=== PATIENT | male | born 1950 | race Caucasian/White ===

== ENCOUNTER → 2018-05-06 | Outpatient (CLI) | payer MEDICARE, SELFPAY ==
[~2018-05-06] MED LIST: AMOX500 PO; ASPI81CH PO; Amiodarone HCl200 MG PO; CEPH500 PO; CLOP75 PO; ESZO3 PO; FLUC200 PO; HYDR1TAB94 PO; LEVSOD88 PO; LORA.5 PO; MIRT15 PO
[2018-05-06 11:12] LABS: BASOPHILS ABSOLUTE AUTO 0.06 K/mm3 (0.00-0.23); BASOPHILS PERCENT AUTO 1 % (0-2); EOSINOPHILS ABSOLUTE AUTO 0.07 K/mm3 (0.00-0.68); EOSINOPHILS PERCENT AUTO 1 % (0-6); Hematocrit 46.6 % (37.0-53.0); Hemoglobin 16.5 g/dL (13.5-17.5); IMMATURE GRAN ABSOLUTE AUTO 0.09 K/mm3 (0.00-0.10); IMMATURE GRAN PERCENT AUTO 1 % (0-1); LYMPHOCYTES ABSOLUTE AUTO 0.84 K/mm3 (0.84-5.20); LYMPHOCYTES PERCENT AUTO 11 % (21-46); MONOCYTES ABSOLUTE AUTO 0.58 K/mm3 (0.16-1.47); MONOCYTES PERCENT AUTO 8 % (4-13); Mean Corpuscular HGB 35.6 pg (26.0-34.0); Mean Corpuscular HGB Conc 35.4 g/dL (31.5-36.5); Mean Corpuscular Volume 101 fL (80-100); Mean Platelet Volume 10.2 fL (9.1-12.4); NEUTROPHILS ABSOLUTE AUTO 6.08 K/mm3 (1.96-9.15); NEUTROPHILS PERCENT AUTO 79 % (41-73); Platelet Count 187 K/mm3 (150-400); RDW Coefficient Variation 13.1 % (11.7-14.2); RDW Standard Deviation 48.6 fL (35.1-46.3); Red Blood Cell Count 4.63 M/mm3 (4.30-5.90); White Blood Cell Count 7.72 K/mm3 (4.00-11.30)
[2018-05-06 11:30] LABS: Alanine Aminotransfer (ALT/SGP 28 U/L (12-78); Albumin, Blood 4.1 g/dL (3.4-5.0); Albumin/Globulin Ratio 1.2 (0.8-1.8); Alk Phos 86 U/L (40-126); Anion Gap 10 mmol/L (6-16); Aspartate Aminotrans (AST/SGOT 27 U/L (12-37); Bilirubin, Total 0.5 mg/dL (0.1-1.0); Blood Urea Nitrogen 14 mg/dL (8-24); Bun/Creatinine Ratio 9.1 (12.0-20.0); CO2, Blood 26 mmol/L (21-32); Calcium, Blood 9.1 mg/dL (8.5-10.1); Chloride, Blood 102 mmol/L (98-108); Creatinine, Blood 1.54 mg/dL (0.60-1.20); Globulin, Blood 3.5 g/dL (2.2-4.0); Glomerular Filtration Rate 46 (60-); Glucose, Blood 103 mg/dL (70-99); Potassium, Blood 4.2 mmol/L (3.5-5.5); Sodium, Blood 138 mmol/L (136-145); Thyroid Stimulating Hormone 5.384 uIU/mL (0.360-4.800); Total Protein, Blood 7.6 g/dL (6.4-8.2)
[2018-05-06 11:31] LABS: Troponin I <0.017 ng/mL (0.000-0.040)
== END ==
LOC: LAB EV 11:01 → LAB SHORT 11:01
PROVIDERS: Emergency Medicine
DX: R00.2 Palpitations (principal)
CPT/HCPCS: 80053; 84443; 84484; 85025

== ENCOUNTER 2020-09-15 16:15 | Emergency (ER) | payer MEDICARE ==
[~2020-09-15] VITALS: Ht 177.8 cm; Wt 68.0 kg
[2020-09-15 17:04] LABS: BASOPHILS ABSOLUTE AUTO 0.06 K/mm3 (0.00-0.23); BASOPHILS PERCENT AUTO 1 % (0-2); EOSINOPHILS ABSOLUTE AUTO 0.13 K/mm3 (0.00-0.68); EOSINOPHILS PERCENT AUTO 1 % (0-6); Hemoglobin 16.1 g/dL (13.5-17.5); IMMATURE GRAN ABSOLUTE AUTO 0.07 K/mm3 (0.00-0.10); IMMATURE GRAN PERCENT AUTO 1 % (0-1); LYMPHOCYTES ABSOLUTE AUTO 3.13 K/mm3 (0.84-5.20); LYMPHOCYTES PERCENT AUTO 33 % (21-46); MONOCYTES ABSOLUTE AUTO 0.82 K/mm3 (0.16-1.47); MONOCYTES PERCENT AUTO 9 % (4-13); Mean Corpuscular HGB 35.8 pg (26.0-34.0); Mean Corpuscular Volume 102 fL (80-100); Mean Platelet Volume 10.2 fL (9.1-12.4); NEUTROPHILS ABSOLUTE AUTO 5.42 K/mm3 (1.96-9.15); NEUTROPHILS PERCENT AUTO 56 % (41-73); Platelet Count 160 K/mm3 (150-400); RDW Coefficient Variation 13.5 % (11.7-14.2); RDW Standard Deviation 51.3 fL (35.1-46.3); White Blood Cell Count 9.63 K/mm3 (4.00-11.30)
[2020-09-15 17:20] LABS: Albumin, Blood 4.1 g/dL (3.4-5.0); Albumin/Globulin Ratio 1.3 (0.8-1.8); Bilirubin, Total 0.4 mg/dL (0.1-1.0); Calcium, Blood 9.8 mg/dL (8.5-10.1); Creatinine, Blood 1.43 mg/dL (0.60-1.20); Globulin, Blood 3.2 g/dL (2.2-4.0); Potassium, Blood 4.2 mmol/L (3.5-5.5); Total Protein, Blood 7.3 g/dL (6.4-8.2); Troponin I 0.024 ng/mL (0.000-0.040)
[2021-01-06] MEDS ORDERED: 1/2 NS 250ml250 ML (15:48)
[2021-01-06] MEDS ORDERED: ATOR10 PO (15:48)
[2021-01-06] MEDS ORDERED: ENTRESTO 24 MG1 EACH PO (15:48)
[2021-01-06] MEDS ORDERED: Aspir 8181 MG PO (15:49)
[2021-01-06] MEDS ORDERED: TRAZ100 PO (15:49)
== END 2020-09-15 22:00 | disposition home or self-care (01) ==
LOC: ER 16:15
PROVIDERS: Physician Assistant
DX: I10 Essential (primary) hypertension (principal); Z79.899 Other long term (current) drug therapy; Z87.891 Personal history of nicotine dependence
CPT/HCPCS: 36415; 71046; 80053; 84484; 85025; 93005; 93010; 99285-25

== ENCOUNTER 2021-01-07 07:23 | Day surgery (SDC) | payer MEDICARE ==
[~2021-01-07] VITALS: Ht 177.8 cm; Wt 69.2 kg
[~2021-01-07 07:23] MED LIST changes: +1/2 NS 250ml250 ML; +ATOR10 PO; +Aspir 8181 MG PO; +ENTRESTO 24 MG1 EACH PO; +TRAZ100 PO
[2021-01-07] MEDS ORDERED: Isosorbide Mono30 MG PO (10:01)
--- NOTE | 2021-01-07 12:30 | NUR ---
PT DRESSED, TR BAND REMOVED, SITE CLEANSED. CLOTH DOT PLACED, NO BLEEDING NOTED. SALINE LOCK REMOVED WITH CATHETER INTACT. RIGHT ARM PLACED IN SLING. DISCHARGE INSTRUCTIONS REVIEWED WITH PT. PT VERBALIZES UNDERSTANDING OF INSTRUCTIONS. PT TO PRIVATE VEHICLE PER W/C.
== END 2021-01-07 12:30 | disposition home or self-care (01) ==
LOC: MHTC 07:23
DX: I13.0 Hypertensive heart and chronic kidney disease with heart failure and stage 1 through stage 4 chronic kidney disease, or unspecified chronic kidney disease (principal); I50.21 Acute systolic (congestive) heart failure; R94.30 Abnormal result of cardiovascular function study, unspecified; I47.2 Ventricular tachycardia; I48.0 Paroxysmal atrial fibrillation; E78.5 Hyperlipidemia, unspecified; N18.9 Chronic kidney disease, unspecified; E03.9 Hypothyroidism, unspecified; Z87.891 Personal history of nicotine dependence; Z95.810 Presence of automatic (implantable) cardiac defibrillator; Z79.82 Long term (current) use of aspirin
CPT/HCPCS: 76937; 93005; 93010; 93454; 99152; 99153; A9270; C1769; C1894; J2250; J3010; J7030; J7050; Q9967

== ENCOUNTER → 2021-08-05 | Outpatient (CLI) | payer MEDICARE ==
[~2021-08-05] MED LIST changes: +Isosorbide Mono30 MG PO
[2021-08-05 15:22] LABS: Hematocrit 40.3 % (37.0-53.0); Hemoglobin 14.1 g/dL (13.5-17.5); Mean Corpuscular HGB 34.7 pg (26.0-34.0); Mean Corpuscular Volume 99 fL (80-100); Mean Platelet Volume 10.1 fL (9.1-12.4); Platelet Count 227 K/mm3 (150-400); RDW Standard Deviation 47.7 fL (35.1-46.3); Red Blood Cell Count 4.06 M/mm3 (4.30-5.90); White Blood Cell Count 32.12 K/mm3 (4.00-11.30)
[2021-08-05 15:27] LABS: Bun/Creatinine Ratio 13.1 (12.0-20.0); Calcium, Blood 8.9 mg/dL (8.5-10.1); Creatinine, Blood 1.37 mg/dL (0.60-1.20); Potassium, Blood 4.6 mmol/L (3.5-5.5)
[2021-08-05 15:54] LABS: BAND PERCENT MAN 13 % (0-8); BASOPHILS PERCENT MAN 0 % (0-2); EOSINOPHILS PERCENT MAN 0 % (0-6); LYMPHOCYTES PERCENT MAN 5 % (21-46); MONOCYTES PERCENT MAN 0 % (4-13); NEUTROPHILS ABSOLUTE MAN 30.51 K/mm3 (1.96-9.15); SEG NEUTROPHILS PERCENT MAN 82 % (41-73); TOTAL CELLS COUNTED 100
== END ==
LOC: LAB 15:13 → LAB SHORT 15:13
PROVIDERS: Physician Assistant Surgical
DX: R06.00 Dyspnea, unspecified (principal)
CPT/HCPCS: 80048; 83880; 85025

== ENCOUNTER 2021-09-16 20:05 | Inpatient (IN) | payer MEDICARE ==
[~2021-09-16] VITALS: Ht 177.8 cm; Wt 67.7 kg
[2021-09-16 20:36] LABS: BASOPHILS ABSOLUTE AUTO 0.06 K/mm3 (0.00-0.23); BASOPHILS PERCENT AUTO 1 % (0-2); EOSINOPHILS ABSOLUTE AUTO 0.15 K/mm3 (0.00-0.68); EOSINOPHILS PERCENT AUTO 2 % (0-6); Hematocrit 40.8 % (37.0-53.0); Hemoglobin 14.3 g/dL (13.5-17.5); IMMATURE GRAN ABSOLUTE AUTO 0.05 K/mm3 (0.00-0.10); IMMATURE GRAN PERCENT AUTO 1 % (0-1); LYMPHOCYTES PERCENT AUTO 38 % (21-46); MONOCYTES ABSOLUTE AUTO 0.68 K/mm3 (0.16-1.47); MONOCYTES PERCENT AUTO 7 % (4-13); Mean Corpuscular HGB 34.1 pg (26.0-34.0); Mean Corpuscular Volume 97 fL (80-100); Mean Platelet Volume 9.8 fL (9.1-12.4); NEUTROPHILS ABSOLUTE AUTO 5.26 K/mm3 (1.96-9.15); NEUTROPHILS PERCENT AUTO 53 % (41-73); Platelet Count 210 K/mm3 (150-400); RDW Standard Deviation 50.1 fL (35.1-46.3); Red Blood Cell Count 4.19 M/mm3 (4.30-5.90)
[2021-09-16 20:54] LABS: International Normalized Ratio 0.97; Prothrombin Time Results 10.2 Sec (9.7-11.5)
[2021-09-16 20:59] LABS: Albumin/Globulin Ratio 1.2 (0.8-1.8); Bilirubin, Total 0.4 mg/dL (0.1-1.0); Bun/Creatinine Ratio 12.2 (12.0-20.0); Calcium, Blood 9.4 mg/dL (8.5-10.1); Creatinine, Blood 1.47 mg/dL (0.60-1.20); Globulin, Blood 3.3 g/dL (2.2-4.0); Magnesium, Blood 2.2 mg/dL (1.6-2.4); Potassium, Blood 4.2 mmol/L (3.5-5.5); Total Protein, Blood 7.3 g/dL (6.4-8.2)
[2021-09-16 23:15] LABS: Bun/Creatinine Ratio 12.5 (12.0-20.0); Calcium, Blood 8.9 mg/dL (8.5-10.1); Creatinine, Blood 1.28 mg/dL (0.60-1.20)
[2021-09-16] MEDS ORDERED: VITAMIN D5000 UNIT PO (23:27)
[2021-09-16] MEDS ORDERED: TURMERIC500 M2 PO (23:29)
[2021-09-17 01:11] LABS: Source, Urine Clean Catch
[2021-09-17 01:12] LABS: Bilirubin, Urine Neg (Neg); Blood, Urine Neg (Neg); Glucose Qualitative, Urine Neg (Neg); Ketones, Urine 1+ (Neg); Leukocyte Esterase, Urine Neg (Neg); Nitrite, Urine Neg (Neg); Protein, Urine Neg (Neg); Specific Gravity, Urine 1.015 (1.003-1.022); Urobilinogen, Urine NORM (Normal)
[2021-09-17 01:17] LABS: Appearance, Urine Clear (Clear); Color, Urine Yellow (P-Yellow)
[2021-09-17 04:38] LABS: BASOPHILS ABSOLUTE AUTO 0.05 K/mm3 (0.00-0.23); BASOPHILS PERCENT AUTO 1 % (0-2); EOSINOPHILS ABSOLUTE AUTO 0.18 K/mm3 (0.00-0.68); EOSINOPHILS PERCENT AUTO 2 % (0-6); Hematocrit 39.5 % (37.0-53.0); Hemoglobin 13.7 g/dL (13.5-17.5); IMMATURE GRAN ABSOLUTE AUTO 0.06 K/mm3 (0.00-0.10); IMMATURE GRAN PERCENT AUTO 1 % (0-1); LYMPHOCYTES ABSOLUTE AUTO 1.58 K/mm3 (0.84-5.20); LYMPHOCYTES PERCENT AUTO 21 % (21-46); MONOCYTES ABSOLUTE AUTO 0.74 K/mm3 (0.16-1.47); MONOCYTES PERCENT AUTO 10 % (4-13); Mean Corpuscular HGB 34.3 pg (26.0-34.0); Mean Corpuscular HGB Conc 34.7 g/dL (31.5-36.5); Mean Corpuscular Volume 99 fL (80-100); NEUTROPHILS ABSOLUTE AUTO 4.91 K/mm3 (1.96-9.15); NEUTROPHILS PERCENT AUTO 65 % (41-73); Platelet Count 173 K/mm3 (150-400); RDW Standard Deviation 51.2 fL (35.1-46.3); White Blood Cell Count 7.52 K/mm3 (4.00-11.30)
[2021-09-17 04:59] LABS: Albumin, Blood 3.3 g/dL (3.4-5.0); Albumin/Globulin Ratio 1.2 (0.8-1.8); Bilirubin, Total 0.6 mg/dL (0.1-1.0); Bun/Creatinine Ratio 12.5 (12.0-20.0); Calcium, Blood 8.7 mg/dL (8.5-10.1); Creatinine, Blood 1.2 mg/dL (0.60-1.20); Globulin, Blood 2.7 g/dL (2.2-4.0); Potassium, Blood 3.9 mmol/L (3.5-5.5)
[2021-09-17 05:09] LABS: CPK Creatine Kinase 74 U/L (39-308)
--- NOTE | 2021-09-17 06:00 | NUR ---
PT ADMITTED TO ROOM ICU 4 AT 2300. PT SLIDE TRANSFERRED TO BED FROM [facility]. NO COMPLAINTS OF CHEST PAIN OR PRESSURE. PER MONITOR, PT APPROX 50 -75 PERCENT ATRIAL PACED. PT ALERT AND ORIENTED. VERY GOOD HISTORIAN. WILL REVIEW CHART AND PLAN OF CARE FOR THIS PT.
--- NOTE | 2021-09-17 06:30 | NUR ---
PT HAS COMPLAINT THAT WHEN HE TAKES AMIODRARONE, IT AFFECTS HIS SLEEP, AND THAT HE FEELS HE HAD NOT GOTTEN ANY SLEEP SINCE ADMIT. CALL MADE TO DR SINGLETARY AND ORDER RECEIVED FOR 0.5MG ATIVAN. WHEN MED WAS AVAILABLE, THIS WAS BROUGHT TO PT, AT THAT TIME, PT WAS ASLEEP SO MED WAS HELD. PT CONTINUES ON AMIODARONE DRIP WITHOUT ANY V-TACH. REMAINS MOSTLY PACED WITH OCCASSIONAL PVC'S. AGAIN, NO CHEST PAIN OR PRESSURE. EKG OBTAINED THIS AM. PT VOIDS Q.S. MOVES ABOUT IN BED ON HIS OWN. WILL CONTINUE TO MONITOR PT, AND WILL REPORT OFF TO ONCOMING RN.
--- NOTE | 2021-09-17 07:40 | NUR ---
PT RESTING ON ROOM AIR. VITALS STABLE AT THIS TIME. PECER NOTED TO HAVE TWO ATRIAL PACING SPIKES BEFORE A VENTRICULAR RESPONSE WAS INITIATED BY THE HEART, NO VENTRICULAR PACING SPIKES SEEN AT THIS TIME. [employer] INTERROGATION REPORTS AICD TO BE AV PACED. PT'S AK INTERVAL IS .25
[2021-09-17 13:45] LABS: CPK Creatine Kinase 79 U/L (39-308)
--- NOTE | 2021-09-17 16:43 | NUR ---
SUMMARY NEURO; A/O X4, WNL LUNGS: WNL CARDIAC; PT AICD IS AV PACE AAI=DDD, MOSTLY FIRING ATRIAL WITH FEW VENTRICULAR SPIKES AT A RATE OF 60 BPM THROUGHOUT SHIFT. SEE [employer] INTERROGATE INFO IN PAPER CHART. AMIO DRIP RUNNING AT .5. PLAN TO FINISH BAG THEN TRANSITION TO PO PRIOR TO DISCHARGE. GI/: WNL, LAST BM 09/17/21
--- NOTE | 2021-09-17 18:03 | NUR ---
PT PACER DID NOT CAPTURE FOR FOUR BEATS AT 09/17/21 AT 17:55:14. ATTEMPTED TO NOTIFY TRAFFIC ENGINEERING DIRECTORLAINA- NO ANSWER AT THIS TIME. STRIP PLACED IN BOTH ELECTRONIC AND PAPER CHART
--- NOTE | 2021-09-17 20:00 | NUR ---
PT IS A/0X4, ON ROOM AIR, VISITING WITH FRIEND IN ROOM. AMIODARONE GTT WILL BE FINISHED THIS SHIFT AND HE WILL RESUME PO AMIODARONE TOMORROW. PT STATES HE IS VERY TIRED AND WANTS TO TRY AND SLEEP TONIGHT. HE STANDS AT BEDSIDE WITH NURSE IN ROOM TO USE THE URINAL. ON MONITOR, AICD IS SHOWING OCCASIONAL VENTRICULAR PACING WITH CAPTURE. ALL VSS AT THIS TIME. ORDERS REVIEWED AND WILL TREAT PRESCRIBED.
--- NOTE | 2021-09-18 06:47 | NUR ---
NO ACUTE EVENTS OVERNIGHT. AICD CONTINUED TO VENTRICULAR PACE WHEN NEEDED, RATE STAYED ABOVE SET ATRIAL RATE OF 60, RHYTHM ON MONITOR SHOWED AFIB. PT SLEPT WELL FOR MOST OF THE SHIFT. VITALS REMAINED STABLE ON ROOM AIR AND AFEBRILE. AMIODARONE GTT OFF AT 0048. HE IS ANTICIPATING DISCHARGE HOME TODAY. WILL REPORT TO ONCOMING SHIFT WHEN AVAILABLE.
--- NOTE | 2021-09-18 07:30 | NUR ---
TOOK OVER CARE OF PT AT 0700, PT RESTING ON RA, AMIODARONE INFUSION COMPLETE
== END 2021-09-18 13:25 | disposition home or self-care (01) | DRG 309 ==
LOC: ER 20:05 → ICUW 23:07 → ICUE 23:07
PROVIDERS: Student in an Organized Health Care Education/Training Program; ADMIT Internal Medicine
PROC: 4B02XTZ Measurement of Cardiac Defibrillator, External Approach (ICD-10-PCS; principal; 2021-09-16)
DX: I47.2 Ventricular tachycardia (principal); I50.22 Chronic systolic (congestive) heart failure; I42.8 Other cardiomyopathies; E78.5 Hyperlipidemia, unspecified; E03.9 Hypothyroidism, unspecified; Z79.899 Other long term (current) drug therapy; Z98.890 Other specified postprocedural states; Z85.828 Personal history of other malignant neoplasm of skin; Z95.1 Presence of aortocoronary bypass graft; I25.2 Old myocardial infarction; Z95.0 Presence of cardiac pacemaker; Z86.16 Personal history of COVID-19; I48.0 Paroxysmal atrial fibrillation
CPT/HCPCS: 36415; 71045; 80048; 80053; 81003; 82550; 83735; 83880; 84484; 85025; 85610; 85730; 93005; 93010; 93306; 99285-25; A9270; J0282; J1650; J3475; J7060

== ENCOUNTER 2022-05-23 10:35 | Day surgery (SDC) | payer MEDICARE ==
[~2022-05-23 10:35] MED LIST changes: +TURMERIC500 M2 PO; +VITAMIN D5000 UNIT PO
[2022-05-23] MEDS ORDERED: VALS80 (11:32)
== END 2022-05-23 13:15 | disposition home or self-care (01) ==
DX: Z12.11 Encounter for screening for malignant neoplasm of colon (principal); Z86.010 Personal history of colon polyps; Z80.0 Family history of malignant neoplasm of digestive organs; E03.9 Hypothyroidism, unspecified; E78.5 Hyperlipidemia, unspecified; I48.91 Unspecified atrial fibrillation; J44.9 Chronic obstructive pulmonary disease, unspecified; Z87.891 Personal history of nicotine dependence; I12.9 Hypertensive chronic kidney disease with stage 1 through stage 4 chronic kidney disease, or unspecified chronic kidney disease; N18.9 Chronic kidney disease, unspecified; Z79.82 Long term (current) use of aspirin; Z79.899 Other long term (current) drug therapy

== ENCOUNTER → 2022-11-14 | Outpatient (CLI) | payer MEDICARE ==
[~2022-11-14] MED LIST changes: +Bisoprolol Fumar5 MG PO; +DOXY100 PO; +GUAI600T33 PO; +LEVOTHYROXINE112 M19 PO; +MAGNESIUM OXID500 MG PO; +VALS80; +VALS80 PO
[2022-11-14 09:43] LABS: BASOPHILS ABSOLUTE AUTO 0.05 K/mm3 (0.00-0.23); BASOPHILS PERCENT AUTO 0 % (0-2); EOSINOPHILS ABSOLUTE AUTO 0.02 K/mm3 (0.00-0.68); EOSINOPHILS PERCENT AUTO 0 % (0-6); Hematocrit 39.2 % (37.0-53.0); Hemoglobin 13.6 g/dL (13.5-17.5); IMMATURE GRAN ABSOLUTE AUTO 0.26 K/mm3 (0.00-0.10); IMMATURE GRAN PERCENT AUTO 2 % (0-1); LYMPHOCYTES ABSOLUTE AUTO 0.63 K/mm3 (0.84-5.20); LYMPHOCYTES PERCENT AUTO 4 % (21-46); MONOCYTES ABSOLUTE AUTO 0.96 K/mm3 (0.16-1.47); MONOCYTES PERCENT AUTO 6 % (4-13); Mean Corpuscular HGB 35.5 pg (26.0-34.0); Mean Corpuscular HGB Conc 34.7 g/dL (31.5-36.5); Mean Corpuscular Volume 102 fL (80-100); NEUTROPHILS ABSOLUTE AUTO 14.33 K/mm3 (1.96-9.15); NEUTROPHILS PERCENT AUTO 88 % (41-73); Platelet Count 150 K/mm3 (150-400); RDW Coefficient Variation 14.5 % (11.7-14.2); RDW Standard Deviation 54.3 fL (35.1-46.3); Red Blood Cell Count 3.83 M/mm3 (4.30-5.90); White Blood Cell Count 16.25 K/mm3 (4.00-11.30)
[2022-11-14 09:44] LABS: Albumin, Blood 2.9 g/dL (3.4-5.0); Albumin/Globulin Ratio 0.7 (0.8-1.8); Bilirubin, Total 0.5 mg/dL (0.1-1.0); Bun/Creatinine Ratio 20.6 (12.0-20.0); Calcium, Blood 9.5 mg/dL (8.5-10.1); Creatinine, Blood 1.36 mg/dL (0.60-1.20); Globulin, Blood 3.9 g/dL (2.2-4.0); Potassium, Blood 4.7 mmol/L (3.5-5.5); Total Protein, Blood 6.8 g/dL (6.4-8.2)
== END | disposition home or self-care (01) ==
LOC: LAB 09:20 → LAB SHORT 09:20
PROVIDERS: Physician Assistant Medical
DX: R53.83 Other fatigue (principal)
CPT/HCPCS: 80053; 82550; 83690; 85025

== ENCOUNTER → 2022-11-15 | Outpatient (CLI) | payer MEDICARE ==
[~2022-11-15] MED LIST changes: +ATEN25 PO; +Prinivil10 MG PO; +SENN187 PO
[2022-11-15 15:37] LABS: BASOPHILS ABSOLUTE AUTO 0.06 K/mm3 (0.00-0.23); BASOPHILS PERCENT AUTO 1 % (0-2); EOSINOPHILS ABSOLUTE AUTO 0.01 K/mm3 (0.00-0.68); EOSINOPHILS PERCENT AUTO 0 % (0-6); Hematocrit 39.7 % (37.0-53.0); Hemoglobin 14.2 g/dL (13.5-17.5); IMMATURE GRAN ABSOLUTE AUTO 0.44 K/mm3 (0.00-0.10); IMMATURE GRAN PERCENT AUTO 4 % (0-1); LYMPHOCYTES ABSOLUTE AUTO 0.95 K/mm3 (0.84-5.20); LYMPHOCYTES PERCENT AUTO 9 % (21-46); MONOCYTES ABSOLUTE AUTO 0.92 K/mm3 (0.16-1.47); MONOCYTES PERCENT AUTO 9 % (4-13); Mean Corpuscular HGB 35.7 pg (26.0-34.0); Mean Corpuscular HGB Conc 35.8 g/dL (31.5-36.5); Mean Corpuscular Volume 100 fL (80-100); Mean Platelet Volume 11.5 fL (9.1-12.4); NEUTROPHILS PERCENT AUTO 77 % (41-73); Platelet Count 177 K/mm3 (150-400); RDW Coefficient Variation 14.2 % (11.7-14.2); Red Blood Cell Count 3.98 M/mm3 (4.30-5.90); White Blood Cell Count 10.28 K/mm3 (4.00-11.30)
== END | disposition home or self-care (01) ==
LOC: LAB 15:34 → LAB SHORT 15:34
PROVIDERS: Physician Assistant Medical
DX: J18.1 Lobar pneumonia, unspecified organism (principal)
CPT/HCPCS: 85025

== ENCOUNTER 2022-11-16 07:49 | Inpatient (IN) | payer MEDICARE ==
[~2022-11-16] VITALS: Ht 177.8 cm; Wt 64.6 kg
[~2022-11-16 07:49] MED LIST changes: -ATEN25 PO; -Bisoprolol Fumar5 MG PO; -DOXY100 PO; -GUAI600T33 PO; -LEVOTHYROXINE112 M19 PO; -MAGNESIUM OXID500 MG PO; -Prinivil10 MG PO; -SENN187 PO; -VALS80 PO
[2022-11-16 08:32] LABS: Hematocrit 38.2 % (37.0-53.0); Hemoglobin 13.3 g/dL (13.5-17.5); Mean Corpuscular HGB 34.9 pg (26.0-34.0); Mean Corpuscular HGB Conc 34.8 g/dL (31.5-36.5); Mean Corpuscular Volume 100 fL (80-100); Mean Platelet Volume 10.8 fL (9.1-12.4); Platelet Count 146 K/mm3 (150-400); RDW Coefficient Variation 14.1 % (11.7-14.2); RDW Standard Deviation 51.8 fL (35.1-46.3); Red Blood Cell Count 3.81 M/mm3 (4.30-5.90); White Blood Cell Count 10.25 K/mm3 (4.00-11.30)
[2022-11-16 08:50] LABS: Albumin, Blood 2.8 g/dL (3.4-5.0); Albumin/Globulin Ratio 0.8 (0.8-1.8); Bilirubin, Total 0.9 mg/dL (0.1-1.0); Bun/Creatinine Ratio 14.4 (12.0-20.0); Calcium, Blood 9.5 mg/dL (8.5-10.1); Creatinine, Blood 1.74 mg/dL (0.60-1.20); Globulin, Blood 3.5 g/dL (2.2-4.0); Magnesium, Blood 2.1 mg/dL (1.6-2.4); Potassium, Blood 4.7 mmol/L (3.5-5.5); Total Protein, Blood 6.3 g/dL (6.4-8.2)
[2022-11-16 09:09] LABS: BAND PERCENT MAN 5 % (0-8); BASOPHILS PERCENT MAN 0 % (0-2); EOSINOPHILS PERCENT MAN 0 % (0-6); LYMPHOCYTES ABSOLUTE MAN 1.02 K/mm3 (0.84-5.20); LYMPHOCYTES PERCENT MAN 10 % (21-46); METAMYELOCYTE PERCENT MAN 1 % (0-0); MONOCYTES ABSOLUTE MAN 0.41 K/mm3 (0.16-1.47); MONOCYTES PERCENT MAN 4 % (4-13); MYELOCYTE ABSOLUTE MAN 1.43 K/mm3 (0.00-0.00); MYELOCYTE PERCENT MAN 14 % (0-0); NEUTROPHILS ABSOLUTE MAN 7.27 K/mm3 (1.96-9.15); SEG NEUTROPHILS PERCENT MAN 66 % (41-73); TOTAL CELLS COUNTED 100
[2022-11-16] MEDS ORDERED: Bisoprolol Fumar5 MG PO ×2 (12:47)
[2022-11-16] MEDS ORDERED: MAGNESIUM OXID500 MG PO ×2 (12:48)
[2022-11-16] MEDS ORDERED: LEVOTHYROXINE112 M19 PO ×2 (12:48)
[2022-11-16] MEDS ORDERED: VALS80 PO ×2 (12:49)
[2022-11-16] MEDS ORDERED: TRAZ100 PO ×2 (12:49)
[2022-11-16 16:01] VITALS: BP 138/101
--- NOTE | 2022-11-16 17:45 | NUR ---
SHIFT SUMMARY; ER ADMIT. MOVES SELF FROM ER GURNEY TO BED WITH SBA. L/S CLEAR T/O, DENIES CP, VSS. A/A/OX4. PACEMAKER ADJUSTMENTS MADE BY [employer] TECH. NO ACUTE CHANGES, NO WHITNESSED ARRYTHMIAS DURING SHIFT. WILL CONTINUE TO MONITOR AND TREAT UNTIL CHANGE OF SHIFT.
[2022-11-16 19:31] VITALS: BP 137/89
--- NOTE | 2022-11-16 20:06 | NUR ---
ASSUMPTION OF CARE THIS RN ASSUMED CARE OF PATIENT AT 1900. REPORT TAKEN FROM JACINDA ITMMONS. PATIENT ALERT AND ORIENTED FULLY, ABLE TO MAKE NEEDS KNOWN. PATIENT DENIES CHEST PAIN/PRESSURE. OCCASIONAL AV PACED, SR WITH PVC'S HR 60-70'S. BP STABLE. SPO2 >92% ON RA. AFEBRILE. NO NEEDS AT THIS TIME. BED IN LOWEST POSITION AND CALL LIGHT WITHIN REACH.
[2022-11-16 23:48] VITALS: BP 153/99
--- NOTE | 2022-11-17 04:22 | NUR ---
SHIFT SUMMARY NO ACUTE CHANGES OVERNIGHT. PATIENT IS ALERT AND ORIENTED FULLY. ABLE TO MAKE NEEDS KNOWN. BP STABLE. AFEBRILE. OCCASIONALLY AV PACED WHILE SLEEPING WITH HR 80-100, OTHERWISE SR WITH OCCASIONAL PVC'S WITH HR 60-70'S. SPO2 >92% ON RA. PATIENT IS ABLE TO TURN SELF IN BED INDEPENDENTLY. PATIENT EXPRESSED ANXIETY AND INSOMNIA DURING THIS SHIFT IN REGARDS TO HIS RECENT DEFIBRILLATION WHILE AT HOME; THIS RN SPOKE TO MD AND ORDERED HIS HOME DOSE OF TRAZODONE; PT HAS BEEN SLEEPING SINCE; SEE EMAR. BED IN LOWEST POSITION AND CALL LIGHT WITHIN REACH. THIS RN WILL CONTINUE TO MONITOR UNTIL SHIFT CHANGE AT 0700.
[2022-11-17 04:55] VITALS: BP 108/89
[2022-11-17 08:11] VITALS: BP 152/88
[2022-11-17] MEDS ORDERED: GUAI600T33 PO ×2 (09:41)
[2022-11-17] MEDS ORDERED: DOXY100 PO ×2 (09:41)
--- NOTE | 2022-11-17 11:33 | NUR ---
DISCHARGE NOTE. D/C PT IV AND EDUCATION ABOUT MEDICATIONS AND DISCHARGE INSTRUCTIONS ADMINISTERED AT BEDSIDE TO PT AND FAMILY MEMBER. PT VERBALIZED UNDERSTANDING ABOUT CONTINUING PO ANTIBIOTIC AN OUTPATIENT AND FOLLOWUPS WITH HIS PRIMARY CARE AND CARDIOLOGY WITHIN THE UPCOMING TWO WEEKS. PT COLLECTED AND LEFT WITH ALL BELONGINGS. NO FURTHER DISCHARGE NEEDS NOTED AT THIS TIME.
== END 2022-11-17 11:00 | disposition home or self-care (01) | DRG 280 ==
LOC: ER 07:49 → PCU 11:14
PROVIDERS: Student in an Organized Health Care Education/Training Program; ADMIT Internal Medicine
PROC: 5A2204Z Restoration of Cardiac Rhythm, Single (ICD-10-PCS; principal; 2022-11-16)
DX: I47.29 Other ventricular tachycardia (principal); J18.9 Pneumonia, unspecified organism; I21.A1 Myocardial infarction type 2; I42.8 Other cardiomyopathies; I50.22 Chronic systolic (congestive) heart failure; N17.9 Acute kidney failure, unspecified; E78.5 Hyperlipidemia, unspecified; E03.9 Hypothyroidism, unspecified; N18.30 Chronic kidney disease, stage 3 unspecified; Z95.810 Presence of automatic (implantable) cardiac defibrillator; Z90.89 Acquired absence of other organs; Z85.89 Personal history of malignant neoplasm of other organs and systems; Z79.82 Long term (current) use of aspirin; Z79.890 Hormone replacement therapy; Z79.899 Other long term (current) drug therapy
CPT/HCPCS: 71045; 80053; 83735; 83880; 84145; 84443; 84484; 85025; 93005; 93010; 96365; 96375; 99285-25; A9270; J0696; J7030

== ENCOUNTER 2022-11-18 14:55 | Inpatient (IN) | payer MEDICARE ==
[~2022-11-18] VITALS: Ht 177.8 cm; Wt 61.4 kg
[~2022-11-18 14:55] MED LIST changes: +Bisoprolol Fumar5 MG PO; +DOXY100 PO; +GUAI600T33 PO; +LEVOTHYROXINE112 M19 PO; +MAGNESIUM OXID500 MG PO; +VALS80 PO
[2022-11-18 15:54] LABS: Albumin, Blood 3.2 g/dL (3.4-5.0); Albumin/Globulin Ratio 0.8 (0.8-1.8); Bilirubin, Total 0.7 mg/dL (0.1-1.0); Bun/Creatinine Ratio 14.7 (12.0-20.0); Calcium, Blood 9.1 mg/dL (8.5-10.1); Creatinine, Blood 1.63 mg/dL (0.60-1.20); Globulin, Blood 3.9 g/dL (2.2-4.0); Hematocrit 43.7 % (37.0-53.0); Hemoglobin 15.2 g/dL (13.5-17.5); Magnesium, Blood 1.6 mg/dL (1.6-2.4); Mean Corpuscular HGB 34.9 pg (26.0-34.0); Mean Corpuscular HGB Conc 34.8 g/dL (31.5-36.5); Mean Corpuscular Volume 100 fL (80-100); Mean Platelet Volume 10.6 fL (9.1-12.4); Platelet Count 208 K/mm3 (150-400); Potassium, Blood 4.4 mmol/L (3.5-5.5); RDW Coefficient Variation 13.4 % (11.7-14.2); Red Blood Cell Count 4.36 M/mm3 (4.30-5.90); Total Protein, Blood 7.1 g/dL (6.4-8.2); White Blood Cell Count 11.39 K/mm3 (4.00-11.30)
[2022-11-18 16:36] LABS: BAND PERCENT MAN 5 % (0-8); BASOPHILS PERCENT MAN 0 % (0-2); EOSINOPHILS PERCENT MAN 0 % (0-6); LYMPHOCYTES PERCENT MAN 15 % (21-46); METAMYELOCYTE ABSOLUTE MAN 0.22 K/mm3 (0.00-0.00); METAMYELOCYTE PERCENT MAN 2 % (0-0); MONOCYTES ABSOLUTE MAN 0.45 K/mm3 (0.16-1.47); MONOCYTES PERCENT MAN 4 % (4-13); MYELOCYTE ABSOLUTE MAN 1.13 K/mm3 (0.00-0.00); MYELOCYTE PERCENT MAN 10 % (0-0); NEUTROPHILS ABSOLUTE MAN 7.85 K/mm3 (1.96-9.15); SEG NEUTROPHILS PERCENT MAN 64 % (41-73); TOTAL CELLS COUNTED 100
[2022-11-18 18:03] VITALS: BP 136/87
--- NOTE | 2022-11-18 19:15 | NUR ---
ADMISSION NOTE PT IS ALERT AND ORIENTED X 4, HE ARRIVED TO PCU APPROX 1744 W/ AT BEDSIDE, AMIODARONE AND MAGNESIUM INFUSING PER EMAR ORDERS. VSS, HR IS PACED AT 60, PT IS ON RA AND SPO2 97%. PT DENIES PAIN AT THIS TIME BUT REPORTS ANXIETY DUE TO BEING DEFIBRILATED. DR. KRISHNAMURTHY IS AT BEDSIDE AT THIS TIME. REPORT GIVEN TO LE TIMMONS.
[2022-11-18 21:08] VITALS: BP 138/94
[2022-11-19] VITALS (7 sets, daily range): BP systolic 94–137; BP diastolic 64–98
[2022-11-19 04:49] LABS: Calcium, Blood 8.9 mg/dL (8.5-10.1); Creatinine, Blood 1.44 mg/dL (0.60-1.20); Magnesium, Blood 1.9 mg/dL (1.6-2.4); Potassium, Blood 4.1 mmol/L (3.5-5.5)
--- NOTE | 2022-11-19 05:58 | NUR ---
SHIFT SUMMARY ASSUMED CARE OF PT AT 1900. PT IS A/OX4. HEART SOUNDS REGULAR. LUNG SOUNDS SIMINISHED AT BASES. PT WAS ABLE TO WALK TO BATHROOM WITH 1P SBA WITH CORDS. PT C/O NOT BEING ABLE TO SLEEP AND HAVING ANXITEY ABOUT SLEEPING. T WAS ABLE TO SLEEP T/O THE NOC UNTIL ABOUT 0400 THIS AM DURING LAB CHECK. PT STATES FEELING "BAD" LIKE BEFRE WHEN HE HAD HIS CARDIAC EVENT AT HOME. VSS, TELE SHOWED NO ACUTE EVENTS. LUNG SOUNDS SAME BEFORE. PT STATES A GENERALIZED ACHING IN HIS BODY. MEDICATED PER EMAR. PT FELL BACK ASLEEP.
--- NOTE | 2022-11-19 12:40 | NUR ---
UPDATE PT DID NOT RECIEVE DOSE OF ATENOLOL THIS AM IT WAS NOT SCHEDULED. PER HOSPITALIST PLAN TO GIVE ONE DOSE THIS EVENING TO STAY ON DAILY SCHEDULE.
--- NOTE | 2022-11-19 15:23 | NUR ---
IV INFILTRATED IV CHECKED DURING ROUNDING. IV WHERE AMIO GTT INFUSING INFILTRATED, PATENT THIS AM. SMALL AMOUNT OF REDNESS NOTED. IV REMOVED. PHARMACIST NOTIFIED. INSTRUCTED TO APPLY ICE AND RECIEVE AN ORDER FOR 1% HYDROCORTISONE CREAM IF NEEDED. PT REPORTS NO PAIN AT SITE. WILL CONT TO MONITOR.
--- NOTE | 2022-11-19 17:46 | NUR ---
SHIFT SUMMARY PT ALERT AND ORIENTED X 4. ANXIOUS AT TIMES. HR STABLE. ATRIAL PACED IN 60'S T/O ENTIRE SHIFT. BP STABLE. NO CP OR PRESSURE REPORTED. AMIO GTT INFILTRATED IN L FOREARM. ICE APPLIED AND PHARMACIST NOTIFIED. PT REPORTS NO PAIN AT SITE. OUTLINE MARKED IN BLACK INK. OXYGEN SATURATION MAINTAINED ABOVE 95% ON RA. PT SBA TO BATHROOM. CALL LIGHT WITHIN REACH. WILL CONT TO MONITOR UNTIL REPORT GIVEN TO NIGHTSHIFT RN.
--- NOTE | 2022-11-19 18:47 | NUR ---
AMIO GTT STOPPED COMPLETE AT THIS TIME
[2022-11-20 04:00] VITALS: BP 110/88
--- NOTE | 2022-11-20 06:06 | NUR ---
SHIFT SUMMARY PT A&O X4. VSS THROUGHOUT THIS SHIFT. HR REMAINS 60'S, A-PACED. NO EPISODES OF V-TACH. PT DENIES CP OR PRESSURE, DENIES SOB. DENIES PALPIATIONS. PT APPEARS A LITTLE WEAK OVERALL, BUT ABLE TO TOLERATE AMBULATING TO THE BATHROOM W/SUPERVISION. PT DENIES FEELING DIZZY OR LIGHTHEADED. PT ANXIOUS AT TIMES ON AND OFF D/T HIS CURRENT CONDITION AND HEART "PROBLEMS". PT ASKING QUESTIONS ABOUT WHAT IS GOING ON AND WHY THIS IS HAPPENING. PT ABLE TO BE SUPPORTED AND THERAPEUTIC COMMUNICATION PROVIDED. PT RESTED WELL THROUGHOUT THE NIGHT. PT WOKE UP ONCE IN SWEATS AND GOWN WAS CHANGED. PT STATES THIS HAS BEEN HAPPENING "OFTEN". PT AFEBRILE AT THIS TIME. 0400 VS SHOWED LOW GRADE FEVER OR 99.2; PT DENIES FEELING FEVERISH. PT DENIES GENERAL PAIN. WILL UPDATE ONCOMING RN.
[2022-11-20 08:57] VITALS: BP 89/64
[2022-11-20 15:41] VITALS: BP 118/93
--- NOTE | 2022-11-20 16:58 | NUR ---
SHIFT SUMMARY: PT A&Ox4, COOPERATIVE W/CARE, ABLE TO MAKE NEEDS KNOWN. PT APPEARS ANXIOUS AT TIMES, EXPRESSING CONCERNS RE: PLAN OF CARE AND PROGNOSIS. PT VERBALIZES FEELING BETTER AFTER THERAPEUTIC LISTENING AND DISCUSSION OF PLAN OF NOW. PT DENIES SOB, O2 SATS >93% ON RA. TELEMETRY MONITORING CONTINUES, A-PACED ON MONITOR W/RATE IN 60s, PT DENIES CP. PT SHOWERS INDEPENDENTLY THIS SHIFT. PT ALSO AMBULATES IN THE HALLWAY, AMBULATES APPROX 600 FT, TOLERATES WELL AND NO ADVERSE EVENTS NOTED ON TELEMETRY. AT THIS TIME, PT RESTING IN BED W/VISITOR AT BEDSIDE. WILL CONTINUE TO MONITOR AND TREAT ACCORDINGLY UNTIL CHANGE OF SHIFT.
[2022-11-20 20:00] VITALS: BP 120/80
--- NOTE | 2022-11-20 23:22 | NUR ---
REPORT RECIEVED FROM TANNER GAS OR PETROLEUM OPERATOR AND PT T/F TO ROOM 337 AT 2317. THIS RN AGREES TO PREVIOUS SHIFT ASSESSMENT FINDINGS. HE WAS ORIENTED TO NEW ROOM AND CALL SYSTEM AND DENIES COMPLAINTS AT THIS TIME. BOWEL PROTOCOL MEDS TO BE COMMENCED PER PT REQUEST. WCTM CLOSELY FOR CHANGES AND PT AWARE TO CALL FOR ASSIST PRN.
--- NOTE | 2022-11-21 01:52 | NUR ---
SUMMARY AND TRANSFER NOTE PT REMAINS A&O; PLEASANT AND COOPERATIVE WITH CARE. PT A LITTLE ANXIOUS AT TIMES R/T HOSPITALIZATION AND "BEING SHOCKED" BY DEFIBRILLATOR. VSS THROUGHOUT SHIFT. PT DENIES CP OR PRESSURE, DENIES SOB. DENIES PALPIATIONS. PT DENIES GENERAL PAIN. PT UP AMBULATING AND USING RESTROOOM INDEPENDENTLY. TOLERATES THIS WELL. PT VOIDING WELL BUT REPORTS HE HAS NOT HAD A BM FOR "3-4 DAYS" AND HE IS "CONCERNED ABOUT THIS BECAUSE I HAD PAST ISSUES WITH BEING BACKED UP". PROVIDER NOTIFIED AND BOWEL REGIMEN ORDERED. PT DID ATTEMPT TO HAVE A BM BUT WAS UNSUCCESSFUL. NO ACUTE CHANGES. PT'S AT BEDSIDE. PT TRANSFERRED TO MEDICAL FLOOR, REPORT GIVEN TO IAIN MEHTA. PT BELONGINGS SENT WITH PT. PT LEFT VIA PCU HOSPITAL BED. PT STABLE, VS, PT ON RA AT THIS TIME.
[2022-11-21 04:06] VITALS: BP 108/70
[2022-11-21 05:06] LABS: Hematocrit 42.6 % (37.0-53.0); Hemoglobin 15.1 g/dL (13.5-17.5); Mean Corpuscular HGB 34.7 pg (26.0-34.0); Mean Corpuscular HGB Conc 35.4 g/dL (31.5-36.5); Mean Corpuscular Volume 98 fL (80-100); Mean Platelet Volume 10.6 fL (9.1-12.4); Platelet Count 238 K/mm3 (150-400); RDW Coefficient Variation 13.3 % (11.7-14.2); RDW Standard Deviation 48.2 fL (35.1-46.3); Red Blood Cell Count 4.35 M/mm3 (4.30-5.90); White Blood Cell Count 10.45 K/mm3 (4.00-11.30)
[2022-11-21 05:32] LABS: Bun/Creatinine Ratio 21.2 (12.0-20.0); Creatinine, Blood 1.37 mg/dL (0.60-1.20); Potassium, Blood 4.4 mmol/L (3.5-5.5)
[2022-11-21 06:21] LABS: BASOPHILS PERCENT MAN 0 % (0-2); EOSINOPHILS PERCENT MAN 2 % (0-6); LYMPHOCYTES ABSOLUTE MAN 1.35 K/mm3 (0.84-5.20); LYMPHOCYTES PERCENT MAN 13 % (21-46); METAMYELOCYTE PERCENT MAN 1 % (0-0); MONOCYTES ABSOLUTE MAN 0.41 K/mm3 (0.16-1.47); MONOCYTES PERCENT MAN 4 % (4-13); MYELOCYTE ABSOLUTE MAN 0.41 K/mm3 (0.00-0.00); MYELOCYTE PERCENT MAN 4 % (0-0); NEUTROPHILS ABSOLUTE MAN 7.94 K/mm3 (1.96-9.15); SEG NEUTROPHILS PERCENT MAN 76 % (41-73); TOTAL CELLS COUNTED 100
--- NOTE | 2022-11-21 06:44 | NUR ---
SUMMARY: PT A/OX4, IS PLEASANT AND COOPERATIVE W/CARE AND CALLS APPROPRIATELY TO SPECIFY NEEDS. HE REMAINS ANXIOUS WA RE: AICD AND FEAR OF BEING "SHOCKED AGAIN", REPORTING FEELING "TERRIFIED IT WON'T HAPPEN UNTIL I'M HOME LIKE BEFORE". REASSURANCE PROVIDED, PLAN OF CARE EXPLAINED AND STAFF ENSURED HIM HE WAS BEING CONTINUOUSLY MONITORED ON TELEMETRY WHILE ON MEDICAL FLOOR. HE REMAINS ATRIAL PACED AT 60'S BPM W/O ECTOPIES SINCE T/F AT 2317. HE WAS ASSISTED TO TOILET TO ASSESS FOR ANY POSSIBLE EXERTIONAL ARRHYTHMIA BUT PT TOLERATED MOBILITY W/O S/S CARDIAC DISTRESS. HE'S DENIED CP, SOB AND PALPITATIONS T/O NOCTE. BOWEL PROTOCOL COMMENCED W/PRN MOM PROVIDED AT HS FOR NO RESULT AND SUPPOSITORY GIVEN THIS AM PER REQUEST D/T NO BM X4 DAYS. VSS/AFEBRILE AND NO ACUTE CHANGES. WCTM AND REPORT TO DAY RN.
[2022-11-21 07:44] VITALS: BP 109/76
[2022-11-21] MEDS ORDERED: ATEN25 PO (12:00)
[2022-11-21] MEDS ORDERED: SENN187 PO (12:01)
[2022-11-21] MEDS ORDERED: Prinivil10 MG PO (12:01)
== END 2022-11-21 13:04 | disposition home or self-care (01) | DRG 308 ==
LOC: ER 14:55 → PCU 14:56 → MEDS 11-20 23:17
PROVIDERS: Emergency Medicine; Internal Medicine; Nurse Practitioner Acute Care; ADMIT Internal Medicine
PROC: 5A2204Z Restoration of Cardiac Rhythm, Single (ICD-10-PCS; principal; 2022-11-18)
DX: I48.92 Unspecified atrial flutter (principal); J18.9 Pneumonia, unspecified organism; I50.22 Chronic systolic (congestive) heart failure; I42.8 Other cardiomyopathies; F43.10 Post-traumatic stress disorder, unspecified; E78.5 Hyperlipidemia, unspecified; N18.30 Chronic kidney disease, stage 3 unspecified; F32.A Depression, unspecified; F41.9 Anxiety disorder, unspecified; E03.9 Hypothyroidism, unspecified; Z86.79 Personal history of other diseases of the circulatory system; Z92.3 Personal history of irradiation; Z85.22 Personal history of malignant neoplasm of nasal cavities, middle ear, and accessory sinuses; Z85.038 Personal history of other malignant neoplasm of large intestine; Z79.899 Other long term (current) drug therapy; Z79.82 Long term (current) use of aspirin; Z79.2 Long term (current) use of antibiotics; Z95.0 Presence of cardiac pacemaker; Z98.890 Other specified postprocedural states; Z85.89 Personal history of malignant neoplasm of other organs and systems
CPT/HCPCS: 36415; 71045; 80048; 80053; 83735; 85025; 92960; 93005; 93010; 96361; 96372; 96372-59; 96374-59; 96375; 96375-59; 96376; 99152; 99153; 99285-25; A9270; G0378; J0282; J1650; J3475; J7060

== ENCOUNTER 2023-01-21 07:17 | Inpatient (IN) | payer MEDICARE ==
[~2023-01-21] VITALS: Ht 177.8 cm; Wt 68.9 kg
[2023-01-21] VITALS (28 sets, daily range): BP systolic 77–153; BP diastolic 50–97
[~2023-01-21 07:17] MED LIST changes: +ATEN25 PO; +Prinivil10 MG PO; +SENN187 PO
[2023-01-21 07:52] LABS: Hematocrit 44.1 % (37.0-53.0); Hemoglobin 15.1 g/dL (13.5-17.5); Mean Corpuscular HGB 35.4 pg (26.0-34.0); Mean Corpuscular HGB Conc 34.2 g/dL (31.5-36.5); Mean Corpuscular Volume 103 fL (80-100); Platelet Count 175 K/mm3 (150-400); RDW Coefficient Variation 14.9 % (11.7-14.2); RDW Standard Deviation 56.2 fL (35.1-46.3); Red Blood Cell Count 4.27 M/mm3 (4.30-5.90)
[2023-01-21 08:07] LABS: Albumin, Blood 3.1 g/dL (3.4-5.0); Albumin/Globulin Ratio 1.1 (0.8-1.8); Bilirubin, Total 1.1 mg/dL (0.1-1.0); Creatinine, Blood 1.63 mg/dL (0.60-1.20); Globulin, Blood 2.8 g/dL (2.2-4.0); Potassium, Blood 4.3 mmol/L (3.5-5.5); Total Protein, Blood 5.9 g/dL (6.4-8.2)
[2023-01-21 08:32] LABS: BAND PERCENT MAN 54 % (0-8); BASOPHILS PERCENT MAN 0 % (0-2); EOSINOPHILS PERCENT MAN 0 % (0-6); LYMPHOCYTES ABSOLUTE MAN 0.42 K/mm3 (0.84-5.20); LYMPHOCYTES PERCENT MAN 4 % (21-46); METAMYELOCYTE ABSOLUTE MAN 0.31 K/mm3 (0.00-0.00); METAMYELOCYTE PERCENT MAN 3 % (0-0); MONOCYTES ABSOLUTE MAN 0.52 K/mm3 (0.16-1.47); MONOCYTES PERCENT MAN 5 % (4-13); MYELOCYTE PERCENT MAN 1 % (0-0); NEUTROPHILS ABSOLUTE MAN 9.13 K/mm3 (1.96-9.15); SEG NEUTROPHILS PERCENT MAN 33 % (41-73); TOTAL CELLS COUNTED 100
[2023-01-21 09:02] LABS: Influenza A, PCR NEGATIVE (NEGATIVE); Influenza B, PCR NEGATIVE (NEGATIVE); Resp Syncytial Virus, PCR NEGATIVE (NEGATIVE); SARS-Cov-2 (COVID-19) PCR, MMC NEGATIVE (NEGATIVE)
[2023-01-21 11:10] LABS: Source, Urine Clean Catch
[2023-01-21 11:19] LABS: Appearance, Urine Hazy (Clear); Blood, Urine 2+ (Neg); Color, Urine Amber (P-Yellow); Glucose Qualitative, Urine Neg (Neg); Ketones, Urine 1+ (Neg); Leukocyte Esterase, Urine 1+ (Neg); Nitrite, Urine Pos (Neg); Protein, Urine 3+ (Neg); Specific Gravity, Urine 1.025 (1.003-1.022); Urobilinogen, Urine 2+ (Normal)
[2023-01-21 11:34] LABS: Bilirubin, Urine 2+ (Neg)
[2023-01-21 11:36] LABS: Bacteria Mod /hpf; Red Blood Cells, Urine Not Seen /hpf (0-2); Squamous Epithelial Cells Mod /hpf (Few)
[2023-01-21 11:37] LABS: Granular Casts 0-2 /lpf (0); Hyaline Casts 0-2 /lpf (0-2); Mucus Mod (0-Heavy)
[2023-01-21 13:27] LABS: Adenovirus F 40/41 Not Detected (NOT DETECT); Astrovirus Not Detected (NOT DETECT); Campylobacter Sp Not Detected (NOT DETECT); Cryptosporidium Not Detected (NOT DETECT); Cyclospora Cayetanensis Not Detected (NOT DETECT); E. Coli O157 Not Detected (NOT DETECT); Entamoeba Histolytica Not Detected (NOT DETECT); Enteroaggregative E. coli-EAEC Not Detected (NOT DETECT); Enteropathogenic E. coli-EPEC Not Detected (NOT DETECT); Enterotoxigenic E. coli-ETEC Not Detected (NOT DETECT); Giardia Lamblia Not Detected (NOT DETECT); Norovirus GI/GII Not Detected (NOT DETECT); Plesiomonas Shigelloides Not Detected (NOT DETECT); Rotavirus A Not Detected (NOT DETECT); Salmonella Sp Not Detected (NOT DETECT); Sapovirus Not Detected (NOT DETECT); Shiga Toxin-prod E. coli-STEC Not Detected (NOT DETECT); Shigella/Enteroin E. coli-EIEC Not Detected (NOT DETECT); Vibrio Cholerae Not Detected (NOT DETECT); Vibrio Sp Not Detected (NOT DETECT); Yersinia Enterocolitica Not Detected (NOT DETECT)
[2023-01-21 13:28] LABS: Base Excess Venous 4.9 mmol/L; Bicarbonate Venous 25.9 mmol/L (24.0-30.0); PCO2 Venous 59.2 mmHg (38-42); pH Blood Venous 7.33 (7.34-7.37)
--- NOTE | 2023-01-21 13:57 | NUR ---
PT ARRIVES TO THE FLOOR VIA GURNEY, C/O BACK PAIN WITH ANY MOVEMENT AND WITH COUGH. VSS, SKIN INTACT, PT MAEW, C/O NOT FEELING WELL. ENCOURAGED TO SPLINT WITH COUGHING HE CRIES OUT IN PAIN. SATS 92% ON 5L. ADMITTEDLY NOT WANTING TO TAKE DEEP BREATHS BECAUSE "IT HURTS". EDUCATION PROVIDED ON NEED TO C/DB. RECEPTIVE. PT C/O HUNGER, COLD, THIRST.
[2023-01-21 14:20] LABS: Acinetobacter baumannii DNA Not Detected copy/mL (NOT DETECT)
[2023-01-21 14:21] LABS: Enterobacter cloacae DNA Detected Bin 10^6 copy/mL (NOT DETECT); Escherichia coli DNA Not Detected copy/mL (NOT DETECT); Haemophilus influenzae DNA Not Detected copy/mL (NOT DETECT); Klebsiella aerogenes DNA Not Detected copy/mL (NOT DETECT); Klebsiella oxytoca DNA Not Detected copy/mL (NOT DETECT); Klebsiella pneumoniae DNA Detected Bin 10^4 copy/mL (NOT DETECT); Moraxella catarrhalis DNA Not Detected copy/mL (NOT DETECT); Proteus sp DNA Not Detected copy/mL (NOT DETECT); Pseudomonas aeruginosa DNA Not Detected copy/mL (NOT DETECT); Serratia marcescens DNA Not Detected copy/mL (NOT DETECT); Staphylococcus aureus DNA Not Detected copy/mL (NOT DETECT); Streptococcus agalactiae DNA Not Detected copy/mL (NOT DETECT); Streptococcus pneumoniae DNA Not Detected copy/mL (NOT DETECT); Streptococcus pyogenes DNA Not Detected copy/mL (NOT DETECT)
[2023-01-21 14:22] LABS: Adenovirus DNA Not Detected (NOT DETECT); CTX-M Resistance Gene Not Detected; Chlamydia pneumonia Not Detected (NOT DETECT); Human Coronavirus RNA Not Detected (NOT DETECT); Human Metapneumovirus RNA Not Detected (NOT DETECT); IMP Resistance Gene Not Detected; Influenza virus A RNA Not Detected (NOT DETECT); Influenza virus B RNA Not Detected (NOT DETECT); KPC Resistance Gene Not Detected; Legionella pneumophila Not Detected (NOT DETECT); Mycoplasma pneumoniae Not Detected (NOT DETECT); NDM Resistance Gene Not Detected; OXA-48-like Resistance Gene Not Detected; Parainfluenza virus RNA Not Detected (NOT DETECT); Respiratory syncytial Vir RNA Not Detected (NOT DETECT); Rhinovirus+Enterovirus RNA Not Detected (NOT DETECT); VIM Resistance Gene Not Detected
--- NOTE | 2023-01-21 15:24 | NUR ---
PT GIVEN SANDWICH PER HIS REQUEST, "SPIT IT UP" AND REQUESTED SOME JELLO. JELLO WAS GIVEN AND THEN PATIENT COMPLAINED ABOUT STOMACH CRAMPING. CALL TO LARRY FRANCOIS GIVEN. THEN JUST ROUNDED ON PATIENT AND GAVE HIM RESULTS OF CT SCAN THAT IT IS A PNEUMONIA. PT EXPRESSLY TOLD TO "NOT SEND HIM HOME UNTIL HE IS BETTER!"
--- NOTE | 2023-01-21 18:34 | NUR ---
PT CONTINUES TO COMPLAIN OF DISCOMFORT. CALL TO , NIGHT RESIDENT, GAVE UPDATE, ASKED FOR SOME PAIN MEDICATION, WAS IN REPORT. WILL RETURN CALL.
--- NOTE | 2023-01-21 18:46 | NUR ---
CHEN CONTINUES TO COMPLAIN OF NOT FEELING WELL. UPDATE TO , WILL GET HIS MEDS FOR SLEEPING TONIGHT AND AN ADDITIONAL PAIN MEDICATION. HE WAS ABLE TO TAKE IN SOME ENSURE CHOCOLATE AND SOME CLEAR SODA, HE WAS REALLY WANTING TO HAVE SOME INTAKE. PT EDUCATION ABOUT THE NEED TO TRY FLUIDS AND TRY FLUIDS SLOWLY AND FOOD IS OKAY TO SKIP UNTIL FEELING BETTER. AND SON WERE HERE FOR A VISIT. HIS BLOOD PRESSURE HAS REMAINED STABLE, JUST NOW COMING UNDER 100 ON SBP. FLUIDS INFUSING @ 125ML/HR ANTIBIOTICS INFUSING. UP TO THE BR X1. ENCOURAGED TO REST.
--- NOTE | 2023-01-21 21:33 | NUR ---
ASSUMPTION OF CARE: PATIENT IS ALERT AND ORIENTED, HOWEVER, MILDLY FORGETFUL, NEEDS EDUCATION MULTIPLE TIMES, IS HYPERFIXATED ON MEDICATIONS AND TRYING TO CONTORL THE SITUATION. EDUCATION PROVIDED FOR >30 MINUTES, PATIENT MORE AT EASE, EXTREMELY PAINFUL, BODY ACHES WITH EVERY MOVEMENT. PATIENT O2 DEMAND IS SLIGHTLY INCREASED DUE TO POSITIONING AND REFUSES TO OTHERWISE, STARTED WITH 6L VIA NC TO MAINTAIN >88%, HOWEVER, WITH SIDE LAYING POSITION AND NOT TOLERATING ELEVATION IS CURRENLTY ON 9L VIA NC TO MAINTAIN ABOVE 88%. LUNGS SOUNDS DIM T/O AND MAYBE SOME CONGESTED ON THE RIGHT SIDE, WILL CONTINUE TO MONITOR. PATIENT HAS BEEN HYPOTENSIVE AT TIMES REQUIRING FLUID BOLUSES IN THE ED. WILL CONTINUE TO MONITOR. PATIENT ON INTIITAL EKG WHICH IS REFLECTED ON [facility] TELE SHOWSA PACED WITH PROLONGED AV CONDUCTION. PATIENT MADE NPO BY THIS NURSE FOR THE TIME BEING SWALLOWS PILLS APPROPRIATELY. MILD NAUSEA, WILL EAT REAGAURDLESS AND MAKE SITUTAION WORSE. PATIENT AT 2148 STILL HYPOTENSIVE CALL TO PROVIDER. PLEASE SEE SEPAERATE NOTE.
--- NOTE | 2023-01-21 22:15 | NUR ---
TRANSFER SUMMARY: PATIENT WITH EVEN MORE INCREASED OXYGEN NEEDS AND HYPOTENSION, PATIENT WAS TRENDELENBURG POSITION WITH A BLOOD PRESSURE OF 80/60, NC AT 13 L TO MAINTAIN >88%, ICU WAS MADE AWARE AND RESIDENT VERBAL ORDER FOR TRANSFER, PATIENT MENTATION WAS ALSO STARTING TO DECREASE SLIGHLTY, OVERALL DETREIORATING. [facility] RESIDENTIAL TREATMENT STAFF AND [facility] ICU RESIDENTIAL TREATMENT STAFF FAULICTATED TRANSFER REPORT GIVEN TO INSTRUMENT TESTER MALU TIMMONS ICU. FAMILY WAS CONTACTED AND INFORMED, PATIENT MOVED TO ICU 1
[2023-01-21 23:15] LABS: Hematocrit 35.5 % (37.0-53.0); Hemoglobin 12.3 g/dL (13.5-17.5); Mean Corpuscular HGB 35.8 pg (26.0-34.0); Mean Corpuscular HGB Conc 34.6 g/dL (31.5-36.5); Mean Corpuscular Volume 103 fL (80-100); Mean Platelet Volume 10.3 fL (9.1-12.4); Platelet Count 146 K/mm3 (150-400); RDW Coefficient Variation 14.9 % (11.7-14.2); RDW Standard Deviation 56.4 fL (35.1-46.3); Red Blood Cell Count 3.44 M/mm3 (4.30-5.90); White Blood Cell Count 17.55 K/mm3 (4.00-11.30)
[2023-01-21 23:25] LABS: Base Excess Venous 2.3 mmol/L; Bicarbonate Venous 25.5 mmol/L (24.0-30.0); PCO2 Venous 54.6 mmHg (38-42); pH Blood Venous 7.32 (7.34-7.37)
[2023-01-21 23:33] LABS: Albumin, Blood 2.5 g/dL (3.4-5.0); Albumin/Globulin Ratio 0.9 (0.8-1.8); Bilirubin, Total 0.7 mg/dL (0.1-1.0); Bun/Creatinine Ratio 16.7 (12.0-20.0); Calcium, Blood 8.5 mg/dL (8.5-10.1); Creatinine, Blood 1.62 mg/dL (0.60-1.20); Globulin, Blood 2.7 g/dL (2.2-4.0); Total Protein, Blood 5.2 g/dL (6.4-8.2)
[2023-01-21 23:53] LABS: BAND PERCENT MAN 47 % (0-8); BASOPHILS PERCENT MAN 0 % (0-2); EOSINOPHILS PERCENT MAN 0 % (0-6); LYMPHOCYTES PERCENT MAN 16 % (21-46); METAMYELOCYTE PERCENT MAN 4 % (0-0); MONOCYTES ABSOLUTE MAN 0.17 K/mm3 (0.16-1.47); MONOCYTES PERCENT MAN 1 % (4-13); MYELOCYTE ABSOLUTE MAN 0.35 K/mm3 (0.00-0.00); MYELOCYTE PERCENT MAN 2 % (0-0); NEUTROPHILS ABSOLUTE MAN 13.51 K/mm3 (1.96-9.15); SEG NEUTROPHILS PERCENT MAN 30 % (41-73); TOTAL CELLS COUNTED 100
[2023-01-22] VITALS (60 sets, daily range): BP systolic 81–148; BP diastolic 44–88
[2023-01-22 02:37] LABS: Hematocrit 38.3 % (37.0-53.0); Mean Corpuscular HGB 35.2 pg (26.0-34.0); Mean Corpuscular HGB Conc 33.9 g/dL (31.5-36.5); Mean Corpuscular Volume 104 fL (80-100); Mean Platelet Volume 10.1 fL (9.1-12.4); Platelet Count 144 K/mm3 (150-400); RDW Coefficient Variation 14.9 % (11.7-14.2); RDW Standard Deviation 57.5 fL (35.1-46.3); Red Blood Cell Count 3.69 M/mm3 (4.30-5.90); White Blood Cell Count 20.16 K/mm3 (4.00-11.30)
[2023-01-22 02:54] LABS: Albumin, Blood 2.6 g/dL (3.4-5.0); Albumin/Globulin Ratio 0.9 (0.8-1.8); Bilirubin, Total 0.8 mg/dL (0.1-1.0); Calcium, Blood 8.8 mg/dL (8.5-10.1); Creatinine, Blood 1.47 mg/dL (0.60-1.20); Potassium, Blood 5.3 mmol/L (3.5-5.5); Total Protein, Blood 5.6 g/dL (6.4-8.2)
--- NOTE | 2023-01-22 02:55 | NUR ---
[facility] AT 2215 PT TRANSFERED FROM PCU TO ICU D/T HYPOTENSION. PT IS A/O X4 AND FEELING "TERRIBLE" AND FATIGUED. OXYGEN REQUIREMENTS HAVE GONE UP SINCE ARRIVAL TO ICU, NOW CURRENTLY ON 12L HIGH FLOW NC. AFEBRILE. HR 100% ATRIAL PACED, HR 60. LEVOPHED STARTED AT 2MCG/MIN AND TITRATED UP TO 6MCG/MIN; BP IMPROVING. POWERGLIDE TO RUE PATENT AND ABLE TO DRAW BLOOD; NEW PIV PLACED TO RFA FOR LEVOPHED. SEE ADMISSION ASSESSMENT FOR FULL ASSESSMENT. DR ALVAREZ AND DR JACKSON TO BED SIDE AND PROVIDED NEW ORDERS FOR LABS AND CHEST XRAY. CRITICAL LACTIC ACID REPORTED TO DR JACKSON.
[2023-01-22 03:15] LABS: BAND PERCENT MAN 37 % (0-8); BASOPHILS PERCENT MAN 0 % (0-2); EOSINOPHILS PERCENT MAN 0 % (0-6); LYMPHOCYTES ABSOLUTE MAN 1.41 K/mm3 (0.84-5.20); LYMPHOCYTES PERCENT MAN 7 % (21-46); METAMYELOCYTE PERCENT MAN 4 % (0-0); MONOCYTES PERCENT MAN 5 % (4-13); MYELOCYTE PERCENT MAN 1 % (0-0); NEUTROPHILS ABSOLUTE MAN 16.73 K/mm3 (1.96-9.15); SEG NEUTROPHILS PERCENT MAN 46 % (41-73); TOTAL CELLS COUNTED 100
--- NOTE | 2023-01-22 05:03 | NUR ---
UPDATE PT REPOSITIONED ONTO HIS RT SIDE AND SPO2 DROPPED DOWN TO 85%. ONCE REPOSITIONED ONTO HIS BACK OR LT SIDE SPO2 SLOWLY RETURNS TO NORMAL. PT EDUCATED REGARDING PNUMONIA MAINLY AFFECTING RT LUNG AND WAS ENCOURAGED TO LAY ON HIS LT SIDE OR BACK. PT AGREEABLE.
--- NOTE | 2023-01-22 06:40 | NUR ---
END OF SHIFT SUMMARY NO ACUTE EVENTS SINCE LAST NOTE. PT IS A/O X4 AND ABLE TO MAKE HIS NEEDS KNOWN; HE STATES THAT HE IS VERY TIRED AND JUST WANTS TO SLEEP; WHEN NOT STIMULATED HE WAS ABLE TO GET A FEW HOURS OF SLEEP IN. SPO2 >98% ON 15L HIGH FLOW NC; CONT TO HAVE NONPRODUCTIVE CONGESTED COUGH. HR 60'S PACED. SBP 90-110, MAP 65-80; LEVOPHED INFUSING AT 5MCG/MIN (SEE FLOWSHEET FOR TITRATIONS). TOLERATING ICE CHIPS WELL. WHEN ENCOURAGED TO URINATE HE WAS ABLE TO USE URINAL WITH 550ML OUT PUT. LR INFUSING AT 100ML/HR. WILL REPORT TO AM RN WHEN AVAILABLE.
--- NOTE | 2023-01-22 07:54 | NUR ---
CARE OF PT ASSUMED AT 0700. PT AWAKE. ALERT, AND ORIENTED X3. PT C/O HEADACHE 01/08, "MAYBE D/T COUGHING". PT HAS PRODUCTIVE, MOIST COUGH. DENIES SOB AT REST, ABLE TO SPEAK IN FULL SENT. W/O LABORED BREATHING. SATS >90% ON 12L HIGHFLOW N/C. LEVOPHED INITIALLY AT 5MCG, AND TITRATED DOWN TO 3MCG; MAP >65. DR RUBI AT BEDSIDE THIS AM. PT TEARFUL, ANXIOUS ABOUT GETTING WORSE/DYING, "TIRED OF BEING SICK".
[2023-01-22 08:27] LABS: D-Dimer, Quantitative 1.24 mg/L FEU (0.00-0.52); International Normalized Ratio 1.33; Prothrombin Time Results 13.7 Sec (9.7-11.5)
--- NOTE | 2023-01-22 09:11 | NUR ---
DR WOLF IN TO SEE PT. O2 DECREASED TO 3L, SATS >90%. PT SLEEPING. LEVOPHED TITRATED DOWN TO 2MCG, MAP >65
--- NOTE | 2023-01-22 09:48 | NUR ---
PT DESATURATED DOWN TO 80% ON 3L, O2 TITRATED BACK UP TO 10L. SATS NOW >90%. RT NOTIFIED.
--- NOTE | 2023-01-22 10:23 | NUR ---
"Spiritual Caqre Visit| Pt. request Pt. is awake and welcomes my visit. Pt.is unsettled and anxious at the beginning of our visit. Facilitate a life review and consider matters of reg and belief. Pt. displays evidenc increased trust and lower anxiety.Prayed with the Pt. and remain available to the Pt."
--- NOTE | 2023-01-22 16:41 | NUR ---
PT'S SATS IN LOW 80'S, O2 INCREASED UP TO 12L, SATS UP TO 86-87%; RT AT BEDSIDE. CPT COMPLETED BY RT. PT C/O NAUSEA, TREATED W ZOFRAN. PT PLACED ON AIRVO; DR RUBI CALLED AND UPDATED.
--- NOTE | 2023-01-22 16:48 | NUR ---
AIRVO 40L 72% FIO2. SATS 92%, PT ON PHONE SPEAKING W HIS .
--- NOTE | 2023-01-22 16:56 | NUR ---
AIRVO 55L, 65% FIO2, SATS 94%
--- NOTE | 2023-01-22 18:54 | NUR ---
PT HAS BEEN OFF LEVOPHED SINCE 1000 THIS AM, BP HAS BEEN STABLE W ALL MAPS >65. PT NOW ON AIRVO 55L/65%. SATS STABLE. CPT T/O SHIFT. POOR APPETITE. PT OOB TO CHAIR FOR ABOUT 20MIN W PHYSICAL THERAPY. CHEST XRAY REPEATED THIS EVENING, SEE REPORT. PT'S AT BEDSIDE.
[2023-01-23] VITALS (13 sets, daily range): BP systolic 116–154; BP diastolic 65–96
[2023-01-23 05:03] LABS: Hemoglobin 11.8 g/dL (13.5-17.5); Mean Corpuscular HGB 35.2 pg (26.0-34.0); Mean Corpuscular HGB Conc 34.7 g/dL (31.5-36.5); Mean Corpuscular Volume 102 fL (80-100); Mean Platelet Volume 10.6 fL (9.1-12.4); Platelet Count 123 K/mm3 (150-400); RDW Coefficient Variation 14.7 % (11.7-14.2); RDW Standard Deviation 55.8 fL (35.1-46.3); Red Blood Cell Count 3.35 M/mm3 (4.30-5.90)
[2023-01-23 05:31] LABS: BAND PERCENT MAN 40 % (0-8); BASOPHILS PERCENT MAN 0 % (0-2); EOSINOPHILS PERCENT MAN 0 % (0-6); LYMPHOCYTES ABSOLUTE MAN 0.46 K/mm3 (0.84-5.20); LYMPHOCYTES PERCENT MAN 3 % (21-46); METAMYELOCYTE ABSOLUTE MAN 0.15 K/mm3 (0.00-0.00); METAMYELOCYTE PERCENT MAN 1 % (0-0); MONOCYTES ABSOLUTE MAN 0.62 K/mm3 (0.16-1.47); MONOCYTES PERCENT MAN 4 % (4-13); NEUTROPHILS ABSOLUTE MAN 14.26 K/mm3 (1.96-9.15); SEG NEUTROPHILS PERCENT MAN 52 % (41-73); TOTAL CELLS COUNTED 100
[2023-01-23 05:33] LABS: Bun/Creatinine Ratio 22.1 (12.0-20.0); Calcium, Blood 9.1 mg/dL (8.5-10.1); Creatinine, Blood 0.95 mg/dL (0.60-1.20); Potassium, Blood 4.5 mmol/L (3.5-5.5)
--- NOTE | 2023-01-23 05:56 | NUR ---
SHIFT SUMMERY PT IS ALERT AND ORIENTED X4 W/GENERALIZED W/GENERALIZED WEAKNESS. HE HAS BEEN SR ON THE ASSOCIATE PROFESSOR OF CHEMISTRY, BP WNL.PT IS ON AIRVO AT 55LPM 65%FIO2. HE DESATS W/ACTIVITY AND DOES NOT TOLERATE LYING ON HIS RIGHT SIDE. HE IS CONTINENT OF BOWEL AND BLADDER, AFEBRILE. PT IS NOT IGNITION RISK.
--- NOTE | 2023-01-23 16:30 | NUR ---
SUMMARY PT A/O X4. PT HAS BEEN LETHARGIC TODAY, POOR APPETITE. WORKED WITH PHYSICAL THERAPY AND WAS ABLE TO SIT AT SIDE OF BED AND MARCH IN PLACE. ON AIRVO 50L 60% AND DID NOT DESAT WITH ACTIVITY. PT IS ABLE TO TURN SELF SIDE TO SIDE IN BED AND CAN BOOST HIMSELF UP IN BED. HAVING LARGE AMT OF STONE/PINK SPUTUM. NO SOURCE OF IGNITION NOTED TODAY, EDUCATED ABOUT NOT SMOKING, VAPING, OR OPEN FLAME IN HOSPITAL. TRANSFERING TO PCU 2, NO SIGN OF DISTRESS PT LEAVES THE UNIT.
--- NOTE | 2023-01-23 16:50 | NUR ---
pt arrived to PCU 2; alert, oriented and cooperative with care. No anxiety verbalized nor noted. Rut is at the bedside. Pt is coughing up large amounts of ramirez pink tinged sputum. He is asking for ice chips, ice water and if he can shave tomorrow. Wearing Airvo at 50 l/min and 63% O2 delivery. Spo2 91% while sitting up in bed. Able to carry on conversations without any observable difficult. Appears to be weak and tired. Normal sinus rhythm noted by telemetry. 137/84 (99) blood pressure.
--- NOTE | 2023-01-23 17:25 | NUR ---
SPO2 81% while sleeping on AirVo settings, as last documented. RR 20/min, even and unlabored while lying on his right side, HOB elevated 35 degrees. Oxygen delivery increased gradually to improve spo2. He is now on 95% Fio2 and spo2 has improved to 86%. Heart rate 79 bpm, sinus rhythm with occasional PVC.
--- NOTE | 2023-01-23 17:31 | NUR ---
Repositioned in the bed pt awakened and coughed up redtinged sputum. SpO2 improved to 93%, while on 95% fio2 50l/min flow on AirVo.
[2023-01-24 00:30] VITALS: BP 104/79
[2023-01-24 04:34] VITALS: BP 125/80
[2023-01-24 04:37] LABS: Hematocrit 32.4 % (37.0-53.0); Hemoglobin 11.4 g/dL (13.5-17.5); Mean Corpuscular HGB 35.4 pg (26.0-34.0); Mean Corpuscular HGB Conc 35.2 g/dL (31.5-36.5); Mean Corpuscular Volume 101 fL (80-100); Mean Platelet Volume 10.7 fL (9.1-12.4); Platelet Count 128 K/mm3 (150-400); RDW Coefficient Variation 14.4 % (11.7-14.2); RDW Standard Deviation 53.8 fL (35.1-46.3); Red Blood Cell Count 3.22 M/mm3 (4.30-5.90); White Blood Cell Count 15.08 K/mm3 (4.00-11.30)
[2023-01-24 04:59] LABS: Albumin, Blood 2.2 g/dL (3.4-5.0); Albumin/Globulin Ratio 0.7 (0.8-1.8); Bilirubin, Total 1.1 mg/dL (0.1-1.0); Bun/Creatinine Ratio 25.1 (12.0-20.0); Calcium, Blood 9.1 mg/dL (8.5-10.1); Creatinine, Blood 0.84 mg/dL (0.60-1.20); Globulin, Blood 3.3 g/dL (2.2-4.0); Potassium, Blood 4.5 mmol/L (3.5-5.5); Total Protein, Blood 5.5 g/dL (6.4-8.2)
--- NOTE | 2023-01-24 05:14 | NUR ---
SHIFT SUMMARY A/OX4, IND WITH URINAL AT BEDSIDE. TELE SR WITH VENT. KETAN 70-80S, DENIES CHEST PAIN/PRESSURE. SPO2 >92% ON 50L 67% FIO2. C/O LOWER BACK PAIN, MEDICATED PER EMAR. PG TO MARGARITA THAT DRAWS. VSS, NO ACUTE CHANGES AT THIS TIME. BED IN LOWEST POSITION WITH CALL LIGHT IN REACH. WILL CONTINUE TO MONITOR AND REPORT TO ONCOMING RN. FIRE AND IGNITION RISK ASSESSED, NO RISK IDENTIFIED AT THIS TIME. PT EDUCATED ON FIRE SAFETY WHILE ON HIFLOW O2.
[2023-01-24 05:28] LABS: BAND PERCENT MAN 15 % (0-8); BASOPHILS PERCENT MAN 0 % (0-2); EOSINOPHILS PERCENT MAN 0 % (0-6); LYMPHOCYTES ABSOLUTE MAN 0.45 K/mm3 (0.84-5.20); LYMPHOCYTES PERCENT MAN 3 % (21-46); MONOCYTES ABSOLUTE MAN 0.75 K/mm3 (0.16-1.47); MONOCYTES PERCENT MAN 5 % (4-13); NEUTROPHILS ABSOLUTE MAN 13.87 K/mm3 (1.96-9.15); SEG NEUTROPHILS PERCENT MAN 77 % (41-73); TOTAL CELLS COUNTED 100
--- NOTE | 2023-01-24 07:13 | NUR ---
ASSUMED CARE: PT RESTING IN BED AT THIS TIME. 45L AND 66% FIO2 ON AIRVO. NSR WITH PVCS ON TELE IN 90S. RESIDENT AT BEDSIDE AT THIS TIME WITH RT. NO ACUTE NEEDS OR CONCERNS.
[2023-01-24 08:01] VITALS: BP 133/94
[2023-01-24 11:26] VITALS: BP 137/92
[2023-01-24 15:24] VITALS: BP 127/78
--- NOTE | 2023-01-24 17:39 | NUR ---
SHIFT SUMMARY: PT HAS BEEN ON AIRVO T/O DAY, 46L AND 66% FIO2. FIO2 TITRATED FOR NEED THROUGHOUT DAY. PT HAS BEEN NOTED TO DESATURATE INTO 80S WHEN AIRVO IS REMOVED BUT RECOVERS QUICKLY. NSR ON TELE WITH SOME PVCS. IV ABX CHANGED TO LEVAQUIN THIS SHIFT. MEDICATED X1 FOR ELEVATED TEMPERATURE. IGNITION RISK: NO LIGHTERS, MATCHES OR CIGARRETTES NOTED IN ROOM OR AT BEDSIDE THROUGHOUT SHIFT
[2023-01-24 19:25] VITALS: BP 116/61
[2023-01-25] VITALS (19 sets, daily range): BP systolic 93–172; BP diastolic 57–121
--- NOTE | 2023-01-25 04:21 | NUR ---
SHIFT SUMMARY A/OX4, IND WITH URINAL AT BEDSIDE. TELE SR WITH PVC'S, DENIES CHEST PAIN/PRESSURE. SPO2 >92% ON 40L 63% FIO2. C/O LOWER BACK PAIN, MEDICATED PER EMAR. PG TO MARGARITA THAT DRAWS. VSS, NO ACUTE CHANGES AT THIS TIME. BED IN LOWEST POSITION WITH CALL LIGHT IN REACH. WILL CONTINUE TO MONITOR AND REPORT TO ONCOMING RN. FIRE AND IGNITION RISK ASSESSED, NO RISK IDENTIFIED AT THIS TIME. PT EDUCATED ON FIRE SAFETY WHILE ON HIFLOW O2.
--- NOTE | 2023-01-25 07:15 | NUR ---
ASSUMED CARE: PT SITTING UP IN BED WITH YANKER IN HAND. COUGHING UP BLOOD TINGED SPUTUM. ON AIRVO AT 40L AND 60% FIO2. NSR WITH PVCS ON TELE IN THE 80S. STATES HE FEELS WARN OUT. NO FURTHER NEEDS AT THIS TIME.
[2023-01-25 07:58] LABS: BASOPHILS ABSOLUTE AUTO 0.04 K/mm3 (0.00-0.23); BASOPHILS PERCENT AUTO 0 % (0-2); EOSINOPHILS ABSOLUTE AUTO 0.02 K/mm3 (0.00-0.68); EOSINOPHILS PERCENT AUTO 0 % (0-6); Hematocrit 33.1 % (37.0-53.0); Hemoglobin 11.7 g/dL (13.5-17.5); IMMATURE GRAN ABSOLUTE AUTO 0.17 K/mm3 (0.00-0.10); IMMATURE GRAN PERCENT AUTO 1 % (0-1); LYMPHOCYTES ABSOLUTE AUTO 0.84 K/mm3 (0.84-5.20); LYMPHOCYTES PERCENT AUTO 6 % (21-46); MONOCYTES ABSOLUTE AUTO 1.06 K/mm3 (0.16-1.47); MONOCYTES PERCENT AUTO 8 % (4-13); Mean Corpuscular HGB 35.1 pg (26.0-34.0); Mean Corpuscular HGB Conc 35.3 g/dL (31.5-36.5); Mean Corpuscular Volume 99 fL (80-100); Mean Platelet Volume 10.5 fL (9.1-12.4); NEUTROPHILS ABSOLUTE AUTO 11.43 K/mm3 (1.96-9.15); NEUTROPHILS PERCENT AUTO 84 % (41-73); Platelet Count 152 K/mm3 (150-400); RDW Coefficient Variation 14.6 % (11.7-14.2); RDW Standard Deviation 53.5 fL (35.1-46.3); Red Blood Cell Count 3.33 M/mm3 (4.30-5.90); White Blood Cell Count 13.56 K/mm3 (4.00-11.30)
[2023-01-25 08:18] LABS: Albumin/Globulin Ratio 0.6 (0.8-1.8); Bilirubin, Total 1.7 mg/dL (0.1-1.0); Calcium, Blood 8.9 mg/dL (8.5-10.1); Creatinine, Blood 0.84 mg/dL (0.60-1.20); Globulin, Blood 3.5 g/dL (2.2-4.0); Potassium, Blood 4.2 mmol/L (3.5-5.5); Total Protein, Blood 5.5 g/dL (6.4-8.2)
--- NOTE | 2023-01-25 09:41 | NUR ---
PT CONTACTED AT 0940 TO UPDATE THAT THE PT IS CURRENTLY IN [facility]. PT WAS ALREAY TRAVELING FROM [place] TO [facility] CALL WAS MADE. PT INFORMED THAT MEDICAL STAFF IS IN PT ROOM AND THAT THE PT IS STILL CURRENTLY IN THE PCU.
--- NOTE | 2023-01-25 10:10 | NUR ---
TELE CALLED STAFF TO BEDSIDE DUE TO PT SHOWING VTACH. HR IN 160S-180S. PT STATED THAT HE FELT LIGHT HEADED. ATTEMPTED VAGAL MANEUVERS WITH SYRINGE WHILE STAFF WAS GETTING EKG MACHINE AND CRASH CART. DR QUARLES CAME TO BEDSIDE AND CALLED CARDIOLOGY TO ENSURE THAT CARDIOVERSION COULD OCCUR WITH AICD IN PLACE. DR QUARLES ALSO CALLED DR TELLES TO BEDSIDE. MEANWHILE, PT WAS PREPPED FOR CARDIOVERSION WITH 1MG ATIVAN, 50MCG FENTANYL AND 1 MG VERSED. PT WAS CARDIOVERTED WITH 120 RAJAN. RHYTHM RETURNED TO NSR WITH PVCS. EKG TAKEN AFTERWARD. DRS INSTRUCTED TO KEEP LEVAQUIN ORDERED DUE TO BACTERIAL RESISTANCE AND QTC ON LATEST EKG SHOWING 413. 150MG AMIODORONE BOLUS GIVEN PER CARDIOLOGY RECOMMENDATION DURING RAPID. PT CURRENTLY RESTING QUIETLY 93 % ON AIRVO, 40L AND 90% FIO2. STAFF CALLED PT'S TO UPDATE HER AND SHE STATED SHE WOULD BE HERE IN 20 MINUTES.
--- NOTE | 2023-01-25 13:00 | NUR ---
[facility] STAFF AT BEDSIDE INTERROGATING PACEMAKER. STAFF MEMBER STATED SHE WOULD DISCUSS FINDINGS WITH DR JETT
--- NOTE | 2023-01-25 13:55 | NUR ---
Spiritual Care Visit. At the time of my visit the Pt. is somnolent and not responsive. Pts. spouse is present and welcomes my visit. Facilitate a life review. Listen with empathy and interest. Spouse verbalized gratitude for the spiritual care visit. Will remain available to the Pt. and spouse.
--- NOTE | 2023-01-25 16:00 | NUR ---
AT 1535 HEART MONITOR WAS ALARMING. RN CAME TO ROOM AND PT'S HR WAS VTACH IN 160S. TELE CALLED AT SAME TIME. HEEL FINISHER AT BEDSIDE AND RAPID RESPONSE CALLED. TEAM CAME TO BEDSIDE AND PT'S ICD WAS FIRING. [facility]ENTER WAS CALLED TO HAVE DR JETT COME TO BEDSIDE WITH DEVICE REP TO INTERROGATE ICD AND CHANGE SETTINGS. PT WAS GIVEN FENTANYL AND VERSED FOR SEDATION. ICD WAS OVERDRIVEN BY INTERROGATOR AND SHOCK DELIVERED AT 1548. 100 MG OF LIDOCAINE GIVEN PER DR JETT'S INSTRUCTION. PT WAS THEN ADMINSITERED FENTANYL AND VERSED AGAIN AND SECOND SHOCK WAS DELIVERED AFTER OVERDRIVE BY INTERROGATOR. AMIODORONE GTT STARTED AND PT WAS TRANSFERRED TO ICU 7. REPORT GIVEN TO IAIN ARTEAGA. PT'S WAS WITH [employer] EXECUTIVE DURING EVENT AND IS NOW AT BEDSIDE.
--- NOTE | 2023-01-25 16:19 | NUR ---
"Spiritual Care | Rapid Response When this outbound sales specialist arrived he was directed tot he spouse who was sitting at the end of the hallway. Spouse displayed evidence of being strong and understanding while awaiting the rapid team's response. Nurse Tracy and several others brought updates to the spouse. After Pt. was moved into ICU7, I gave pastoral support to the Pt. who display evidence of reasonable anxiety. Prayed with with Pt. and spouse. Family verbalized gratitude for the spiritual care visit and welcomed this outbound sales specialist to return."
--- NOTE | 2023-01-25 16:38 | NUR ---
TRANSFER PT ARRIVED FROM PCU, AWAKE BUT GROGGY. HR SINUS WITH FREQUENT PVC. REPORT RECEIVED FROM IAIN LIAO. PT ON ON REBREATHER ON ARRIVAL THEN SWITCHED TO AIRVO BY RT ONCE HE WAS MOVED TO ICU BED. PT AT 60L AND 88% TO START, BUT TITRATED DOWN TO 60L AND 65% WITH SPO2 94%. PT HAS VERY WET, CONGESTED COUGH. PT'S AT THE BEDSIDE. PT IS VERY FEARFUL AND FRUSTRATED. REASSURANCES PROVIDED. AT 1628 PT WENT BACK INTO [facility], BUT IS ICD SHOCKED HIM OUT OF THE RHYTHM WITHIN [address] TELLES CAME AND SAW HIM AT THE BEDSIDE. AMIODARONE INFUSING. CONTINUING TO MONITOR.
--- NOTE | 2023-01-25 17:21 | NUR ---
A rapid response was called in pt's room, as his ICD began shocking him, but it was not working correctly, as the shocks seemed to be delivered out of sync with his rhythm. His pulse was increasing however, and special education tutor was called to the room by brake lining finisher and hospitalist. Pt was sedated, and the doctor was able to use his device to appropriately shock pt. Pt's Nathalie was seated outside the room during the event, and was visibly shaken. Tax Intern and this Palliative RN remained with her, and she was receptive to the support. Pt was transferred to ICU, and Nathalie is at bedside. Pt does not remember the event, and Nathalie states appreciation to all staff for their assistance to both her and the patient. The pt has made it clear he would like to remain a full code. Palliative Care will remain available.
--- NOTE | 2023-01-25 17:50 | NUR ---
SHIFT SUMMARY PT HAS NOT HAD ANYMORE EPISODES OF VTACH SINCE HIS LAST ONE RIGHT AFTER HE WAS TRANSFERRED TO ICU. HE REMAINS SR WITH OCCASIONAL PVC. BP STABLE. HE HAS BEEN RESTING WITH HIS EYES CLOSED. WHEN AWAKE HE IS VERY FEARFUL OF DYING BECAUSE OF EVERYTHING THAT HAS HAPPENED TODAY. TIME SPENT REASSURING PT AND EXPLAINING CARE THAT IS BEING PROVIDED. PT'S REMAINS AT BEDSIDE WITH HIM. AMIODARONE INFUSING. ZOLL REMAINS AT THE BEDSIDE AND PACER PADS ON PT'S CHEST. HOURLY ROUNDING DONE REGARDING IGNITION RISK.
[2023-01-26] VITALS (50 sets, daily range): BP systolic 102–160; BP diastolic 69–114
[2023-01-26 00:49] LABS: BASOPHILS ABSOLUTE AUTO 0.04 K/mm3 (0.00-0.23); BASOPHILS PERCENT AUTO 0 % (0-2); EOSINOPHILS ABSOLUTE AUTO 0.01 K/mm3 (0.00-0.68); EOSINOPHILS PERCENT AUTO 0 % (0-6); Hematocrit 34.3 % (37.0-53.0); Hemoglobin 12.2 g/dL (13.5-17.5); IMMATURE GRAN PERCENT AUTO 4 % (0-1); LYMPHOCYTES ABSOLUTE AUTO 0.66 K/mm3 (0.84-5.20); LYMPHOCYTES PERCENT AUTO 6 % (21-46); MONOCYTES ABSOLUTE AUTO 1.44 K/mm3 (0.16-1.47); MONOCYTES PERCENT AUTO 12 % (4-13); Mean Corpuscular HGB 34.6 pg (26.0-34.0); Mean Corpuscular HGB Conc 35.6 g/dL (31.5-36.5); Mean Corpuscular Volume 97 fL (80-100); Mean Platelet Volume 10.5 fL (9.1-12.4); NEUTROPHILS PERCENT AUTO 77 % (41-73); Platelet Count 142 K/mm3 (150-400); RDW Coefficient Variation 14.3 % (11.7-14.2); RDW Standard Deviation 51.1 fL (35.1-46.3); Red Blood Cell Count 3.53 M/mm3 (4.30-5.90); White Blood Cell Count 11.65 K/mm3 (4.00-11.30)
[2023-01-26 01:07] LABS: Albumin/Globulin Ratio 0.6 (0.8-1.8); Bilirubin, Total 1.9 mg/dL (0.1-1.0); Bun/Creatinine Ratio 27.8 (12.0-20.0); Calcium, Blood 8.6 mg/dL (8.5-10.1); Creatinine, Blood 0.76 mg/dL (0.60-1.20); Globulin, Blood 3.6 g/dL (2.2-4.0); Magnesium, Blood 1.7 mg/dL (1.6-2.4); Potassium, Blood 3.6 mmol/L (3.5-5.5); Total Protein, Blood 5.6 g/dL (6.4-8.2)
--- NOTE | 2023-01-26 01:09 | NUR ---
PATIENT WENT INTO VTACH THREE TIMES. CONVERTED TO NSR WITH AICD DEFIBRILLATION. PROVIDER NOTIFIED AND LIDOCAINE GTT ORDERED. PATIENT'S NOTIFIED.
--- NOTE | 2023-01-26 06:46 | NUR ---
PATIENT AOX4. SR WITH FREQUENT PVC'S. 3 EPISODES OF VTACH OVERNIGHT, REQUIRING 6 SHOCKS FROM AICD. AMIODARONE AND LIDOCAINE GTT INFUSING. AIRVO WEANED TO 40L 70%. TOLERATING FULL LIQUID DIET.
--- NOTE | 2023-01-26 06:53 | NUR ---
PATIENT EDUCATED ON IGNITION SOURCES AND RISKS.
--- NOTE | 2023-01-26 09:21 | NUR ---
Assumed care. Bedside report received from nightshift RN. Pt resting in bed, A&O, on airvo 40 LPM, 70% Fi02. Amiodarone infusing at 0.5 mg/min, Lidocaine infusing at 1 mg/min. Zoll pads in place with Zoll at bedside. Pt denied needs at time of report. Will continue to monitor.
--- NOTE | 2023-01-26 12:26 | NUR ---
Met with pt and his Nathalie at bedside this am. Nathalie states she had barely gotten home from the hospital when she received a phone call that pt's ICD had shocked him "several more times in a row". However, it fortunately had returned to a normal sinus rhythm by the time they called. Pt states he doesn't remember much of yesterday, and asked if we had met previously. His told him we met yesterday, and pt c/o feeling "rummy", not remembering things he usually knows. Reassurance provided that he was given fentanyl and versed yesterday, and he will return to baseline. Pt does not appear as distressed today as he looked yesterday. Palliative care will continue to make supportive visits as needed.
[2023-01-26 13:02] LABS: Free Thyroxine 1.85 ng/dL (0.70-1.60); Phosphorus, Blood 1.5 mg/dL (2.5-4.9); Thyroid Stimulating Hormone 2.48 uIU/mL (0.360-4.800); Triiodothyronine, Free 0.64 pg/mL (2.18-3.98)
--- NOTE | 2023-01-26 18:58 | NUR ---
Shift summary. Pt rested in bed throughout shift. No runs of Vtach this shift. PT alert and oriented, on airvo at 40 L/min, 60% Fi02. NS tko. No acute events this shift, see chart for further details. Report given to nightshift RN.
[2023-01-27] VITALS (39 sets, daily range): BP systolic 96–147; BP diastolic 62–124
[2023-01-27 04:32] LABS: BASOPHILS ABSOLUTE AUTO 0.04 K/mm3 (0.00-0.23); BASOPHILS PERCENT AUTO 0 % (0-2); EOSINOPHILS ABSOLUTE AUTO 0.01 K/mm3 (0.00-0.68); EOSINOPHILS PERCENT AUTO 0 % (0-6); Hematocrit 33.6 % (37.0-53.0); Hemoglobin 12.2 g/dL (13.5-17.5); Mean Corpuscular HGB Conc 36.3 g/dL (31.5-36.5); Mean Corpuscular Volume 96 fL (80-100); Mean Platelet Volume 10.7 fL (9.1-12.4); Platelet Count 174 K/mm3 (150-400); RDW Coefficient Variation 14.3 % (11.7-14.2); RDW Standard Deviation 50.2 fL (35.1-46.3); Red Blood Cell Count 3.49 M/mm3 (4.30-5.90); White Blood Cell Count 12.79 K/mm3 (4.00-11.30)
[2023-01-27 04:33] LABS: IMMATURE GRAN ABSOLUTE AUTO 0.62 K/mm3 (0.00-0.10); IMMATURE GRAN PERCENT AUTO 5 % (0-1); LYMPHOCYTES ABSOLUTE AUTO 1.05 K/mm3 (0.84-5.20); LYMPHOCYTES PERCENT AUTO 8 % (21-46); MONOCYTES ABSOLUTE AUTO 1.34 K/mm3 (0.16-1.47); MONOCYTES PERCENT AUTO 11 % (4-13); NEUTROPHILS ABSOLUTE AUTO 9.73 K/mm3 (1.96-9.15); NEUTROPHILS PERCENT AUTO 76 % (41-73)
[2023-01-27 04:50] LABS: Albumin, Blood 1.8 g/dL (3.4-5.0); Albumin/Globulin Ratio 0.5 (0.8-1.8); Bilirubin, Total 1.5 mg/dL (0.1-1.0); Bun/Creatinine Ratio 23.9 (12.0-20.0); Calcium, Blood 8.3 mg/dL (8.5-10.1); Creatinine, Blood 0.84 mg/dL (0.60-1.20); Globulin, Blood 3.3 g/dL (2.2-4.0); Potassium, Blood 3.9 mmol/L (3.5-5.5); Total Protein, Blood 5.1 g/dL (6.4-8.2)
--- NOTE | 2023-01-27 05:59 | NUR ---
PATIENT WENT INTO VTACH DURING SHIFT, CONVERTED OUT AFTER SHOCK FROM AICD. PO AMIODARONE GIVEN AND DR JETT TALKED WITH PATIENT AND PATIENT'S ABOUT CURRENT ILLNESS. PULMONOLOGY CONSULTED AND DR MISTRY EVALUATED PATIENT. PATIENT REMAINED IN NSR FOR THE REMAINDER OF THE SHIFT, WITH FREQUENT PVC'S. AIRVO 40L 70%. HOURLY ROUNDING FOR IGNITION SOURCES COMPLETED, PATIENT EDUCATED ON RISKS.
--- NOTE | 2023-01-27 07:15 | NUR ---
Assumed care at 0700, bedside report received from nightshift RN. Pt sleeping at time of report. On Airvo 40L/min, 70% Fi02. NS tko. No acute needs, will continue to monitor.
[2023-01-27 07:49] LABS: Base Excess Venous 9.9 mmol/L; Bicarbonate Venous 32.3 mmol/L (24.0-30.0); PCO2 Venous 43.1 mmHg (38-42)
[2023-01-27 13:47] LABS: IMMATURE RETIC FRACTION 21.4 % (2.3-16.0); RETIC HGB EQUIVALENT 30.4 pg (28.20-36.60); RETICULOCYTE ABSOLUTE 0.0583 M/mm3 (0.0200-0.1100); RETICULOCYTE COUNT PERCENT 1.7 % (0.50-2.50)
--- NOTE | 2023-01-27 18:00 | NUR ---
Shift summary. Pt rested in bed throughout shift. No acute changes this shift. Pt off Airvo, on high flow NC at 6 L/min. Pt still anxious, orders obtained for PRN anxiety mediation BID, see EMAR. Hourly rounding for fire risk done, nothing noted.
[2023-01-28] VITALS (18 sets, daily range): BP systolic 91–155; BP diastolic 59–92
[2023-01-28 04:17] LABS: Hematocrit 34.3 % (37.0-53.0); Hemoglobin 12.1 g/dL (13.5-17.5); Mean Corpuscular HGB 34.8 pg (26.0-34.0); Mean Corpuscular HGB Conc 35.3 g/dL (31.5-36.5); Mean Corpuscular Volume 99 fL (80-100); Mean Platelet Volume 10.7 fL (9.1-12.4); Platelet Count 203 K/mm3 (150-400); RDW Coefficient Variation 14.5 % (11.7-14.2); RDW Standard Deviation 52.7 fL (35.1-46.3); Red Blood Cell Count 3.48 M/mm3 (4.30-5.90); White Blood Cell Count 14.89 K/mm3 (4.00-11.30)
[2023-01-28 04:36] LABS: Albumin, Blood 1.8 g/dL (3.4-5.0); Albumin/Globulin Ratio 0.6 (0.8-1.8); Bilirubin, Total 1.1 mg/dL (0.1-1.0); Bun/Creatinine Ratio 23.8 (12.0-20.0); Calcium, Blood 8.3 mg/dL (8.5-10.1); Creatinine, Blood 0.92 mg/dL (0.60-1.20); Globulin, Blood 3.2 g/dL (2.2-4.0); Magnesium, Blood 1.9 mg/dL (1.6-2.4); Phosphorus, Blood 1.9 mg/dL (2.5-4.9); Potassium, Blood 4.3 mmol/L (3.5-5.5)
[2023-01-28 05:08] LABS: BAND PERCENT MAN 4 % (0-8); BASOPHILS PERCENT MAN 0 % (0-2); EOSINOPHILS PERCENT MAN 0 % (0-6); LYMPHOCYTES % ATYPICAL MANUAL 3 % (0-0); LYMPHOCYTES ABSOLUTE MAN 1.48 K/mm3 (0.84-5.20); LYMPHOCYTES PERCENT MAN 7 % (21-46); METAMYELOCYTE ABSOLUTE MAN 0.14 K/mm3 (0.00-0.00); METAMYELOCYTE PERCENT MAN 1 % (0-0); MONOCYTES ABSOLUTE MAN 0.44 K/mm3 (0.16-1.47); MONOCYTES PERCENT MAN 3 % (4-13); SEG NEUTROPHILS PERCENT MAN 82 % (41-73); TOTAL CELLS COUNTED 100
--- NOTE | 2023-01-28 06:34 | NUR ---
PATIENT IS AOX4, FOLLOWS COMMANDS AND MOVES ALL EXTREMITIES. PATIENT REPORTING HIGH LEVEL OF ANXIETY. PRN ATIVAN GIVEN. SR WITH FREQUENT PVC'S. BP STABLE. PATIENT WAS ON 8L NC WHEN AWAKE, AND BACK ON AIRVO 50L 90% WHEN SLEEPING. PATIENT REPORTING CONSTIPATION. PRN MILK OF MAG GIVEN, NO BM AT THIS TIME. HOURLY ROUNDING COMPLETED FOR SOURCES OF IGNITION.
--- NOTE | 2023-01-28 07:11 | NUR ---
Assumed care. Bedside report received from nightshift RN. Pt sleeping during report, on Airvo, 50 L/min, 90% Fi02. VS stable, no acute needs. Will continue to monitor.
--- NOTE | 2023-01-28 19:00 | NUR ---
ASSUMPTION OF CARE PT SPEAKING WITH AND SON, RESTING COMFORTABLY. NO COMPLAINTS OF PAIN. A&OX4, CALM AND COOPERATIVE. CURRENTLY ON 8L HIFLO NC, SATTING WELL. COARSE CRACKLES IN LOWER LOBES ESPECIALLY ON R SIDE . CURRENTLY IN NSR WITH OCCASIONAL PVCS. BPS ARE STABLE. GOAL IS TO GET GOOD SLEEP TONIGHT.
--- NOTE | 2023-01-28 19:15 | NUR ---
Shift summary. Pt continuing to make small improvements this shift. No runs of vtach noted. Pt up to chair for breakfast and dinner, able to ambulate w/one person standby assist and walker/gait belt. Pt on at 5 L/min via high flow NC. NS TKO. No acute events this shift, VS stable. See chart for further details. Will report off to nightshift RN.
--- NOTE | 2023-01-28 23:00 | NUR ---
UPDATE PT CONSISTENTLY DESATTING INTO MID 80S. RT CALLED TO SWITCH PT TO AERVO. CURRENTLY 50LPM 62% FIO2. SATS NOW MAINTAINING IN MID 90S
[2023-01-29] VITALS: BP 108/71
[2023-01-29 02:00] VITALS: BP 113/80
[2023-01-29 04:00] VITALS: BP 112/74
[2023-01-29 04:01] LABS: Hematocrit 33.1 % (37.0-53.0); Hemoglobin 11.9 g/dL (13.5-17.5); Mean Corpuscular HGB 35.1 pg (26.0-34.0); Mean Corpuscular Volume 98 fL (80-100); Mean Platelet Volume 10.8 fL (9.1-12.4); Platelet Count 241 K/mm3 (150-400); RDW Coefficient Variation 14.4 % (11.7-14.2); RDW Standard Deviation 51.6 fL (35.1-46.3); Red Blood Cell Count 3.39 M/mm3 (4.30-5.90)
[2023-01-29 04:19] LABS: Bun/Creatinine Ratio 23.9 (12.0-20.0); Calcium, Blood 8.4 mg/dL (8.5-10.1); Creatinine, Blood 0.96 mg/dL (0.60-1.20); Potassium, Blood 4.7 mmol/L (3.5-5.5)
[2023-01-29 04:20] LABS: BAND PERCENT MAN 6 % (0-8); BASOPHILS PERCENT MAN 0 % (0-2); EOSINOPHILS PERCENT MAN 0 % (0-6); LYMPHOCYTES ABSOLUTE MAN 1.03 K/mm3 (0.84-5.20); LYMPHOCYTES PERCENT MAN 6 % (21-46); MONOCYTES ABSOLUTE MAN 0.51 K/mm3 (0.16-1.47); MONOCYTES PERCENT MAN 3 % (4-13); MYELOCYTE ABSOLUTE MAN 0.17 K/mm3 (0.00-0.00); MYELOCYTE PERCENT MAN 1 % (0-0); NEUTROPHILS ABSOLUTE MAN 15.57 K/mm3 (1.96-9.15); SEG NEUTROPHILS PERCENT MAN 84 % (41-73); TOTAL CELLS COUNTED 100
--- NOTE | 2023-01-29 05:38 | NUR ---
SHIFT SUMMARY SWITCHED FROM HIGHFLO NC TO AERVO 50 LPM AT 67% FIO2 WHILE SLEEPING. NO CHANGE TO NEURO STATUS. BP AND HEART RATE STABLE WITH AV BLOCK. PT DID BECOME INCREASINGLY AXIOUS OVERNIGHT, BUT THIS WAS GREATLY IMPROVED WITH .25 ATIVAN. PT COMPLAINS OF CONSTIPATION, DID ADD MIRALAX TO MAR FOR PT TO HAVE IN AM. NO COMPLAINTS OF PAIN THIS SHIFT. PT WAS EDUCATED ON IGNITION RISKS AND VERBALIZED UNDERSTANDING.
[2023-01-29 06:00] VITALS: BP 108/69
--- NOTE | 2023-01-29 16:26 | NUR ---
Met with pt and at bedside in ICU this morning. Pt reports feeling tired, states he is currently only prescribed 100mg po nightly of trazodone, when his usual dose is 200mg. He states that even while at home, he doesn't get good rest without the 200mg dose. Spoke to Dr. Fenton regarding this, he gave v/o for 200mg Seroquel po at bedtime.
--- NOTE | 2023-01-29 18:53 | NUR ---
Shift summary. Pt continues to show improvement, up to chair for all meals this shift, able to work with PT this afternoon. Pt on high flow NC, titrated down to 3 L/min during shift, currently at 6 L/min d/t pt exerting himself. Dr. Fenton at bedside this afternoon for pacemaker interrogation and adjustment, stated he wants to be consulted on all medication adjustments for patient from today on. Pt evening dose of Trazodone increased to 200mg home dose in order to help with sleep quality. Pharmacy recommends watching pt Q-T interval carefully after first dose. No acute events this shift, see chart for further details. Will report off to nightshift RN.
--- NOTE | 2023-01-29 19:00 | NUR ---
ASSUMPTION OF CARE UPON ASSESSMENT PT REPORTS HE IS VERY TIRED FROM WORKING WITH PT TODAY AND HE IS VERY HAPPY TO HAVE HAD A BOWEL MOVEMENT. ON HIFLO NC AT 5LPM. HR IN 60S, BPS STABLE. LUNG SOUNDS COURSE BUT SOUND BETTER THAN YESTERDAY. NO REPORTS OF PAIN. A&OX4.
[2023-01-30] VITALS (7 sets, daily range): BP systolic 103–129; BP diastolic 52–96
--- NOTE | 2023-01-30 02:05 | NUR ---
ARRIVAL TO PCU NOTE RECEIVED REPORT FROM GUITAR REPAIRER BLAYNE FARRIS, PT SHORTLY ARRIVED TO PCU 3 ~0045 THIS AM. REVIEWED AND AGREED WITH GUITAR REPAIRER SHIFT ASSESSMENT. SEE ASSESSMENT FOR MORE DETAILS. BROWN SALTER UPON TRANSFER TO PCU 3.
[2023-01-30 04:05] LABS: BASOPHILS ABSOLUTE AUTO 0.05 K/mm3 (0.00-0.23); BASOPHILS PERCENT AUTO 0 % (0-2); EOSINOPHILS ABSOLUTE AUTO 0.11 K/mm3 (0.00-0.68); EOSINOPHILS PERCENT AUTO 1 % (0-6); Hematocrit 32.5 % (37.0-53.0); Hemoglobin 11.4 g/dL (13.5-17.5); IMMATURE GRAN ABSOLUTE AUTO 0.64 K/mm3 (0.00-0.10); IMMATURE GRAN PERCENT AUTO 4 % (0-1); LYMPHOCYTES PERCENT AUTO 8 % (21-46); MONOCYTES ABSOLUTE AUTO 1.08 K/mm3 (0.16-1.47); MONOCYTES PERCENT AUTO 7 % (4-13); Mean Corpuscular HGB 34.5 pg (26.0-34.0); Mean Corpuscular HGB Conc 35.1 g/dL (31.5-36.5); Mean Corpuscular Volume 99 fL (80-100); Mean Platelet Volume 10.5 fL (9.1-12.4); NEUTROPHILS ABSOLUTE AUTO 11.52 K/mm3 (1.96-9.15); NEUTROPHILS PERCENT AUTO 80 % (41-73); Platelet Count 251 K/mm3 (150-400); RDW Coefficient Variation 14.5 % (11.7-14.2); RDW Standard Deviation 52.3 fL (35.1-46.3)
[2023-01-30 04:23] LABS: Albumin, Blood 1.9 g/dL (3.4-5.0); Albumin/Globulin Ratio 0.6 (0.8-1.8); Bilirubin, Total 0.7 mg/dL (0.1-1.0); Bun/Creatinine Ratio 23.2 (12.0-20.0); Calcium, Blood 8.3 mg/dL (8.5-10.1); Creatinine, Blood 1.12 mg/dL (0.60-1.20); Globulin, Blood 3.3 g/dL (2.2-4.0); Potassium, Blood 4.7 mmol/L (3.5-5.5); Total Protein, Blood 5.2 g/dL (6.4-8.2)
--- NOTE | 2023-01-30 05:44 | NUR ---
SHIFT SUMMARY PT IS A/Ox3-4 AND COOPERATIVE WITH CARE. ANSWERS QUESTIONS APPROPRIATELY AND ABLE TO MAKE HIS NEEDS KNOWN. TRANSFERRED FROM ICU THIS AM TO PCU3. CARDIAC, REMAINS IN SR 60-70'S WITH NO C/O CP OR PRESSURE T/O THE NIGHT. SBP HAS BEEN STABLE RANGING IN THE 100-110'S. RESPIRATORY, MAINTAINS SPO2 >90% ON 5L VIA HIGH FLOW NC WITH NO NEED TO SWITCH BACK TO AIRVO AT THIS TIME. LS CONTINUE TO BE COA T/O WITH CRACKLES PRESENT IN THE BASES. INTERMITTENT PRODUCTIVE COUGH WITH STONE COLORED SPUTUM. SOB NOTED WITH EXERTION. GI/, ABLE TO USE URINAL AT BEDSIDE WITH MINMAL STAFF ASSIST. PER DIP BRAZIER REPORT, PT HAD BM DURING DAYSHIFT 01/29/23 AFTER REPORTING SOME CONSTIPATION OVER THE LAST WEEK. ABD MOSTLY SOFT WITH NO REPORTS OF TENDERNESS AT THIS TIME. SCATTERED BRUISING NOTED T/O BUE FROM REPEATED IV POKES/LAB DRAWS. REPORTS GENERAL WEAKNESS/DECONDITIONING, PT/OT ON BOARD AND WORKING WITH PT. VIA EMAR. ASSESSED PT FOR RISKS OF ANY IGNITION SOURCES WELL BEHAVIORS FOR INCREASED RISKS OF FIRE DANGER. PT EDUCATED ON COMMON SOURCES OF IGNITION WELL NEED TO KEEP A SAFE ENVIRONMENT. PT VOICED HIS UNDERSTANDING. NO NEW ORDERS AT THIS TIME, WILL REPORT TO ONCOMING RN. BROWN SALTER OF THIS NOTE.
--- NOTE | 2023-01-30 06:50 | NUR ---
FAMILY: PT ELEAZAR NOTIFIED OF TRANSFER TO PCU.
--- NOTE | 2023-01-30 11:44 | NUR ---
Spiritual Care Visit. Pt. is awake in bed and welcomes my visit. Pt. is unsettled about how to handle some probelems in his home mu-ism. Listen with emapthy and pastoral industrial relations counselor is given. Consider matters of reg, beleif, ministry and compassion. Pt. displays evidence of feeling understood and encouraged. Spouse arrived. Prayed with Pt. Pt. and spouse verbalized gratitude for the spiritual care visit.
--- NOTE | 2023-01-30 16:39 | NUR ---
Noted Dr. Fenton request to attempt to treat pt's anxiety/PTSD surrounding the multiple shocks by ICD over this admission. Pt has repeatedly claimed to staff that he is experiencing severe anxiety related to the shocks. Consulted with pharmacist, they recommended trying Buspirone. Relayed to Dr. Jack. Pt's remains at bedside. Palliative care will continue with supportive visits. Pt states he really appreciates the visits.
--- NOTE | 2023-01-30 17:58 | NUR ---
END OF SHIFT PT A&O X4. VSS. SPO2 > 92% ON 4-6L NC. MONITOR SHOWING SR-PACED RHYTHM, HR 60s-
[2023-01-31 03:37] VITALS: BP 101/59
[2023-01-31 03:51] LABS: BASOPHILS ABSOLUTE AUTO 0.06 K/mm3 (0.00-0.23); BASOPHILS PERCENT AUTO 1 % (0-2); EOSINOPHILS ABSOLUTE AUTO 0.16 K/mm3 (0.00-0.68); EOSINOPHILS PERCENT AUTO 1 % (0-6); Hematocrit 31.4 % (37.0-53.0); Hemoglobin 11.1 g/dL (13.5-17.5); IMMATURE GRAN ABSOLUTE AUTO 0.65 K/mm3 (0.00-0.10); IMMATURE GRAN PERCENT AUTO 5 % (0-1); LYMPHOCYTES ABSOLUTE AUTO 1.08 K/mm3 (0.84-5.20); LYMPHOCYTES PERCENT AUTO 8 % (21-46); MONOCYTES ABSOLUTE AUTO 1.11 K/mm3 (0.16-1.47); MONOCYTES PERCENT AUTO 8 % (4-13); Mean Corpuscular HGB 35.2 pg (26.0-34.0); Mean Corpuscular HGB Conc 35.4 g/dL (31.5-36.5); Mean Corpuscular Volume 100 fL (80-100); Mean Platelet Volume 10.9 fL (9.1-12.4); NEUTROPHILS ABSOLUTE AUTO 10.15 K/mm3 (1.96-9.15); NEUTROPHILS PERCENT AUTO 77 % (41-73); Platelet Count 277 K/mm3 (150-400); RDW Coefficient Variation 14.6 % (11.7-14.2); RDW Standard Deviation 53.2 fL (35.1-46.3); Red Blood Cell Count 3.15 M/mm3 (4.30-5.90); White Blood Cell Count 13.21 K/mm3 (4.00-11.30)
[2023-01-31 04:10] LABS: Albumin, Blood 1.8 g/dL (3.4-5.0); Albumin/Globulin Ratio 0.6 (0.8-1.8); Bilirubin, Total 0.5 mg/dL (0.1-1.0); Bun/Creatinine Ratio 20.2 (12.0-20.0); Creatinine, Blood 1.19 mg/dL (0.60-1.20); Globulin, Blood 3.2 g/dL (2.2-4.0); Potassium, Blood 4.6 mmol/L (3.5-5.5)
--- NOTE | 2023-01-31 04:43 | NUR ---
SHIFT SUMMARY A/Ox4 AND COOPERATIVE WITH CARE BY STAFF. ANSWERS QUESTIONS APPROPRIATELY AND ABLE TO MAKE HIS NEEDS KNOWN. NO ACUTE EVENTS OVERNIGHT FOR PT WAS ABLE TO SLEEP FOR SOME TIME DURING THE NIGHT. CONTINUES TO EXPRESS HIS CONCERNS/FEAR OF BEING SHOCKED AGAIN VIA HIS IMPLANTED ICD DEVICE. ALSO REPORTS INCREASING DISCOURAGEMENT/FRUSTRATION WITH HOW WEAK HE FEELS. THIS RN HAD LONG TALK WITH PT USING ACTIVE LISTENING AND THERAPEUTIC COMMUNICATION. PT EXPRESSES HIS WISHES TO CONTINUE WORKING WITH PALLIATIVE CARE WELL RECEIVED SPIRITUAL CARE VISITS. CARDIAC, REMAINS IN SR-PACED RHYTHM WITH NO REPORTS OF CP OR PRESSURE T/O THE SHIFT. SBP HAS BEEN STABLE RANGING 100-110 S. RESPIRATORY, MAINTAINS SPO2 >90% ON 4-6L VIA HIGH-FLOW NC. SOME SOB/INCREASED WORK OF BREATHING NOTED WITH EXERTION. ABLE TO RECOVER WELL WHEN AT REST. CONTINUES TO HAVE PRODUCTIVE COUGH EXPELLING THICK/STONE SPUTUM.GI/, ABLE TO VOID INTO URINAL AT BEDSIDE WITH SOME ASSISTANCE FROM STAFF. NO BM DURING THIS SHIFT. PT REPORTING INCREASING LOWER BACK PAIN RELATING TO THESE BEDS ARE JUST SO UNCOMFORTABLE. EGG CRATE MATTRESS WELL HEATING PAD W/PILLOWS USED TO HELP ALLEVIATE PT'S PAIN. PAIN HAS ALSO BEEN MANAGED VIA EMAR. PT REPORTS THESE INTERVENTIONS HAVE BEEN VERY SUCCESSFUL IN CONTROLLING HIS BACK PAIN. ASSESSED PT FOR RISKS OF ANY IGNITION SOURCES WELL BEHAVIORS FOR INCREASED RISKS OF FIRE DANGER. PT EDUCATED ON COMMON SOURCES OF IGNITION WELL NEED TO KEEP A SAFE ENVIRONMENT. NO NEW ORDERS AT THIS TIME, WILL REPORT TO ONCOMING RN. BROWN SALTER OF THIS NOTE.
[2023-01-31 08:23] VITALS: BP 94/74
[2023-01-31 12:33] VITALS: BP 90/69
--- NOTE | 2023-01-31 12:33 | NUR ---
Pt sitting up in the chair eating lunch. He appears well-rested; better than any day previously. He reports feeling "so much better", states last night was the first good night of sleep he's had since start of hospitalization. He denies pain or SOB. States he isn't having any anxiety so far today, which he also contributes to getting a good night's sleep. is not present at this visit. Will check in with her when she returns. She is working on a medical POA for patient, and may want to utilize a notary here in the hospital. Palliative care will remain available.
[2023-01-31 15:08] VITALS: BP 123/78
--- NOTE | 2023-01-31 18:53 | NUR ---
END OF SHIFT PT A&O X4. VSS. SPO2 > 92% ON 4L NC. PT W/ EPISODE OF BECOMING "LIGHTHEADED / DIZZY" THIS SHIFT WHILE SITTING UP IN RECLINER CHAIR TALKING TO THIS RN. PT SUDDENLY LOOKED UNWELL. PT VSS AT TIME OF EVENT. TELELMETRY SHOWING PACED RHYTHM, HR 60s. PT ALSO REPORTING BLURRY VISION & POOR DEPTH PERCEPTION. MD SHORT SPONTANEOUSLY TO AT TIME OF EVENT. MD ASSESSMENT OF PT & REQUEST TO CONTINUE TO MONITOR. PT REPORTING NEED TO REST. UPON WAKING AFTER RESTING, PT REPORTING "MY VISION IS CRYSTAL CLEAR." PT DENYING FURTHER LIGHTHEADEDNESS/DIZZINESS OR RETURN OF SYMPTOMS.
[2023-01-31 19:57] VITALS: BP 118/70
[2023-01-31 23:53] VITALS: BP 98/63
[2023-02-01 03:48] VITALS: BP 114/70
[2023-02-01 04:20] LABS: BASOPHILS ABSOLUTE AUTO 0.06 K/mm3 (0.00-0.23); BASOPHILS PERCENT AUTO 0 % (0-2); EOSINOPHILS ABSOLUTE AUTO 0.19 K/mm3 (0.00-0.68); EOSINOPHILS PERCENT AUTO 1 % (0-6); Hematocrit 31.6 % (37.0-53.0); Hemoglobin 11.2 g/dL (13.5-17.5); IMMATURE GRAN ABSOLUTE AUTO 0.48 K/mm3 (0.00-0.10); IMMATURE GRAN PERCENT AUTO 3 % (0-1); LYMPHOCYTES ABSOLUTE AUTO 1.12 K/mm3 (0.84-5.20); LYMPHOCYTES PERCENT AUTO 8 % (21-46); MONOCYTES ABSOLUTE AUTO 1.16 K/mm3 (0.16-1.47); MONOCYTES PERCENT AUTO 8 % (4-13); Mean Corpuscular HGB 35.1 pg (26.0-34.0); Mean Corpuscular HGB Conc 35.4 g/dL (31.5-36.5); Mean Corpuscular Volume 99 fL (80-100); Mean Platelet Volume 11.2 fL (9.1-12.4); NEUTROPHILS ABSOLUTE AUTO 11.68 K/mm3 (1.96-9.15); NEUTROPHILS PERCENT AUTO 80 % (41-73); Platelet Count 316 K/mm3 (150-400); RDW Coefficient Variation 14.4 % (11.7-14.2); RDW Standard Deviation 52.4 fL (35.1-46.3); Red Blood Cell Count 3.19 M/mm3 (4.30-5.90); White Blood Cell Count 14.69 K/mm3 (4.00-11.30)
[2023-02-01 04:47] LABS: Albumin/Globulin Ratio 0.6 (0.8-1.8); Bilirubin, Total 0.6 mg/dL (0.1-1.0); Bun/Creatinine Ratio 19.7 (12.0-20.0); Calcium, Blood 8.3 mg/dL (8.5-10.1); Creatinine, Blood 1.22 mg/dL (0.60-1.20); Globulin, Blood 3.2 g/dL (2.2-4.0); Potassium, Blood 4.4 mmol/L (3.5-5.5); Total Protein, Blood 5.2 g/dL (6.4-8.2)
--- NOTE | 2023-02-01 06:35 | NUR ---
SHIFT SUMMARY PATIENT ALERT AND ORIENTED X4, 1 ASSIST WITH FWW TO AMBULATE. PATIENT DENIES HAVING PAIN OR SHORTNESS OF BREATH. PATIENT DID REPORT FEELING ANXIOUS, ESPECIALLY WHEN HEARING ALARMS GOING OFF. SPO2 94% ON 4 LITERS O2 VIA NC. VITAL SIGNS STABLE. NO ACUTE ISSUES NOTED OVERNIGHT. PATIENT ASSESSED FOR IGNITION RISK AND EDUCATED ON FIRE SAFETY IN THE HOSPITAL. WILL CONTINUE TO MONITOR. CALL LIGHT WITHIN REACH.
[2023-02-01 07:55] VITALS: BP 102/59
--- NOTE | 2023-02-01 10:03 | NUR ---
FIRE IGNITION RISK ASSESSMENT PT ASSESSED FOR SMOKING AND FIRE IGNITION RISK DEVICES, NONE REPORTED. PT REMINDED THAT [facility] IS A SMOKE FREE FACILITY AND THAT ANY VISITORS NEED TO LEAVE FIRE IGNITION RISK DEVICES IN THEIR VEHICLE, PT AGREED.
[2023-02-01 11:44] VITALS: BP 110/63
[2023-02-01 16:18] VITALS: BP 135/82
--- NOTE | 2023-02-01 17:31 | NUR ---
SHIFT SUMMARY PT A/OX4 AND COOPERATIVE OF CARE. PT EXPRESSED SOME ANXIETY ABOUT BEING DISCHARGED TO TO A SNF, PT EDUCATED ON THE PROCESS. PT O2 SATS TITRATED TO 1L NC, ATTEMPTED RA THIS AM AND SATS WENT DOWN TO MID 80'S. PT SATS STABLE ON 1L NC UNTIL PT WAS SLEEPING ON HIS SIDE, SATS DOWN TO 80'S AGAIN, 4L APPLIED WHILE SLEEPING. NO REPORT OF SOB/DYSPNEA. OTHER VSS THROUGHOUT SHIFT. PT REPORTED PAIN TO HIS BOTTOM FROM "SITTING WAY TOO LONG ON MY BUTT." PT ABLE TO TRANSFER WITH 1 PERSON ASSIST AND FWW/GAITBELT, TOLERATED WELL. NO REPORT OF CHEST PAIN/PRESSURE THROUGHOUT SHIFT.
[2023-02-01 21:11] VITALS: BP 111/68
[2023-02-01 23:06] VITALS: BP 142/82
[2023-02-02 03:22] VITALS: BP 98/68
[2023-02-02 03:43] LABS: BASOPHILS ABSOLUTE AUTO 0.06 K/mm3 (0.00-0.23); BASOPHILS PERCENT AUTO 0 % (0-2); EOSINOPHILS ABSOLUTE AUTO 0.09 K/mm3 (0.00-0.68); EOSINOPHILS PERCENT AUTO 1 % (0-6); Hematocrit 32.4 % (37.0-53.0); Hemoglobin 11.3 g/dL (13.5-17.5); IMMATURE GRAN ABSOLUTE AUTO 0.38 K/mm3 (0.00-0.10); IMMATURE GRAN PERCENT AUTO 3 % (0-1); LYMPHOCYTES ABSOLUTE AUTO 1.04 K/mm3 (0.84-5.20); LYMPHOCYTES PERCENT AUTO 8 % (21-46); MONOCYTES ABSOLUTE AUTO 1.15 K/mm3 (0.16-1.47); MONOCYTES PERCENT AUTO 9 % (4-13); Mean Corpuscular HGB 34.8 pg (26.0-34.0); Mean Corpuscular HGB Conc 34.9 g/dL (31.5-36.5); Mean Corpuscular Volume 100 fL (80-100); Mean Platelet Volume 10.8 fL (9.1-12.4); NEUTROPHILS ABSOLUTE AUTO 10.85 K/mm3 (1.96-9.15); NEUTROPHILS PERCENT AUTO 80 % (41-73); Platelet Count 335 K/mm3 (150-400); RDW Coefficient Variation 14.2 % (11.7-14.2); RDW Standard Deviation 52.2 fL (35.1-46.3); Red Blood Cell Count 3.25 M/mm3 (4.30-5.90); White Blood Cell Count 13.57 K/mm3 (4.00-11.30)
[2023-02-02 04:01] LABS: Albumin/Globulin Ratio 0.6 (0.8-1.8); Bilirubin, Total 0.6 mg/dL (0.1-1.0); Bun/Creatinine Ratio 18.1 (12.0-20.0); Creatinine, Blood 1.27 mg/dL (0.60-1.20); Globulin, Blood 3.3 g/dL (2.2-4.0); Potassium, Blood 4.3 mmol/L (3.5-5.5); Total Protein, Blood 5.3 g/dL (6.4-8.2)
--- NOTE | 2023-02-02 06:29 | NUR ---
SHIFT SUMMARY PATIENT ALERT AND ORIENTED X4, 1 ASSIST WITH FWW. PATIENT ANXIOUS OVERNIGHT. AT ONE POINT REPORTED HAVING NONSPECIFIC CHEST PAIN, MEDICATED PER EMAR WITH TRAMADOL WHICH WAS EFFECTIVE IN TREATING THE PAIN, PATIENT ABLE TO SLEEP WELL AFTER. PATIENT DENIED HAVING SHORTNESS OF BREATH. PATIENT ON 4 LITERS O2 VIA NASAL CANULA WHILE SLEEPING WITH SPO2 93%. VITAL SIGNS STABLE, SINUS RHYTHM AND PACED ON TELE. ASSESSED PATIENT FOR IGNITION RISK AND EDUCATED PATIENT ON FIRE SAFETY WITHIN THE HOSPITAL. WILL CONTINUE TO MONITOR. CALL LIGHT WITHIN REACH.
[2023-02-02 07:44] VITALS: BP 102/63
--- NOTE | 2023-02-02 09:37 | NUR ---
FIRE IGNITION RISK ASSESSMENT PT ASSESSED FOR SMOKING AND FIRE IGNTION RISK DEVICES, NONE REPORTED. PT REMINDED THAT [facility] IS A SMOKE FREE FACILITY AND THAT ANY VISITORS NEED TO LEAVE THEIR IGNITION RISK DEVICES IN THEIR VEHICLE, PT AGREED.
--- NOTE | 2023-02-02 11:48 | NUR ---
CONTACTED AND UPDATED ON PT BEING TRANSFERED AROUND 1400 TO SNF.
[2023-02-02 11:49] LABS: SARS-Cov-2 (COVID-19) PCR, MMC NEGATIVE (NEGATIVE)
--- NOTE | 2023-02-02 14:27 | NUR ---
DISCHARGE TO SNF UPDATE REPORT ATTEMPTED TO BE CALLED AT 1320,NO RN AVAILABLE AT THAT TIME. UV NURSE NEHEMIAS CALLED AT 1415 FOR REPORT. PT LEFT PCU AT 1400 VIA WHEELCHAIR WITH TRANSPORT. TRANSFER PAPER WITH FACE SHEET GIVEN TO TRANSPORT PERSONEL. PT BELONGINGS BAGGED AND WITH PT DURING TRANSFER. PT EYE GLASSESS AND CELL PHONE IN BAG AND PT MADE AWARE. PT ABLE TO TRANSFER TO WHEELCHAIR WITH MINIAML ASSISTANCE USING FWW AND GAITBELT. PT LEFT PCU ON 1L NC. NO RPEORT OF CHEST PAIN/PRESSURE OR SOB/DYSPNEA AT TIME OF TRANSFER.
== END 2023-02-02 14:00 | DRG 871 ==
LOC: ER 07:17 → ICUE 10:55 → PCU 10:55 → ICUE 22:17 → PCU 01-23 16:49 → ICUE 01-25 16:02 → PCU 01-30 01:07
PROVIDERS: Emergency Medicine; Family Medicine; Internal Medicine; Internal Medicine Critical Care Medicine; Student in an Organized Health Care Education/Training Program; ADMIT Hospitalist
PROC: 3E033XZ Introduction of Vasopressor into Peripheral Vein, Percutaneous Approach (ICD-10-PCS; 2023-01-21)
PROC: 3E03329 Introduction of Other Anti-infective into Peripheral Vein, Percutaneous Approach (ICD-10-PCS; 2023-01-21)
PROC: 5A0945A Assistance with Respiratory Ventilation, 24-96 Consecutive Hours, High Flow/Velocity Cannula (ICD-10-PCS; principal; 2023-01-22)
PROC: 5A2204Z Restoration of Cardiac Rhythm, Single (ICD-10-PCS; 2023-01-25)
DX: A41.50 Gram-negative sepsis, unspecified (principal); J15.0 Pneumonia due to Klebsiella pneumoniae; J96.01 Acute respiratory failure with hypoxia; R65.21 Severe sepsis with septic shock; J15.6 Pneumonia due to other Gram-negative bacteria; J96.02 Acute respiratory failure with hypercapnia; I47.20 Ventricular tachycardia, unspecified; I42.8 Other cardiomyopathies; I48.92 Unspecified atrial flutter; I50.42 Chronic combined systolic (congestive) and diastolic (congestive) heart failure; I13.0 Hypertensive heart and chronic kidney disease with heart failure and stage 1 through stage 4 chronic kidney disease, or unspecified chronic kidney disease; E87.1 Hypo-osmolality and hyponatremia; N17.9 Acute kidney failure, unspecified; B38.2 Pulmonary coccidioidomycosis, unspecified; K52.1 Toxic gastroenteritis and colitis; A09 Infectious gastroenteritis and colitis, unspecified; N18.30 Chronic kidney disease, stage 3 unspecified; E03.9 Hypothyroidism, unspecified; G47.00 Insomnia, unspecified; Z20.822 Contact with and (suspected) exposure to COVID-19; I25.10 Atherosclerotic heart disease of native coronary artery without angina pectoris; E78.5 Hyperlipidemia, unspecified; E86.0 Dehydration; R79.89 Other specified abnormal findings of blood chemistry; I27.20 Pulmonary hypertension, unspecified; R91.1 Solitary pulmonary nodule; E80.6 Other disorders of bilirubin metabolism; E77.8 Other disorders of glycoprotein metabolism; E83.39 Other disorders of phosphorus metabolism; E88.09 Other disorders of plasma-protein metabolism, not elsewhere classified; D63.1 Anemia in chronic kidney disease; D69.6 Thrombocytopenia, unspecified; F41.9 Anxiety disorder, unspecified; F32.A Depression, unspecified; F43.10 Post-traumatic stress disorder, unspecified; Z85.89 Personal history of malignant neoplasm of other organs and systems; Z92.21 Personal history of antineoplastic chemotherapy; Z92.3 Personal history of irradiation; Z87.891 Personal history of nicotine dependence; Z98.890 Other specified postprocedural states; Z79.82 Long term (current) use of aspirin; Z79.890 Hormone replacement therapy; Z79.899 Other long term (current) drug therapy; Z95.0 Presence of cardiac pacemaker
CPT/HCPCS: 0241U; 36415; 71045; 71250; 80048; 80053; 81001; 82248; 82533; 82607; 82746; 82803; 83010; 83605; 83615; 83735; 83880; 84100; 84145; 84439; 84443; 84481; 85025; 85045; 85379; 85610; 85730; 86635; 87040; 87070; 87077; 87086; 87106; 87186; 87205; 87449; 87507; 87633; 92960; 93005; 93010; 94640; 94664; 94667; 94668; 94760; 94762; 96365; 96375; 97110; 97112; 97116; 97162; 97530; 99152; 99285-25; A9270; C1751; J0282; J0456; J0461; J0692; J0696; J1650; J1956; J2001; J2060; J2185; J2250; J2405; J3010; J3370; J3475; J7030; J7050; J7060; J7120; U0002

== ENCOUNTER 2023-02-05 10:00 | Emergency (ER) | payer MEDICARE ==
[~2023-02-05] VITALS: Ht 167.6 cm; Wt 56.7 kg
[2023-02-05 11:13] LABS: BASOPHILS ABSOLUTE AUTO 0.09 K/mm3 (0.00-0.23); BASOPHILS PERCENT AUTO 1 % (0-2); EOSINOPHILS ABSOLUTE AUTO 0.01 K/mm3 (0.00-0.68); EOSINOPHILS PERCENT AUTO 0 % (0-6); Hematocrit 37.7 % (37.0-53.0); Hemoglobin 13.2 g/dL (13.5-17.5); IMMATURE GRAN ABSOLUTE AUTO 0.32 K/mm3 (0.00-0.10); IMMATURE GRAN PERCENT AUTO 2 % (0-1); LYMPHOCYTES ABSOLUTE AUTO 1.13 K/mm3 (0.84-5.20); LYMPHOCYTES PERCENT AUTO 8 % (21-46); MONOCYTES ABSOLUTE AUTO 1.23 K/mm3 (0.16-1.47); MONOCYTES PERCENT AUTO 9 % (4-13); Mean Corpuscular HGB 34.7 pg (26.0-34.0); Mean Corpuscular Volume 99 fL (80-100); Mean Platelet Volume 10.8 fL (9.1-12.4); NEUTROPHILS ABSOLUTE AUTO 10.83 K/mm3 (1.96-9.15); NEUTROPHILS PERCENT AUTO 80 % (41-73); Platelet Count 452 K/mm3 (150-400); RDW Standard Deviation 51.2 fL (35.1-46.3); White Blood Cell Count 13.61 K/mm3 (4.00-11.30)
[2023-02-05 11:23] LABS: Albumin, Blood 2.4 g/dL (3.4-5.0); Albumin/Globulin Ratio 0.7 (0.8-1.8); Bilirubin, Total 0.4 mg/dL (0.1-1.0); Bun/Creatinine Ratio 18.1 (12.0-20.0); Calcium, Blood 8.4 mg/dL (8.5-10.1); Creatinine, Blood 1.38 mg/dL (0.60-1.20); Globulin, Blood 3.4 g/dL (2.2-4.0); Potassium, Blood 4.3 mmol/L (3.5-5.5); Total Protein, Blood 5.8 g/dL (6.4-8.2)
[2023-02-05 17:00] VITALS: BP 143/86
== END 2023-02-05 17:10 | disposition home or self-care (01) ==
LOC: ER 10:00
PROVIDERS: Emergency Medicine
DX: I95.9 Hypotension, unspecified (principal); Z79.899 Other long term (current) drug therapy; Z79.82 Long term (current) use of aspirin; I50.22 Chronic systolic (congestive) heart failure; N18.30 Chronic kidney disease, stage 3 unspecified; E03.9 Hypothyroidism, unspecified; E78.5 Hyperlipidemia, unspecified
CPT/HCPCS: 80053; 85025; 93005; 93010; 96360; 96361; 99285-25; J7030

== ENCOUNTER 2023-02-05 18:49 | Emergency (ER) | payer MEDICARE ==
[~2023-02-05] VITALS: Ht 177.8 cm; Wt 56.7 kg
[2023-02-05 19:32] LABS: BASOPHILS ABSOLUTE AUTO 0.07 K/mm3 (0.00-0.23); BASOPHILS PERCENT AUTO 1 % (0-2); EOSINOPHILS ABSOLUTE AUTO 0.01 K/mm3 (0.00-0.68); EOSINOPHILS PERCENT AUTO 0 % (0-6); Hematocrit 41.5 % (37.0-53.0); Hemoglobin 14.3 g/dL (13.5-17.5); IMMATURE GRAN ABSOLUTE AUTO 0.23 K/mm3 (0.00-0.10); IMMATURE GRAN PERCENT AUTO 2 % (0-1); LYMPHOCYTES ABSOLUTE AUTO 0.94 K/mm3 (0.84-5.20); LYMPHOCYTES PERCENT AUTO 8 % (21-46); MONOCYTES ABSOLUTE AUTO 0.89 K/mm3 (0.16-1.47); MONOCYTES PERCENT AUTO 8 % (4-13); Mean Corpuscular HGB Conc 34.5 g/dL (31.5-36.5); Mean Corpuscular Volume 99 fL (80-100); Mean Platelet Volume 10.9 fL (9.1-12.4); NEUTROPHILS ABSOLUTE AUTO 9.39 K/mm3 (1.96-9.15); NEUTROPHILS PERCENT AUTO 81 % (41-73); Platelet Count 556 K/mm3 (150-400); RDW Coefficient Variation 14.1 % (11.7-14.2); RDW Standard Deviation 50.9 fL (35.1-46.3); Red Blood Cell Count 4.21 M/mm3 (4.30-5.90); White Blood Cell Count 11.53 K/mm3 (4.00-11.30)
[2023-02-05 19:47] LABS: Albumin, Blood 2.8 g/dL (3.4-5.0); Albumin/Globulin Ratio 0.7 (0.8-1.8); Bilirubin, Total 0.8 mg/dL (0.1-1.0); Bun/Creatinine Ratio 16.1 (12.0-20.0); Calcium, Blood 8.7 mg/dL (8.5-10.1); Creatinine, Blood 1.24 mg/dL (0.60-1.20); Globulin, Blood 4.2 g/dL (2.2-4.0)
[2023-02-05 20:06] LABS: Source, Urine Voided
[2023-02-05 20:07] LABS: Appearance, Urine Hazy (Clear); Bilirubin, Urine Neg (Neg); Blood, Urine 5+ (Neg); Color, Urine Yellow (P-Yellow); Glucose Qualitative, Urine Neg (Neg); Ketones, Urine 2+ (Neg); Leukocyte Esterase, Urine Neg (Neg); Nitrite, Urine Neg (Neg); Protein, Urine 2+ (Neg); Urobilinogen, Urine NORM (Normal)
[2023-02-05 20:08] LABS: Magnesium, Blood 2.3 mg/dL (1.6-2.4)
[2023-02-05 20:28] LABS: Bacteria Not Seen /hpf; Red Blood Cells, Urine TNTC /hpf (0-2); Squamous Epithelial Cells Not Seen /hpf (Few); White Blood Cells, Urine Not Seen /hpf (0-5)
[2023-02-05 20:30] VITALS: BP 118/80
== END 2023-02-05 21:58 | disposition home or self-care (01) ==
LOC: ER 18:49
PROVIDERS: Emergency Medicine
DX: R42 Dizziness and giddiness (principal); R31.9 Hematuria, unspecified; I50.22 Chronic systolic (congestive) heart failure; E03.9 Hypothyroidism, unspecified; Z79.82 Long term (current) use of aspirin; Z79.890 Hormone replacement therapy; Z79.899 Other long term (current) drug therapy; Z95.810 Presence of automatic (implantable) cardiac defibrillator; Z87.891 Personal history of nicotine dependence
CPT/HCPCS: 80053; 81001; 83735; 83880; 85025; 93005; 93010; 96361; 96374; 99284-25; A9270; J2405; J7030

== ENCOUNTER 2023-02-12 07:21 | Inpatient (IN) | payer MEDICARE ==
[2023-02-12] VITALS (47 sets, daily range): BP systolic 77–154; BP diastolic 45–97
[~2023-02-12] VITALS: Ht 177.8 cm; Wt 61.5 kg
[2023-02-12 07:46] LABS: Hematocrit 33.2 % (37.0-53.0); Hemoglobin 11.3 g/dL (13.5-17.5); Mean Corpuscular HGB 34.8 pg (26.0-34.0); Mean Corpuscular Volume 102 fL (80-100); Mean Platelet Volume 10.3 fL (9.1-12.4); Platelet Count 267 K/mm3 (150-400); RDW Coefficient Variation 14.3 % (11.7-14.2); RDW Standard Deviation 53.5 fL (35.1-46.3); Red Blood Cell Count 3.25 M/mm3 (4.30-5.90)
[2023-02-12 08:05] LABS: Albumin, Blood 2.3 g/dL (3.4-5.0); Albumin/Globulin Ratio 0.8 (0.8-1.8); Bilirubin, Total 0.7 mg/dL (0.1-1.0); Calcium, Blood 8.5 mg/dL (8.5-10.1); Creatinine, Blood 1.36 mg/dL (0.60-1.20); Globulin, Blood 2.8 g/dL (2.2-4.0); Magnesium, Blood 1.5 mg/dL (1.6-2.4); Potassium, Blood 4.4 mmol/L (3.5-5.5); Total Protein, Blood 5.1 g/dL (6.4-8.2)
[2023-02-12 08:06] LABS: BAND PERCENT MAN 22 % (0-8); BASOPHILS PERCENT MAN 1 % (0-2); EOSINOPHILS PERCENT MAN 0 % (0-6); MONOCYTES PERCENT MAN 1 % (4-13); NEUTROPHILS ABSOLUTE MAN 19.89 K/mm3 (1.96-9.15); SEG NEUTROPHILS PERCENT MAN 76 % (41-73); TOTAL CELLS COUNTED 100
[2023-02-12 08:09] LABS: Bicarbonate Venous 24.9 mmol/L (24.0-30.0); PCO2 Venous 43.6 mmHg (38-42); pH Blood Venous 7.39 (7.34-7.37)
[2023-02-12] MEDS ORDERED: ALBU2.5V5 (09:49)
[2023-02-12] MEDS ORDERED: DOCU100 PO (09:50)
[2023-02-12] MEDS ORDERED: BISA10S PR (09:52)
[2023-02-12] MEDS ORDERED: ENTRESTO 24 MG1 EACH PO (09:52)
[2023-02-12] MEDS ORDERED: LEVSOD112 PO (09:53)
[2023-02-12] MEDS ORDERED: IPRAT-ALBUT 0.5-3 ML INH (09:53)
[2023-02-12] MEDS ORDERED: MEXI200 PO (09:54)
[2023-02-12] MEDS ORDERED: METO50ER PO ×2 (09:54→17:03)
[2023-02-12] MEDS ORDERED: XARELTO20 MG PO (09:57)
--- NOTE | 2023-02-12 18:40 | NUR ---
SHIFT SUMMARY PATIENT REMAINS ALERT AND ORIENTED X 4. GENERALIZED WEAKNESS R/T PNA. ON 6L VIA OXYMIZER WITH SPO2 MID TO HIGH 90'S. PRODUCTIVE COUGH WITH STONE/YELLOW SPUTUM SENT TO LAB FOR CULTURE. LEVOPHED @ 6 MCG/KG/MIN AND VASOPRESSIN @ 0.04 UNITS/HR INF TO KEEP MAPS GREATER THAN 65. URINATED 350ML THIS SHIFT AND NO BM. CT SCAN COMPLETED THIS EVENING AWAITING RESULTS.
[2023-02-12] MEDS ORDERED: GUAI600T33 PO (20:20)
[2023-02-12 21:16] LABS: Acinetobacter baumannii DNA Not Detected copy/mL (NOT DETECT); Enterobacter cloacae DNA Detected Bin 10^4 copy/mL (NOT DETECT); Escherichia coli DNA Not Detected copy/mL (NOT DETECT); Haemophilus influenzae DNA Not Detected copy/mL (NOT DETECT); Klebsiella aerogenes DNA Not Detected copy/mL (NOT DETECT); Klebsiella oxytoca DNA Not Detected copy/mL (NOT DETECT); Klebsiella pneumoniae DNA Detected Bin >=10^7 copy/mL (NOT DETECT); Moraxella catarrhalis DNA Not Detected copy/mL (NOT DETECT); Proteus sp DNA Not Detected copy/mL (NOT DETECT); Pseudomonas aeruginosa DNA Not Detected copy/mL (NOT DETECT); Serratia marcescens DNA Not Detected copy/mL (NOT DETECT); Staphylococcus aureus DNA Not Detected copy/mL (NOT DETECT); Streptococcus agalactiae DNA Not Detected copy/mL (NOT DETECT); Streptococcus pneumoniae DNA Not Detected copy/mL (NOT DETECT); Streptococcus pyogenes DNA Not Detected copy/mL (NOT DETECT)
[2023-02-12 21:17] LABS: Adenovirus DNA Not Detected (NOT DETECT); CTX-M Resistance Gene Not Detected; Chlamydia pneumonia Not Detected (NOT DETECT); Human Coronavirus RNA Not Detected (NOT DETECT); Human Metapneumovirus RNA Not Detected (NOT DETECT); IMP Resistance Gene Not Detected; Influenza virus A RNA Not Detected (NOT DETECT); Influenza virus B RNA Not Detected (NOT DETECT); KPC Resistance Gene Not Detected; Legionella pneumophila Not Detected (NOT DETECT); Mycoplasma pneumoniae Not Detected (NOT DETECT); NDM Resistance Gene Not Detected; OXA-48-like Resistance Gene Not Detected; Parainfluenza virus RNA Not Detected (NOT DETECT); Respiratory syncytial Vir RNA Not Detected (NOT DETECT); Rhinovirus+Enterovirus RNA Not Detected (NOT DETECT); VIM Resistance Gene Not Detected
[2023-02-12 23:32] LABS: Source, Urine Clean Catch
[2023-02-12 23:35] LABS: Bilirubin, Urine Neg (Neg); Blood, Urine 4+ (Neg); Glucose Qualitative, Urine Neg (Neg); Ketones, Urine 1+ (Neg); Leukocyte Esterase, Urine Neg (Neg); Nitrite, Urine Neg (Neg); Protein, Urine 1+ (Neg); Urobilinogen, Urine 1+ (Normal)
[2023-02-12 23:41] LABS: Appearance, Urine Clear (Clear); Color, Urine Yellow (P-Yellow)
[2023-02-12 23:42] LABS: Amorphous Light (0-Heavy); Bacteria Not Seen /hpf; Mucus Light (0-Heavy); Squamous Epithelial Cells Not Seen /hpf (Few); White Blood Cells, Urine Not Seen /hpf (0-5)
[2023-02-13] VITALS (45 sets, daily range): BP systolic 76–140; BP diastolic 42–84
[2023-02-13 04:08] LABS: Hematocrit 30.7 % (37.0-53.0); Hemoglobin 10.6 g/dL (13.5-17.5); Mean Corpuscular HGB 34.9 pg (26.0-34.0); Mean Corpuscular HGB Conc 34.5 g/dL (31.5-36.5); Mean Corpuscular Volume 101 fL (80-100); Mean Platelet Volume 10.5 fL (9.1-12.4); Platelet Count 237 K/mm3 (150-400); RDW Coefficient Variation 14.2 % (11.7-14.2); RDW Standard Deviation 52.5 fL (35.1-46.3); Red Blood Cell Count 3.04 M/mm3 (4.30-5.90); White Blood Cell Count 25.13 K/mm3 (4.00-11.30)
[2023-02-13 04:31] LABS: Albumin, Blood 2.2 g/dL (3.4-5.0); Albumin/Globulin Ratio 0.7 (0.8-1.8); Bilirubin, Total 0.7 mg/dL (0.1-1.0); Bun/Creatinine Ratio 15.7 (12.0-20.0); Calcium, Blood 8.7 mg/dL (8.5-10.1); Creatinine, Blood 1.15 mg/dL (0.60-1.20); Globulin, Blood 3.3 g/dL (2.2-4.0); Phosphorus, Blood 2.4 mg/dL (2.5-4.9); Potassium, Blood 4.3 mmol/L (3.5-5.5); Total Protein, Blood 5.5 g/dL (6.4-8.2)
[2023-02-13 04:35] LABS: BAND PERCENT MAN 17 % (0-8); BASOPHILS PERCENT MAN 0 % (0-2); EOSINOPHILS PERCENT MAN 0 % (0-6); LYMPHOCYTES ABSOLUTE MAN 1.25 K/mm3 (0.84-5.20); LYMPHOCYTES PERCENT MAN 5 % (21-46); MONOCYTES ABSOLUTE MAN 1.75 K/mm3 (0.16-1.47); MONOCYTES PERCENT MAN 7 % (4-13); NEUTROPHILS ABSOLUTE MAN 22.11 K/mm3 (1.96-9.15); SEG NEUTROPHILS PERCENT MAN 71 % (41-73); TOTAL CELLS COUNTED 100
--- NOTE | 2023-02-13 05:45 | NUR ---
SHIFT SUMMARY: Pt initially on vasopressin and levophed, titrated vasopressin off and levophed down from 6mcg /min to 3. Oxygen titrated from 6L simple mask to 3L nasal cannula. He is voiding using the urinal. Poor apetite. Has not had a bowel movement x 3 days. States that he will take a suppository later today. Slept on and off throughout the night.
--- NOTE | 2023-02-13 09:18 | NUR ---
ASSUMED CARE BEDSIDE REPORT TO ELIJAH TIMMONS AT 0700. PT RESTING IN BED. A&OX 4. FOLLOWS COMMANDS. C/O GENERALIZED WEAKNESS. LUNGS DIM, 3L VIA NC. O2 SATS >97%. NON PRODUCTIVE COUGH. PT SPEAKING IN FULL SENTENCES. SR, RATE 80-90'S. LEVO ON STANDBY. MAP >65. ABD ROUND, SOFT, NON TENDER. BT X 4. TOLERATING PO WELL. USING URINAL IN BED. PT REPORTS NO BM, SUPPOSITORY GIVEN. CVC TO RI, DRESSING C/D/I. PIV X 2. WILL CONTINUE TO MONITOR.
--- NOTE | 2023-02-13 11:09 | NUR ---
Spiritual Care Consult : ordered by Dr. Velia Harman Pt. is awake in bed and welcomes my visit. Pt. is familiar with this customer project manager from previous hospitalizations, so rapport is quickly re-established. Pt. is unsettled about the way he was treated in a recent ED admission. Pt. verbalized that he was told to "never come back to this hospital" which resulted in some emotional trauma. Listened with empathy and a calming presence. Pt. displayed evidence of lower stress, and verbalized gratitude for the spiritual care visit. Prayed with Pt. and will continue to be available to him during his admission.
--- NOTE | 2023-02-13 15:48 | NUR ---
SHIFT SUMMARY/TRANSFER TO PCU LEVO TITRATED OFF THIS SHIFT. MAP >65. SR, RATE 80-90'S. REMAINS ON 3L VIA NC. NON PRODUCTIVE COUGH. SPEAKING IN FULL SENTENCES. LUNGS DIM. PT UP TO CHAIR c PHYSICAL THERAPY, TOLERATED WELL, ONE PERSON STANDBY ASSIST c WALKER. GENERALIZED WEAKNESS. SUPPOSITORY GIVEN c MEDIUM BM THIS SHIFT. TOLERATING PO WELL. PT CONCERNED ABOUT TRANSFER TO PCU, DISCUSSED c LINO DURING REPORT AND c SAP BUSINESS OBJECTS CONSULTANT. CONCERNS DISCUSSED c PT REGARDING STAFF "WITH BAD ATTITUDES." RIJ LEFT IN PLACE D/T DIFFICULT ACCESS AND LAB DRAWS. SAP BUSINESS OBJECTS CONSULTANT IN PCU AWARE. REPORT TO LINO TIMMONS, PT TRANSFERRED TO PCU.
--- NOTE | 2023-02-13 18:09 | NUR ---
END OF SHIFT PT A&O X4. PT EXPRESSING CONCERNS/ANXIETIES W/ ALARMS & PREVIOUS HOSPITAL OCCURRENCES. TIME SPENT LISTENING TO PT BY THIS RN & PERINATAL SOCIAL WORKER. PT CALM IN RM, VOICING FEELING MORE AT EASE. PT VSS. SPO2 > 92% ON 3L NC, THEN TITRATED DOWN TO 2L NC W/ SPO2 MID-HIGH 90s. PT THEN DESAT TO 77% WHILE EATING. PT DENYING FEELING SOB. NC INCREASED TO 4L NC & PT ENCOURAGED TO TAKE DEEP BREATHS. PT W/ QUICK RETURN TO > 92%.
[2023-02-14] VITALS (10 sets, daily range): BP systolic 82–145; BP diastolic 52–95
[2023-02-14 05:35] LABS: BASOPHILS ABSOLUTE AUTO 0.02 K/mm3 (0.00-0.23); BASOPHILS PERCENT AUTO 0 % (0-2); EOSINOPHILS ABSOLUTE AUTO 0.05 K/mm3 (0.00-0.68); EOSINOPHILS PERCENT AUTO 0 % (0-6); Hematocrit 29.7 % (37.0-53.0); Hemoglobin 10.3 g/dL (13.5-17.5); IMMATURE GRAN ABSOLUTE AUTO 0.19 K/mm3 (0.00-0.10); IMMATURE GRAN PERCENT AUTO 1 % (0-1); LYMPHOCYTES ABSOLUTE AUTO 1.22 K/mm3 (0.84-5.20); LYMPHOCYTES PERCENT AUTO 7 % (21-46); MONOCYTES ABSOLUTE AUTO 1.35 K/mm3 (0.16-1.47); MONOCYTES PERCENT AUTO 8 % (4-13); Mean Corpuscular HGB 34.8 pg (26.0-34.0); Mean Corpuscular HGB Conc 34.7 g/dL (31.5-36.5); Mean Corpuscular Volume 100 fL (80-100); Mean Platelet Volume 10.4 fL (9.1-12.4); NEUTROPHILS ABSOLUTE AUTO 14.77 K/mm3 (1.96-9.15); NEUTROPHILS PERCENT AUTO 84 % (41-73); Platelet Count 195 K/mm3 (150-400); RDW Coefficient Variation 14.1 % (11.7-14.2); RDW Standard Deviation 52.1 fL (35.1-46.3); Red Blood Cell Count 2.96 M/mm3 (4.30-5.90)
[2023-02-14 06:00] LABS: Albumin, Blood 2.1 g/dL (3.4-5.0); Albumin/Globulin Ratio 0.6 (0.8-1.8); Bilirubin, Total 0.5 mg/dL (0.1-1.0); Bun/Creatinine Ratio 15.8 (12.0-20.0); Calcium, Blood 8.7 mg/dL (8.5-10.1); Creatinine, Blood 1.01 mg/dL (0.60-1.20); Globulin, Blood 3.4 g/dL (2.2-4.0); Potassium, Blood 4.2 mmol/L (3.5-5.5); Total Protein, Blood 5.5 g/dL (6.4-8.2)
--- NOTE | 2023-02-14 06:40 | NUR ---
NOC SHIFT SUMMARY PT ORIENTED X4, POOR SHORT TERM MEMORY. PLEASANT AND COOPERATIVE. VSS PER PT TREND. DENIES PAIN OR DISCOMFORT. VOIDING ADEQUATELY, BRIEFLY INCREASED O2 NEEDS TO 10L BUT BACK DOWN TO 3L THIS AM. THICK MUCUS - PT USED YANKEUR TO EVACUATE. WILL PASS ON TO DAY RN
[2023-02-14 08:13] LABS: HIV AB/P24 AG SCREEN Non Reactive (Non Reactive)
--- NOTE | 2023-02-14 19:28 | NUR ---
END OF SHIFT PT A&O X4. BP SOFT THIS AM. HOSPITALIST & ENGINEERING ADMINISTRATOR W/ INSTRUCTION TO LEAVE RIJ IN PLACE UNTIL THIS AFTERNOON IF BP IMPROVED. BP IMPROVED, RIJ REMOVED BY ETIOLOGIST. PT TOLERATED WELL. PT VSS. SPO2 > 92% ON 2-3L NC. PT W/ THICK BROWN/RED SPUTUM. PT UP W/ 1 PERSON ASSIST. REPORT GIVEN TO NEAR EAST ARCHEOLOGY PROFESSOR RN.
[2023-02-15 03:35] VITALS: BP 133/85
[2023-02-15 04:10] LABS: BASOPHILS ABSOLUTE AUTO 0.05 K/mm3 (0.00-0.23); BASOPHILS PERCENT AUTO 0 % (0-2); EOSINOPHILS ABSOLUTE AUTO 0.08 K/mm3 (0.00-0.68); EOSINOPHILS PERCENT AUTO 1 % (0-6); Hematocrit 32.3 % (37.0-53.0); Hemoglobin 11.2 g/dL (13.5-17.5); IMMATURE GRAN ABSOLUTE AUTO 0.17 K/mm3 (0.00-0.10); IMMATURE GRAN PERCENT AUTO 1 % (0-1); LYMPHOCYTES ABSOLUTE AUTO 0.95 K/mm3 (0.84-5.20); LYMPHOCYTES PERCENT AUTO 7 % (21-46); MONOCYTES ABSOLUTE AUTO 1.12 K/mm3 (0.16-1.47); MONOCYTES PERCENT AUTO 9 % (4-13); Mean Corpuscular HGB 34.6 pg (26.0-34.0); Mean Corpuscular HGB Conc 34.7 g/dL (31.5-36.5); Mean Corpuscular Volume 100 fL (80-100); Mean Platelet Volume 10.8 fL (9.1-12.4); NEUTROPHILS ABSOLUTE AUTO 10.58 K/mm3 (1.96-9.15); NEUTROPHILS PERCENT AUTO 82 % (41-73); Platelet Count 193 K/mm3 (150-400); RDW Coefficient Variation 13.7 % (11.7-14.2); RDW Standard Deviation 50.6 fL (35.1-46.3); Red Blood Cell Count 3.24 M/mm3 (4.30-5.90); White Blood Cell Count 12.95 K/mm3 (4.00-11.30)
[2023-02-15 04:40] LABS: Albumin, Blood 2.2 g/dL (3.4-5.0); Albumin/Globulin Ratio 0.6 (0.8-1.8); Bilirubin, Total 0.5 mg/dL (0.1-1.0); Bun/Creatinine Ratio 14.9 (12.0-20.0); Calcium, Blood 8.8 mg/dL (8.5-10.1); Creatinine, Blood 1.01 mg/dL (0.60-1.20); Globulin, Blood 3.6 g/dL (2.2-4.0); Potassium, Blood 4.1 mmol/L (3.5-5.5); Total Protein, Blood 5.8 g/dL (6.4-8.2)
--- NOTE | 2023-02-15 05:52 | NUR ---
SHIFT SUMMARY NO ACUTE CHANGES DURING NOC. SLEPT INTERMITTENTLY. ROUSES EASILY TO STIMULI. REPOSITIONS SELF IN BED. PT CONTINUES TO BE ANXIOUS ABOUT HIS MEDICAL CONDITION. CALMS WITH REASSURANCE. VSS T/O NOC. O2 4L NC WHILE SLEEPING. RESPIRATIONS EVEN AND UNLABORED. OCCASIONAL MOIST COUGH PRODUCTIVE OF THICK BROWN SPUTUM. DENIES NAUSEA. TOLERATING DIET. SWALLOWING WITHOUT DIFFICULTY. VOIDS WITHOUT DIFFICULTY.
[2023-02-15 07:53] VITALS: BP 130/85
--- NOTE | 2023-02-15 11:52 | NUR ---
TRANSFER TO MEDICAL PT A&O X4. VSS. SPO2 > 92% ON 3-4L NC. PT W/ OCCASSIONAL COUGH, PRODUCING THICK BROWN/RED SPUTUM. PT SELF SUCTIONING SPUTUM. MONITOR SHOWING SR W/ 1ST DEGREE, HR 70s. PT MADE MEDICAL W/ TELEMETRY STATUS. PT SWALLOWING MEDICATIONS & EATING/DRINKING W/ OUT NOTED DIFFICULTY. SPEECH THERAPY SEEING PT. PT TAKEN TO IMAGING FOR SWALLOW STUDY THIS AM. REPORT GIVEN TO ACCEPTING MEDICAL FLOOR RN ASSUMING CARE OF PT. PT TAKEN TO RM 326 IN WHEELCHAIR W/ BELONGINGS BY PCT @ APPROX 1150.
--- NOTE | 2023-02-15 14:46 | NUR ---
Spiritual Care Visit. Pt. is awake in bed when he welcomes my visit. Pt. is unsettled about his prognosis and verbalized anxiety about an upcoming discussion that required the presence of his spouse. Listened with empathy and a calming presence. Prayed with Pt. Focusing on his anxiety. Soon after prayer Paise the Speech therapist arrived to clarify the Pts. prognosis. The Pt. displayed evidence of great relief and verbalized gratitude for the spiritual care visit.
[2023-02-15 15:14] VITALS: BP 135/86
[2023-02-15 15:41] VITALS: BP 128/89
--- NOTE | 2023-02-15 18:24 | NUR ---
SHIFT SUMMARY PT ARRIVED TO MEDICAL FLOOR FROM PCU AT APPROX 1200 TODAY. PT WAS AxOx4. PLEASANT AND COOPERATIVE WITH CARE. PT'S , ELEAZAR, IN ROOM THIS SHIFT, UPDATED ON PLAN OF CARE BY PROVIDER. PT HAD MODIFIED BARRIUM SWALLOW THIS SHIFT, WITH SWALLOW PRECAUTION ORDERS PLACED BASED ON RESULTS. PT IS NOW ON [facility] SOFT DIET WITH NECTAR THICK LIQUIDS AND MEDS WHOLE IN APPLESAUCE. PT IS TOLERATING DIET WELL. PT DENIES PAIN THIS SHIFT. PT BREATHING WITHOUT DIFFICULTY ON 3L O2 VIA NC. LS DIM T/O. PER SOLAR SALES ASSOCIATE, TELE RUNNING AT SR 77BPM WITH 1ST DEG BBB. PT WAS EDUCATED ON FIRE RISK/SAFETY WITH A VERBALIZED UNDERSTANDING. PT IS CURRENTLY SITTING UP IN BED EATING DINNER. VITALS REVIEWED. CALL LIGHT IN REACH. DENIES ANY NEEDS AT THIS TIME.
[2023-02-15 19:42] VITALS: BP 139/89
[2023-02-16 05:01] VITALS: BP 123/78
--- NOTE | 2023-02-16 05:12 | NUR ---
SHIFT SUMMARY PT IS A&O4, 1 ASSIST TO THE BSC, PT HAD A BM OVERNIGHT, 3LNC, VSS, NO COMPLAINTS OF PAIN OVERNIGHT, IGNITION SOURCE WIOTH O2 USE EDUCATION PROVIDED, CONTINUE POC
[2023-02-16 06:00] LABS: BASOPHILS ABSOLUTE AUTO 0.07 K/mm3 (0.00-0.23); BASOPHILS PERCENT AUTO 1 % (0-2); EOSINOPHILS ABSOLUTE AUTO 0.14 K/mm3 (0.00-0.68); EOSINOPHILS PERCENT AUTO 1 % (0-6); Hematocrit 32.7 % (37.0-53.0); Hemoglobin 11.4 g/dL (13.5-17.5); IMMATURE GRAN ABSOLUTE AUTO 0.31 K/mm3 (0.00-0.10); IMMATURE GRAN PERCENT AUTO 3 % (0-1); LYMPHOCYTES ABSOLUTE AUTO 1.32 K/mm3 (0.84-5.20); LYMPHOCYTES PERCENT AUTO 13 % (21-46); MONOCYTES ABSOLUTE AUTO 1.18 K/mm3 (0.16-1.47); MONOCYTES PERCENT AUTO 12 % (4-13); Mean Corpuscular HGB 34.4 pg (26.0-34.0); Mean Corpuscular HGB Conc 34.9 g/dL (31.5-36.5); Mean Corpuscular Volume 99 fL (80-100); Mean Platelet Volume 10.8 fL (9.1-12.4); NEUTROPHILS ABSOLUTE AUTO 7.03 K/mm3 (1.96-9.15); NEUTROPHILS PERCENT AUTO 70 % (41-73); Platelet Count 216 K/mm3 (150-400); RDW Coefficient Variation 13.6 % (11.7-14.2); RDW Standard Deviation 49.8 fL (35.1-46.3); Red Blood Cell Count 3.31 M/mm3 (4.30-5.90); White Blood Cell Count 10.05 K/mm3 (4.00-11.30)
[2023-02-16 06:28] LABS: Albumin, Blood 2.2 g/dL (3.4-5.0); Albumin/Globulin Ratio 0.6 (0.8-1.8); Bilirubin, Total 0.4 mg/dL (0.1-1.0); Bun/Creatinine Ratio 13.1 (12.0-20.0); Calcium, Blood 8.9 mg/dL (8.5-10.1); Creatinine, Blood 1.07 mg/dL (0.60-1.20); Globulin, Blood 3.5 g/dL (2.2-4.0); Potassium, Blood 4.2 mmol/L (3.5-5.5); Total Protein, Blood 5.7 g/dL (6.4-8.2)
[2023-02-16 08:31] VITALS: BP 131/91
[2023-02-16 11:20] LABS: Influenza A, PCR NEGATIVE (NEGATIVE); Influenza B, PCR NEGATIVE (NEGATIVE); Resp Syncytial Virus, PCR NEGATIVE (NEGATIVE); SARS-Cov-2 (COVID-19) PCR, MMC NEGATIVE (NEGATIVE)
--- NOTE | 2023-02-16 15:26 | NUR ---
DC- PT LEFT W/TRANSPORT IN STABLE CONDITION WITH ALL BELONGINGS. THIS RN [facility] GIVE [facility] TWICE WITHOUT A NURSE ANSWERING THE PHONE BOTH TIMES AFTER BEING TRANSFERRED. UNABLE TO GIVE REPORT AT THIS TIME. 1530.
--- NOTE | 2023-02-16 16:20 | NUR ---
REPORT GIVEN TO IAIN BRODERICK AT [facility].
[2023-02-20 13:12] LABS: QUANTIFERON MITOGEN VALUE >10.00 IU/mL (.); QUANTIFERON NIL VALUE 0.09 IU/mL (.); QUANTIFERON TB2 AG VALUE 0.09 IU/mL (.); QUANTIFERON-TB GOLD PLUS Negative (Negative)
== END 2023-02-16 15:47 | DRG 871 ==
LOC: ER 07:21 → PCU 09:15 → ICUE 09:15 → PCU 02-13 15:41 → MEDS 02-15 11:57 → ENPENDDIS 02-16 13:13 → MEDS 02-16 15:47
PROVIDERS: Family Medicine; Internal Medicine; Student in an Organized Health Care Education/Training Program; ADMIT Hospitalist
PROC: 3E03329 Introduction of Other Anti-infective into Peripheral Vein, Percutaneous Approach (ICD-10-PCS; principal; 2023-02-12)
PROC: 3E033XZ Introduction of Vasopressor into Peripheral Vein, Percutaneous Approach (ICD-10-PCS; 2023-02-12)
PROC: 05HM33Z Insertion of Infusion Device into Right Internal Jugular Vein, Percutaneous Approach (ICD-10-PCS; 2023-02-12)
PROC: B543ZZA Ultrasonography of Right Jugular Veins, Guidance (ICD-10-PCS; 2023-02-12)
PROC: 5A0935A Assistance with Respiratory Ventilation, Less than 24 Consecutive Hours, High Flow/Velocity Cannula (ICD-10-PCS; 2023-02-14)
DX: A41.9 Sepsis, unspecified organism (principal); J18.9 Pneumonia, unspecified organism; J69.0 Pneumonitis due to inhalation of food and vomit; R65.21 Severe sepsis with septic shock; J96.02 Acute respiratory failure with hypercapnia; J96.21 Acute and chronic respiratory failure with hypoxia; E87.21 Acute metabolic acidosis; I50.42 Chronic combined systolic (congestive) and diastolic (congestive) heart failure; I42.8 Other cardiomyopathies; Z16.19 Resistance to other specified beta lactam antibiotics; I13.0 Hypertensive heart and chronic kidney disease with heart failure and stage 1 through stage 4 chronic kidney disease, or unspecified chronic kidney disease; I47.20 Ventricular tachycardia, unspecified; N18.30 Chronic kidney disease, stage 3 unspecified; I48.91 Unspecified atrial fibrillation; F41.9 Anxiety disorder, unspecified; R13.10 Dysphagia, unspecified; I44.0 Atrioventricular block, first degree; Z20.822 Contact with and (suspected) exposure to COVID-19; E78.5 Hyperlipidemia, unspecified; K59.09 Other constipation; F43.10 Post-traumatic stress disorder, unspecified; I27.20 Pulmonary hypertension, unspecified; E89.0 Postprocedural hypothyroidism; E83.42 Hypomagnesemia; B96.1 Klebsiella pneumoniae [K. pneumoniae] as the cause of diseases classified elsewhere; R79.89 Other specified abnormal findings of blood chemistry; D72.825 Bandemia; B96.89 Other specified bacterial agents as the cause of diseases classified elsewhere; I25.2 Old myocardial infarction; Z79.01 Long term (current) use of anticoagulants; Z99.81 Dependence on supplemental oxygen; Z87.891 Personal history of nicotine dependence; Z85.89 Personal history of malignant neoplasm of other organs and systems; Z95.810 Presence of automatic (implantable) cardiac defibrillator; Z79.82 Long term (current) use of aspirin; Z79.890 Hormone replacement therapy; Z79.899 Other long term (current) drug therapy; Z98.890 Other specified postprocedural states; Z92.3 Personal history of irradiation; Z92.21 Personal history of antineoplastic chemotherapy; Z86.79 Personal history of other diseases of the circulatory system; Z79.51 Long term (current) use of inhaled steroids
CPT/HCPCS: 0241U; 36415; 36556; 71045; 71250; 74230; 80053; 81001; 82803; 83605; 83735; 83880; 84100; 84145; 85025; 86480; 87040; 87389; 87633; 92526; 92610; 92611; 93005; 93010; 94640; 94664; 94760; 94762; 96361; 96374; 96375; 97110; 97112; 97162; 97530; 99285-25; A9270; C1751; J2185; J3475; J7030; J7050; J7060

== ENCOUNTER 2023-07-07 20:49 | Emergency (ER) | payer MEDICARE ==
[~2023-07-07] VITALS: Ht 177.8 cm; Wt 68.0 kg
[~2023-07-07 20:49] MED LIST changes: +ALBU2.5V5; +BISA10S PR; +DOCU100 PO; +IPRAT-ALBUT 0.5-3 ML INH; +LEVSOD112 PO; +METO50ER PO; +MEXI200 PO; +XARELTO20 MG PO
[2023-07-07 21:29] LABS: BASOPHILS ABSOLUTE AUTO 0.04 K/mm3 (0.00-0.23); BASOPHILS PERCENT AUTO 0 % (0-2); EOSINOPHILS ABSOLUTE AUTO 0.05 K/mm3 (0.00-0.68); EOSINOPHILS PERCENT AUTO 1 % (0-6); Hematocrit 42.1 % (37.0-53.0); Hemoglobin 14.4 g/dL (13.5-17.5); IMMATURE GRAN ABSOLUTE AUTO 0.07 K/mm3 (0.00-0.10); IMMATURE GRAN PERCENT AUTO 1 % (0-1); LYMPHOCYTES PERCENT AUTO 11 % (21-46); MONOCYTES ABSOLUTE AUTO 0.86 K/mm3 (0.16-1.47); MONOCYTES PERCENT AUTO 9 % (4-13); Mean Corpuscular HGB 32.4 pg (26.0-34.0); Mean Corpuscular HGB Conc 34.2 g/dL (31.5-36.5); Mean Corpuscular Volume 95 fL (80-100); Mean Platelet Volume 9.6 fL (9.1-12.4); NEUTROPHILS PERCENT AUTO 79 % (41-73); Platelet Count 200 K/mm3 (150-400); RDW Coefficient Variation 13.5 % (11.7-14.2); RDW Standard Deviation 46.6 fL (35.1-46.3); Red Blood Cell Count 4.45 M/mm3 (4.30-5.90); White Blood Cell Count 10.02 K/mm3 (4.00-11.30)
[2023-07-07 21:44] LABS: Albumin, Blood 3.5 g/dL (3.4-5.0); Albumin/Globulin Ratio 0.8 (0.8-1.8); Bilirubin, Total 0.4 mg/dL (0.1-1.0); Bun/Creatinine Ratio 13.2 (12.0-20.0); Calcium, Blood 9.4 mg/dL (8.5-10.1); Creatinine, Blood 1.21 mg/dL (0.60-1.20); Globulin, Blood 4.2 g/dL (2.2-4.0); Magnesium, Blood 1.8 mg/dL (1.6-2.4); Potassium, Blood 3.8 mmol/L (3.5-5.5); Total Protein, Blood 7.7 g/dL (6.4-8.2)
[2023-07-07 23:05] VITALS: BP 156/108
== END 2023-07-07 23:16 | disposition home or self-care (01) ==
LOC: ER 20:49
PROVIDERS: Emergency Medicine
DX: I47.20 Ventricular tachycardia, unspecified (principal); Z95.810 Presence of automatic (implantable) cardiac defibrillator; I50.22 Chronic systolic (congestive) heart failure; E03.9 Hypothyroidism, unspecified; N18.30 Chronic kidney disease, stage 3 unspecified; I48.91 Unspecified atrial fibrillation; I48.92 Unspecified atrial flutter; I25.2 Old myocardial infarction; E78.5 Hyperlipidemia, unspecified; Z79.899 Other long term (current) drug therapy; Z79.01 Long term (current) use of anticoagulants; Z79.82 Long term (current) use of aspirin; Z79.890 Hormone replacement therapy
CPT/HCPCS: 71045; 80053; 83735; 84484; 85025; 93005; 93010; 99285-25

== ENCOUNTER 2024-01-27 08:26 | Emergency (ER) | payer MEDICARE ==
[~2024-01-27] VITALS: Ht 172.7 cm; Wt 72.6 kg
[~2024-01-27 08:26] MED LIST changes: +AMOCLA875 PO; +BETAPACE AF PO; +DULCOLAX400 MG/5 M PO; +SULTRIDS PO; +VISBIOME 112.51 EACH PO
[2024-01-27 08:58] LABS: BASOPHILS PERCENT AUTO 1 % (0-2); EOSINOPHILS ABSOLUTE AUTO 0.21 K/mm3 (0.00-0.68); EOSINOPHILS PERCENT AUTO 2 % (0-6); Hematocrit 46.7 % (37.0-53.0); Hemoglobin 15.9 g/dL (13.5-17.5); IMMATURE GRAN ABSOLUTE AUTO 0.08 K/mm3 (0.00-0.10); IMMATURE GRAN PERCENT AUTO 1 % (0-1); LYMPHOCYTES ABSOLUTE AUTO 4.63 K/mm3 (0.84-5.20); LYMPHOCYTES PERCENT AUTO 37 % (21-46); MONOCYTES ABSOLUTE AUTO 1.01 K/mm3 (0.16-1.47); MONOCYTES PERCENT AUTO 8 % (4-13); Mean Corpuscular HGB 32.4 pg (26.0-34.0); Mean Corpuscular Volume 95 fL (80-100); Mean Platelet Volume 9.8 fL (9.1-12.4); NEUTROPHILS ABSOLUTE AUTO 6.61 K/mm3 (1.96-9.15); NEUTROPHILS PERCENT AUTO 52 % (41-73); Platelet Count 218 K/mm3 (150-400); RDW Coefficient Variation 15.3 % (11.7-14.2); RDW Standard Deviation 54.1 fL (35.1-46.3); Red Blood Cell Count 4.91 M/mm3 (4.30-5.90); White Blood Cell Count 12.64 K/mm3 (4.00-11.30)
[2024-01-27 09:16] LABS: Albumin, Blood 3.9 g/dL (3.4-5.0); Albumin/Globulin Ratio 0.8 (0.8-1.8); Bilirubin, Total 0.7 mg/dL (0.1-1.0); Bun/Creatinine Ratio 20.8 (12.0-20.0); Calcium, Blood 9.5 mg/dL (8.5-10.1); Creatinine, Blood 1.06 mg/dL (0.60-1.20); Globulin, Blood 4.6 g/dL (2.2-4.0); Potassium, Blood 4.5 mmol/L (3.5-5.5); Total Protein, Blood 8.5 g/dL (6.4-8.2)
[2024-01-27 09:49] LABS: Influenza A, PCR NEGATIVE (NEGATIVE); Influenza B, PCR NEGATIVE (NEGATIVE); Resp Syncytial Virus, PCR NEGATIVE (NEGATIVE); SARS-Cov-2 (COVID-19) PCR, MMC NEGATIVE (NEGATIVE)
[2024-01-27] MEDS ORDERED: MetroNIDAZOLE 500MG/NS 100 ml 100 ML IV ONE (10:40)
[2024-01-27] MEDS ORDERED: CefTRIAXone Sodium 1,000 MG in NS 100 ML IV ONE (10:40)
[2024-01-27 11:15] VITALS: BP 128/89
[2024-01-27] MEDS ORDERED: AMOCLA875 PO (11:46)
== END 2024-01-27 12:00 | disposition home or self-care (01) ==
LOC: ER 08:26
PROVIDERS: Emergency Medicine
DX: J69.0 Pneumonitis due to inhalation of food and vomit (principal); I13.0 Hypertensive heart and chronic kidney disease with heart failure and stage 1 through stage 4 chronic kidney disease, or unspecified chronic kidney disease; I50.22 Chronic systolic (congestive) heart failure; N18.30 Chronic kidney disease, stage 3 unspecified; I48.91 Unspecified atrial fibrillation; F43.10 Post-traumatic stress disorder, unspecified; I25.2 Old myocardial infarction; E78.5 Hyperlipidemia, unspecified; E03.9 Hypothyroidism, unspecified; Z79.82 Long term (current) use of aspirin; Z79.899 Other long term (current) drug therapy
CPT/HCPCS: 0241U; 71045; 80053; 83880; 84484; 85025; 93005; 93010; 96365; 96375; 99285-25; J0696

== ENCOUNTER 2024-02-23 02:36 | Emergency (ER) | payer MEDICARE ==
[~2024-02-23] VITALS: Ht 165.1 cm; Wt 54.4 kg
[2024-02-23 03:20] LABS: BASOPHILS ABSOLUTE AUTO 0.03 K/mm3 (0.00-0.23); BASOPHILS PERCENT AUTO 1 % (0-2); EOSINOPHILS ABSOLUTE AUTO 0.02 K/mm3 (0.00-0.68); EOSINOPHILS PERCENT AUTO 0 % (0-6); Hematocrit 47.3 % (37.0-53.0); Hemoglobin 15.8 g/dL (13.5-17.5); IMMATURE GRAN ABSOLUTE AUTO 0.02 K/mm3 (0.00-0.10); IMMATURE GRAN PERCENT AUTO 0 % (0-1); LYMPHOCYTES ABSOLUTE AUTO 1.03 K/mm3 (0.84-5.20); LYMPHOCYTES PERCENT AUTO 19 % (21-46); MONOCYTES ABSOLUTE AUTO 0.26 K/mm3 (0.16-1.47); MONOCYTES PERCENT AUTO 5 % (4-13); Mean Corpuscular HGB 32.6 pg (26.0-34.0); Mean Corpuscular HGB Conc 33.4 g/dL (31.5-36.5); Mean Corpuscular Volume 98 fL (80-100); Mean Platelet Volume 10.6 fL (9.1-12.4); NEUTROPHILS ABSOLUTE AUTO 4.14 K/mm3 (1.96-9.15); NEUTROPHILS PERCENT AUTO 75 % (41-73); Platelet Count 122 K/mm3 (150-400); RDW Coefficient Variation 14.2 % (11.7-14.2); RDW Standard Deviation 51.2 fL (35.1-46.3); Red Blood Cell Count 4.85 M/mm3 (4.30-5.90)
[2024-02-23 03:40] LABS: Albumin, Blood 3.5 g/dL (3.4-5.0); Albumin/Globulin Ratio 0.9 (0.8-1.8); Calcium, Blood 8.8 mg/dL (8.5-10.1); Creatinine, Blood 1.21 mg/dL (0.60-1.20); Globulin, Blood 3.9 g/dL (2.2-4.0); Potassium, Blood 4.3 mmol/L (3.5-5.5); Total Protein, Blood 7.4 g/dL (6.4-8.2)
[2024-02-23] MEDS ORDERED: DOXY100 PO (08:55)
[2024-02-23] MEDS ORDERED: Doxycycline Hyclate 100 MG TAB PO ONE (09:10)
[2024-02-23 09:15] VITALS: BP 109/99
== END 2024-02-23 10:02 | disposition home or self-care (01) ==
LOC: ER 02:36
PROVIDERS: Student in an Organized Health Care Education/Training Program
DX: R06.02 Shortness of breath (principal); Z95.810 Presence of automatic (implantable) cardiac defibrillator; Z79.899 Other long term (current) drug therapy; Z79.82 Long term (current) use of aspirin; I50.42 Chronic combined systolic (congestive) and diastolic (congestive) heart failure; I13.0 Hypertensive heart and chronic kidney disease with heart failure and stage 1 through stage 4 chronic kidney disease, or unspecified chronic kidney disease; N18.30 Chronic kidney disease, stage 3 unspecified; E78.5 Hyperlipidemia, unspecified; I25.2 Old myocardial infarction
CPT/HCPCS: 71260; 80053; 83880; 84145; 84484; 85025; 93005; 93010; 99285-25; A9270; Q9967

== ENCOUNTER 2024-04-05 09:44 | Emergency (ER) | payer MEDICARE ==
[~2024-04-05] VITALS: Ht 177.8 cm; Wt 65.8 kg
[2024-04-05 13:28] VITALS: BP 126/98
== END 2024-04-05 13:30 | disposition home or self-care (01) ==
LOC: ER 09:44
DX: Z45.02 Encounter for adjustment and management of automatic implantable cardiac defibrillator (principal); E78.5 Hyperlipidemia, unspecified; E03.9 Hypothyroidism, unspecified; F43.10 Post-traumatic stress disorder, unspecified; Z87.891 Personal history of nicotine dependence; Z79.82 Long term (current) use of aspirin; Z79.899 Other long term (current) drug therapy
CPT/HCPCS: 71045; 93005; 93010; 99284-25

== ENCOUNTER → 2024-04-24 | Outpatient (CLI) | payer MEDICARE ==
[2024-04-24 18:09] LABS: Free Thyroxine 1.03 ng/dL (0.70-1.60)
[2024-04-24 18:12] LABS: Thyroid Stimulating Hormone 3.68 uIU/mL (0.360-4.800)
== END ==
LOC: LAB 15:54 → LAB SHORT 15:54
PROVIDERS: Nurse Practitioner Family
DX: E03.8 Other specified hypothyroidism (principal)
CPT/HCPCS: 84439; 84443

== ENCOUNTER 2024-05-28 08:13 | Emergency (ER) | payer MEDICARE ==
[~2024-05-28] VITALS: Ht 177.8 cm; Wt 74.8 kg
[2024-05-28 08:48] LABS: BASOPHILS ABSOLUTE AUTO 0.07 K/mm3 (0.00-0.23); BASOPHILS PERCENT AUTO 1 % (0-2); EOSINOPHILS PERCENT AUTO 1 % (0-6); Hematocrit 52.7 % (37.0-53.0); Hemoglobin 18.5 g/dL (13.5-17.5); IMMATURE GRAN ABSOLUTE AUTO 0.04 K/mm3 (0.00-0.10); IMMATURE GRAN PERCENT AUTO 0 % (0-1); LYMPHOCYTES ABSOLUTE AUTO 2.77 K/mm3 (0.84-5.20); LYMPHOCYTES PERCENT AUTO 27 % (21-46); MONOCYTES ABSOLUTE AUTO 0.69 K/mm3 (0.16-1.47); MONOCYTES PERCENT AUTO 7 % (4-13); Mean Corpuscular HGB Conc 35.1 g/dL (31.5-36.5); Mean Corpuscular Volume 97 fL (80-100); Mean Platelet Volume 10.1 fL (9.1-12.4); NEUTROPHILS ABSOLUTE AUTO 6.54 K/mm3 (1.96-9.15); NEUTROPHILS PERCENT AUTO 64 % (41-73); Platelet Count 189 K/mm3 (150-400); RDW Coefficient Variation 14.6 % (11.7-14.2); RDW Standard Deviation 52.5 fL (35.1-46.3); Red Blood Cell Count 5.44 M/mm3 (4.30-5.90); White Blood Cell Count 10.21 K/mm3 (4.00-11.30)
[2024-05-28 09:13] LABS: Albumin, Blood 3.8 g/dL (3.4-5.0); Bun/Creatinine Ratio 20.3 (12.0-20.0); Calcium, Blood 10.1 mg/dL (8.5-10.1); Creatinine, Blood 0.99 mg/dL (0.60-1.20); Potassium, Blood 4.8 mmol/L (3.5-5.5); Total Protein, Blood 7.8 g/dL (6.4-8.2)
[2024-05-28] MEDS ORDERED: LORazepam 2 MG/ML 1ML Injection IV ONE (09:55)
[2024-05-28 10:52] LABS: CORONAVIRUS COVID-19 AG Negative (NEGATIVE); INFLUENZA A AG Negative (NEGATIVE); INFLUENZA B AG Negative (NEGATIVE)
[2024-05-28 14:35] LABS: Source, Urine Clean Catch
[2024-05-28 14:37] LABS: Appearance, Urine Clear (Clear); Bilirubin, Urine Neg (Neg); Blood, Urine Neg (Neg); Color, Urine Yellow (P-Yellow); Glucose Qualitative, Urine Neg (Neg); Ketones, Urine 2+ (Neg); Leukocyte Esterase, Urine Neg (Neg); Nitrite, Urine Neg (Neg); Protein, Urine Neg (Neg); Specific Gravity, Urine 1.015 (1.003-1.022); Urobilinogen, Urine NORM (Normal)
[2024-05-28 15:22] VITALS: BP 131/100
== END 2024-05-28 16:15 | disposition home or self-care (01) ==
LOC: ER 08:13
PROVIDERS: Emergency Medicine
DX: B34.9 Viral infection, unspecified (principal); Z79.82 Long term (current) use of aspirin; Z79.899 Other long term (current) drug therapy
CPT/HCPCS: 36415; 70450; 71045; 80053; 81003; 83605; 83880; 84484; 85025; 87040; 87428-QW; 93005; 93010; 96374; 99285-25; J2060

== ENCOUNTER 2024-07-18 15:50 | Emergency (ER) | payer MEDICARE ==
[~2024-07-18] VITALS: Ht 177.8 cm; Wt 63.5 kg
[2024-07-18] MEDS ORDERED: LORazepam 2 MG/ML 1ML Injection IV ONE (16:25)
[2024-07-18] MEDS ORDERED: INCRUSE ELLIPTA 62.5 (17:08)
[2024-07-18 17:11] LABS: BASOPHILS ABSOLUTE AUTO 0.08 K/mm3 (0.00-0.23); BASOPHILS PERCENT AUTO 1 % (0-2); EOSINOPHILS PERCENT AUTO 1 % (0-6); Hematocrit 50.4 % (37.0-53.0); Hemoglobin 17.8 g/dL (13.5-17.5); IMMATURE GRAN ABSOLUTE AUTO 0.06 K/mm3 (0.00-0.10); IMMATURE GRAN PERCENT AUTO 1 % (0-1); LYMPHOCYTES ABSOLUTE AUTO 2.95 K/mm3 (0.84-5.20); LYMPHOCYTES PERCENT AUTO 26 % (21-46); MONOCYTES ABSOLUTE AUTO 0.93 K/mm3 (0.16-1.47); MONOCYTES PERCENT AUTO 8 % (4-13); Mean Corpuscular HGB 34.1 pg (26.0-34.0); Mean Corpuscular HGB Conc 35.3 g/dL (31.5-36.5); Mean Corpuscular Volume 97 fL (80-100); Mean Platelet Volume 11.1 fL (9.1-12.4); NEUTROPHILS ABSOLUTE AUTO 7.24 K/mm3 (1.96-9.15); NEUTROPHILS PERCENT AUTO 64 % (41-73); Platelet Count 196 K/mm3 (150-400); RDW Coefficient Variation 14.1 % (11.7-14.2); Red Blood Cell Count 5.22 M/mm3 (4.30-5.90); White Blood Cell Count 11.36 K/mm3 (4.00-11.30)
[2024-07-18 17:15] VITALS: BP 160/100
== END 2024-07-18 19:55 | disposition home or self-care (01) ==
LOC: ER 15:50
PROVIDERS: Student in an Organized Health Care Education/Training Program
DX: R06.02 Shortness of breath (principal); E78.5 Hyperlipidemia, unspecified; I25.2 Old myocardial infarction; F43.10 Post-traumatic stress disorder, unspecified; Z87.891 Personal history of nicotine dependence; Z79.82 Long term (current) use of aspirin; Z79.899 Other long term (current) drug therapy
CPT/HCPCS: 71046; 83880; 84484; 85025; 93005; 93010; 96374; 99284-25; J2060

== ENCOUNTER → 2024-07-30 | Outpatient (CLI) | payer MEDICARE ==
[~2024-07-30] MED LIST changes: +INCRUSE ELLIPTA 62.5
[2024-07-30 18:00] LABS: Free Thyroxine 1.1 ng/dL (0.70-1.60); Thyroid Stimulating Hormone 1.41 uIU/mL (0.360-4.800)
== END | disposition home or self-care (01) ==
LOC: LAB 15:56 → LAB SHORT 15:56
PROVIDERS: Nurse Practitioner Family
DX: E03.8 Other specified hypothyroidism (principal)
CPT/HCPCS: 84439; 84443

== ENCOUNTER 2024-09-03 16:28 | Emergency (ER) | payer MEDICARE ==
[~2024-09-03] VITALS: Ht 177.8 cm; Wt 63.5 kg
[2024-09-03 17:37] LABS: BASOPHILS ABSOLUTE AUTO 0.05 K/mm3 (0.00-0.23); BASOPHILS PERCENT AUTO 1 % (0-2); EOSINOPHILS PERCENT AUTO 1 % (0-6); Hematocrit 47.3 % (37.0-53.0); IMMATURE GRAN ABSOLUTE AUTO 0.04 K/mm3 (0.00-0.10); IMMATURE GRAN PERCENT AUTO 0 % (0-1); LYMPHOCYTES ABSOLUTE AUTO 3.85 K/mm3 (0.84-5.20); LYMPHOCYTES PERCENT AUTO 43 % (21-46); MONOCYTES ABSOLUTE AUTO 0.83 K/mm3 (0.16-1.47); MONOCYTES PERCENT AUTO 9 % (4-13); Mean Corpuscular HGB 34.8 pg (26.0-34.0); Mean Corpuscular HGB Conc 35.9 g/dL (31.5-36.5); Mean Corpuscular Volume 97 fL (80-100); Mean Platelet Volume 10.5 fL (9.1-12.4); NEUTROPHILS ABSOLUTE AUTO 4.12 K/mm3 (1.96-9.15); NEUTROPHILS PERCENT AUTO 46 % (41-73); Platelet Count 167 K/mm3 (150-400); RDW Coefficient Variation 14.4 % (11.7-14.2); RDW Standard Deviation 51.9 fL (35.1-46.3); Red Blood Cell Count 4.89 M/mm3 (4.30-5.90); White Blood Cell Count 8.99 K/mm3 (4.00-11.30)
[2024-09-03 17:57] LABS: Albumin/Globulin Ratio 1.1 (0.8-1.8); Bun/Creatinine Ratio 17.6 (12.0-20.0); Calcium, Blood 9.7 mg/dL (8.5-10.1); Creatinine, Blood 1.31 mg/dL (0.60-1.20); Globulin, Blood 3.6 g/dL (2.2-4.0); Magnesium, Blood 1.8 mg/dL (1.6-2.4); Potassium, Blood 4.2 mmol/L (3.5-5.5); Total Protein, Blood 7.6 g/dL (6.4-8.2)
[2024-09-03] MEDS ORDERED: HyDROXyzine HCl 25 MG Tab PO ONE (19:00)
[2024-09-03 19:03] LABS: CORONAVIRUS COVID-19 AG Negative (NEGATIVE); INFLUENZA A AG Negative (NEGATIVE); INFLUENZA B AG Negative (NEGATIVE)
[2024-09-03 20:30] VITALS: BP 146/108
== END 2024-09-03 20:46 | disposition home or self-care (01) ==
LOC: ER 16:28
PROVIDERS: Student in an Organized Health Care Education/Training Program
DX: R07.9 Chest pain, unspecified (principal); I50.20 Unspecified systolic (congestive) heart failure; N18.30 Chronic kidney disease, stage 3 unspecified; I25.2 Old myocardial infarction; E03.9 Hypothyroidism, unspecified; Z95.810 Presence of automatic (implantable) cardiac defibrillator; Z79.890 Hormone replacement therapy; Z79.899 Other long term (current) drug therapy; Z79.01 Long term (current) use of anticoagulants; Z87.891 Personal history of nicotine dependence
CPT/HCPCS: 71045; 80053; 83735; 83880; 84484; 85025; 87428-QW; 93005; 93010; 99285-25; A9270

== ENCOUNTER 2024-09-05 17:47 | Emergency (ER) | payer MEDICARE ==
[~2024-09-05] VITALS: Ht 177.8 cm; Wt 63.5 kg
[~2024-09-05 17:47] MED LIST changes: -[UNRECOGNIZED DRUG - CODE] PO
[2024-09-05] MEDS ORDERED: NS 1,000 ML IV SCH (18:10)
[2024-09-05 18:55] LABS: BASOPHILS ABSOLUTE AUTO 0.06 K/mm3 (0.00-0.23); BASOPHILS PERCENT AUTO 1 % (0-2); EOSINOPHILS ABSOLUTE AUTO 0.09 K/mm3 (0.00-0.68); EOSINOPHILS PERCENT AUTO 1 % (0-6); Hematocrit 50.2 % (37.0-53.0); Hemoglobin 17.7 g/dL (13.5-17.5); IMMATURE GRAN ABSOLUTE AUTO 0.04 K/mm3 (0.00-0.10); IMMATURE GRAN PERCENT AUTO 0 % (0-1); LYMPHOCYTES PERCENT AUTO 29 % (21-46); MONOCYTES PERCENT AUTO 8 % (4-13); Mean Corpuscular HGB 34.7 pg (26.0-34.0); Mean Corpuscular HGB Conc 35.3 g/dL (31.5-36.5); Mean Corpuscular Volume 98 fL (80-100); Mean Platelet Volume 10.5 fL (9.1-12.4); NEUTROPHILS ABSOLUTE AUTO 7.16 K/mm3 (1.96-9.15); NEUTROPHILS PERCENT AUTO 62 % (41-73); Platelet Count 154 K/mm3 (150-400); RDW Coefficient Variation 14.6 % (11.7-14.2); RDW Standard Deviation 53.4 fL (35.1-46.3); White Blood Cell Count 11.65 K/mm3 (4.00-11.30)
[2024-09-05 19:18] LABS: Magnesium, Blood 1.9 mg/dL (1.6-2.4)
[2024-09-05 19:20] LABS: Albumin, Blood 4.2 g/dL (3.4-5.0); Albumin/Globulin Ratio 1.1 (0.8-1.8); Bilirubin, Total 1.6 mg/dL (0.1-1.0); Bun/Creatinine Ratio 20.2 (12.0-20.0); Calcium, Blood 9.5 mg/dL (8.5-10.1); Creatinine, Blood 1.24 mg/dL (0.60-1.20); Globulin, Blood 3.8 g/dL (2.2-4.0); Phosphorus, Blood 2.6 mg/dL (2.5-4.9); Potassium, Blood 4.5 mmol/L (3.5-5.5); Thyroid Stimulating Hormone 4.83 uIU/mL (0.360-4.800)
[2024-09-05 21:31] LABS: Free Thyroxine 1.31 ng/dL (0.70-1.60)
[2024-09-05 21:32] LABS: Triiodothyronine, Free 2.29 pg/mL (2.18-3.98)
[2024-09-05 22:11] LABS: Base Excess Venous 1.2 mmol/L; Bicarbonate Venous 24.6 mmol/L (24.0-30.0); PCO2 Venous 35.9 mmHg (38-42); pH Blood Venous 7.45 (7.34-7.37)
[2024-09-05] MEDS ORDERED: Sotalol HCl 80 MG Tab PO ONE (23:10)
[2024-09-05] MEDS ORDERED: [UNRECOGNIZED DRUG - CODE] PO (23:26)
[2024-09-06 00:30] VITALS: BP 131/106
== END 2024-09-06 00:46 | disposition home or self-care (01) ==
LOC: ER 17:47
PROVIDERS: Emergency Medicine
DX: R00.0 Tachycardia, unspecified (principal); R94.31 Abnormal electrocardiogram [ECG] [EKG]; R06.4 Hyperventilation; F41.9 Anxiety disorder, unspecified; E86.0 Dehydration; E78.5 Hyperlipidemia, unspecified; E03.9 Hypothyroidism, unspecified; I48.91 Unspecified atrial fibrillation; I48.92 Unspecified atrial flutter; N18.30 Chronic kidney disease, stage 3 unspecified; Z79.01 Long term (current) use of anticoagulants; Z79.899 Other long term (current) drug therapy; Z95.810 Presence of automatic (implantable) cardiac defibrillator; Z87.891 Personal history of nicotine dependence; J44.9 Chronic obstructive pulmonary disease, unspecified
CPT/HCPCS: 71046; 71260; 80053; 82803; 83735; 83880; 84100; 84439; 84443; 84481; 84484; 85025; 85379; 93005; 93010; 99285-25; A9270; J7030; Q9967

== ENCOUNTER → 2024-09-05 | Outpatient (CLI) | payer MEDICARE ==
[~2024-09-05] MED LIST changes: +[UNRECOGNIZED DRUG - CODE] PO
[2024-09-05 12:02] LABS: BASOPHILS ABSOLUTE AUTO 0.05 K/mm3 (0.00-0.23); BASOPHILS PERCENT AUTO 1 % (0-2); EOSINOPHILS ABSOLUTE AUTO 0.06 K/mm3 (0.00-0.68); EOSINOPHILS PERCENT AUTO 1 % (0-6); Hematocrit 44.9 % (37.0-53.0); IMMATURE GRAN ABSOLUTE AUTO 0.05 K/mm3 (0.00-0.10); IMMATURE GRAN PERCENT AUTO 1 % (0-1); LYMPHOCYTES ABSOLUTE AUTO 2.44 K/mm3 (0.84-5.20); LYMPHOCYTES PERCENT AUTO 32 % (21-46); MONOCYTES ABSOLUTE AUTO 0.73 K/mm3 (0.16-1.47); MONOCYTES PERCENT AUTO 10 % (4-13); Mean Corpuscular HGB 34.4 pg (26.0-34.0); Mean Corpuscular HGB Conc 35.6 g/dL (31.5-36.5); Mean Corpuscular Volume 97 fL (80-100); Mean Platelet Volume 10.5 fL (9.1-12.4); NEUTROPHILS ABSOLUTE AUTO 4.35 K/mm3 (1.96-9.15); NEUTROPHILS PERCENT AUTO 57 % (41-73); Platelet Count 150 K/mm3 (150-400); RDW Coefficient Variation 14.7 % (11.7-14.2); RDW Standard Deviation 52.3 fL (35.1-46.3); Red Blood Cell Count 4.65 M/mm3 (4.30-5.90); White Blood Cell Count 7.68 K/mm3 (4.00-11.30)
[2024-09-05 12:13] LABS: Albumin, Blood 3.8 g/dL (3.4-5.0); Albumin/Globulin Ratio 1.2 (0.8-1.8); Bilirubin, Total 1.4 mg/dL (0.1-1.0); Calcium, Blood 9.8 mg/dL (8.5-10.1); Creatinine, Blood 1.2 mg/dL (0.60-1.20); Globulin, Blood 3.3 g/dL (2.2-4.0); Total Protein, Blood 7.1 g/dL (6.4-8.2)
== END ==
LOC: LAB 11:56 → LAB SHORT 11:56
PROVIDERS: Physician Assistant
DX: R00.0 Tachycardia, unspecified (principal)
CPT/HCPCS: 80053; 83880; 85025

== ENCOUNTER → 2024-11-13 | Outpatient (CLI) | payer MEDICARE ==
[~2024-11-13] MED LIST changes: +[UNRECOGNIZED DRUG - CODE] PO
[2024-11-14 10:50] LABS: Bun/Creatinine Ratio 15.5 (12.0-20.0); Calcium, Blood 9.5 mg/dL (8.5-10.1); Creatinine, Blood 1.1 mg/dL (0.60-1.20); Potassium, Blood 3.9 mmol/L (3.5-5.5)
== END ==
LOC: LAB SHORT 14:50 → LAB 14:50
PROVIDERS: Nurse Practitioner Family
DX: I13.0 Hypertensive heart and chronic kidney disease with heart failure and stage 1 through stage 4 chronic kidney disease, or unspecified chronic kidney disease (principal); N18.31 Chronic kidney disease, stage 3a
CPT/HCPCS: 80048

== ENCOUNTER 2025-02-09 09:20 | Emergency (ER) | payer MEDICARE ==
[~2025-02-09] VITALS: Ht 177.8 cm; Wt 59.0 kg
[2025-02-09 09:57] LABS: BASOPHILS ABSOLUTE AUTO 0.07 K/mm3 (0.00-0.23); BASOPHILS PERCENT AUTO 1 % (0-2); EOSINOPHILS ABSOLUTE AUTO 0.13 K/mm3 (0.00-0.68); EOSINOPHILS PERCENT AUTO 1 % (0-6); Hematocrit 47.4 % (37.0-53.0); Hemoglobin 16.4 g/dL (13.5-17.5); IMMATURE GRAN ABSOLUTE AUTO 0.15 K/mm3 (0.00-0.10); IMMATURE GRAN PERCENT AUTO 1 % (0-1); LYMPHOCYTES ABSOLUTE AUTO 2.24 K/mm3 (0.84-5.20); LYMPHOCYTES PERCENT AUTO 21 % (21-46); MONOCYTES ABSOLUTE AUTO 1.20 K/mm3 (0.16-1.47); MONOCYTES PERCENT AUTO 11 % (4-13); Mean Corpuscular HGB Conc 34.6 g/dL (31.5-36.5); Mean Corpuscular Volume 99 fL (80-100); NEUTROPHILS ABSOLUTE AUTO 6.95 K/mm3 (1.96-9.15); NEUTROPHILS PERCENT AUTO 65 % (41-73); NRBC ABSOLUTE 0.00 K/mm3 (0.00-0.02); NRBC Auto 0.0 /100 WBC (0.0-0.2); Platelet Count 160 K/mm3 (150-400); RDW Coefficient Variation 14.6 % (11.7-14.2); RDW Standard Deviation 54.0 fL (35.1-46.3)
[2025-02-09 10:17] LABS: Alanine Aminotransfer (ALT/SGP 28.0 U/L (12-78); Albumin, Blood 3.7 g/dL (3.4-5.0); Albumin/Globulin Ratio 0.9 (0.8-1.8); Anion Gap 2.0 mmol/L (3-11); Aspartate Aminotrans (AST/SGOT 23.0 U/L (12-37); Bilirubin, Total 1.3 mg/dL (0.1-1.0); Blood Urea Nitrogen 21.0 mg/dL (8-24); CO2, Blood 29.0 mmol/L (21-32); Calcium, Blood 9.3 mg/dL (8.5-10.1); Chloride, Blood 101.0 mmol/L (98-108); Creatinine, Blood 0.97 mg/dL (0.60-1.20); Globulin, Blood 4.1 g/dL (2.2-4.0); Glucose, Blood 144.0 mg/dL (70-99); Potassium, Blood 4.3 mmol/L (3.5-5.5); Sodium, Blood 128.0 mmol/L (136-145); Total Protein, Blood 7.8 g/dL (6.4-8.2)
[2025-02-09 12:06] LABS: Source, Urine Clean Catch
[2025-02-09 12:26] LABS: Bilirubin, Urine Neg (Neg); Color, Urine Yellow (P-Yellow); Glucose Qualitative, Urine Neg (Neg); Ketones, Urine Neg (Neg); Leukocyte Esterase, Urine Neg (Neg); Protein, Urine 2+ (Neg); Specific Gravity, Urine 1.005 (1.003-1.022); Urobilinogen, Urine 2+ (Normal)
[2025-02-09 12:44] LABS: White Blood Cells, Urine 0-2 /hpf (0-5)
[2025-02-09] MEDS ORDERED: ONDA4ODT MM (12:55)
[2025-02-09 13:26] VITALS: BP 100/75
== END 2025-02-09 13:29 | disposition home or self-care (01) ==
LOC: ER 09:20
PROVIDERS: Emergency Medicine
DX: R31.9 Hematuria, unspecified (principal); R53.83 Other fatigue; F32.A Depression, unspecified; I50.20 Unspecified systolic (congestive) heart failure; N18.30 Chronic kidney disease, stage 3 unspecified; E78.5 Hyperlipidemia, unspecified; E03.9 Hypothyroidism, unspecified; J44.9 Chronic obstructive pulmonary disease, unspecified; I25.2 Old myocardial infarction; I48.91 Unspecified atrial fibrillation; Z88.5 Allergy status to narcotic agent; Z79.01 Long term (current) use of anticoagulants; Z79.899 Other long term (current) drug therapy; Z87.891 Personal history of nicotine dependence; Z95.810 Presence of automatic (implantable) cardiac defibrillator
CPT/HCPCS: 36415; 71046; 80053; 81001; 84484; 85025